=== PATIENT | male | born 1945 | race Caucasian/White ===

== ENCOUNTER 2019-09-14 19:34 | Inpatient (IN) | payer MEDICARE, OTHER ==
[~2019-09-14] VITALS: Ht 175.3 cm; Wt 135.6 kg
[~2019-09-14 19:34] MED LIST: KEFLEX500 MG
[2019-09-14] MEDS ORDERED: SODIUM CHLORIDE 0.9% 1000ML 2,000 ML ONE (20:05)
--- NOTE | 2019-09-14 20:10 | NUR ---
TRIPLE LUMEN CENTRAL LINE PLACED BY ER MD, PT TOLERATED PROCEDURE WELL
[2019-09-14] MEDS ORDERED: ACETAMINOPHEN 325 MG TAB PO ONE (20:20)
--- NOTE | 2019-09-14 20:22 | NUR ---
RAD AT BEDSIDE FOR PORTABLE CHEST XRAY
[2019-09-14] MEDS ORDERED: ALBUTEROL/IPRATROPIUM 3 ML NEB NEB ONE (20:30)
[2019-09-14] MEDS ORDERED: CEFEPIME HCL 1 GM VIAL IV SCH (20:30)
[2019-09-14] MEDS ORDERED: SODIUM CHLORIDE 0.9% IV SCH (20:30)
[2019-09-14] MEDS ORDERED: NOREPINEPHRINE INJ 4MG/4ML 8 MG in DEXTROSE 5% 250ML 250 ML IV PRN (20:30)
--- NOTE | 2019-09-14 20:34 | NUR ---
RT NOTIFIED OF NEBS
[2019-09-14] MEDS ORDERED: NOREPINEPHRINE 8 MG/D5W 250 ML 250 ML ONE (20:38)
[2019-09-14 20:43] LABS: BASOPHILS # (AUTO) 0.1 (0.0-0.1); BASOPHILS % 0.7 % (0.0-1.0); EOSINOPHILS # (AUTO) 0.1 (0.0-0.4); EOSINOPHILS % 0.5 % (0.0-6.0); HEMATOCRIT 37.3 % (38.2-49.6); HEMOGLOBIN 11.8 g/dL (14.0-18.0); LYMPHOCYTES # (AUTO) 1.3 (1.0-3.2); LYMPHOCYTES % 12.5 % (18.0-39.1); MEAN CORPUSCULAR HEMOGLOBIN 33.3 pg (28-32); MEAN CORPUSCULAR HGB CONC 31.6 g/dL (31-35); MEAN CORPUSCULAR VOLUME 105.4 fL (81-99); MONOCYTES # (AUTO) 2.1 (0.2-0.8); MONOCYTES % 20.8 % (4.4-11.3); NEUTROPHILS # (AUTO) 6.6 (2.1-6.9); NEUTROPHILS % 64.4 % (38.7-80.0); PLATELET COUNT 240 x10e3/uL (140-360); RED BLOOD COUNT 3.54 x10e6/uL (4.3-5.7); RED CELL DISTRIBUTION WIDTH 15.8 % (11.7-14.4)
--- NOTE | 2019-09-14 20:47 | Diagnostic Imaging Report ---
EXAMINATION: CHEST SINGLE (PORTABLE) INDICATION: ^SOB ^[id number] ^2029 COMPARISON: None FINDINGS: AP view TUBES and LINES: There is a right IJ central line in place the distal tip at the level of SVC. There is also a kink noted above the clavicle. LUNGS: Lungs are well inflated. There is no evidence of pneumonia or pulmonary edema. PLEURA: No pleural effusion or pneumothorax. HEART AND MEDIASTINUM: The cardiomediastinal silhouette is unremarkable. BONES AND SOFT TISSUES: No acute osseous lesion. Soft tissues are unremarkable. IMPRESSION: Right IJ central line in place the distal tip at the level of SVC and kink noted along the course of the catheter. Signed by: Dwight Serrano MD on 09/14/2019 8:44 PM
[2019-09-14] MEDS: CEFEPIME 1GM/NS 0.9% 50 ML 50 ML IV SCH (20:52)
[2019-09-14 20:53] LABS: INR 0.97; PROTHROMBIN TIME 13.4 seconds (11.9-14.5)
[2019-09-14 20:54] LABS: PARTIAL THROMBOPLASTIN TIME 29.3 seconds (23.8-35.5)
[2019-09-14] MEDS ORDERED: NOREPINEPHRINE 8 MG/D5W 250 ML 250 ML IV PRN (21:00)
[2019-09-14 21:01] LABS: ALBUMIN 2.5 g/dL (3.5-5.0); ALBUMIN/GLOBULIN RATIO 0.8 (0.8-2.0); ANION GAP 25.2 mmol/L (8-16); CALCIUM 9.6 mg/dL (8.4-10.2); CREATININE, SERUM 10.9 mg/dL (0.72-1.25); POTASSIUM 5.2 mmol/L (3.5-5.1)
[2019-09-14 21:07] LABS: CREATINE KINASE MB 7.3 ng/mL (0-5.0)
--- NOTE | 2019-09-14 21:45 | NUR ---
RECTAL TUBE PLACED PER MD ORDER. +LIGHT BROWN STOOL RETURN. PT DID NOT TOLERATE WELL.
[2019-09-14 22:58] VITALS: BP 119/100
--- NOTE | 2019-09-14 23:34 | Diagnostic Imaging Report ---
EXAM: CT Chest, Abdomen and Pelvis WITHOUT contrast INDICATION: ^abdsob ^[id number] ^2213 COMPARISON: None. TECHNIQUE: Chest, abdomen and pelvis were scanned utilizing a multidetector helical scanner from the lung apex to the pubic symphysis without administration of IV contrast. Absence of intravenous contrast decreases sensitivity for detection of focal lesions and vascular pathology. Coronal and sagittal reformations were obtained. Routine protocol was performed. IV CONTRAST: None ORAL CONTRAST: None COMPLICATIONS: None RADIATION DOSE: Total DLP: 1079.5 mGy*cm Estimated effective dose: (DLP x 0.015 x size factor) mSv CTDIvol has been reviewed. It is below the limits set by the Radiation Protocol Committee (RPC). FINDINGS: LINES and TUBES: Right IJ central line in place with tip terminating in mid SVC. Carlson catheter. Rectal tube. LUNGS AND AIRWAYS: Bilateral dependent atelectasis. Bibasilar atelectasis/scarring. Airways are normal. PLEURA: The pleural spaces are clear. HEART AND MEDIASTINUM: The thyroid gland is normal. No mediastinal, hilar or axillary lymphadenopathy. The heart is normal in size.. There is no pericardial effusion. Mild atherosclerotic calcification of aorta and coronary arteries. HEPATOBILIARY: Diffuse hepatic steatosis. Otherwise, unenhanced liver is unremarkable. No focal hepatic lesions. No biliary ductal dilation. GALLBLADDER: No radio-opaque stones. Suspected gallbladder sludge. No wall thickening. SPLEEN: No splenomegaly. PANCREAS: No focal masses or ductal dilatation. ADRENALS: No adrenal nodules KIDNEYS/URETERS: No hydronephrosis. Limited for evaluation of renal parenchyma without intravenous contrast. No stones. GI TRACT: Rectal tube in place. No abnormal distention, wall thickening, or evidence of bowel obstruction. There are diverticula within the colon without evidence of diverticulitis. Appendix is normal. PELVIC ORGANS/BLADDER: Unremarkable. LYMPH NODES: No lymphadenopathy. VESSELS: There is moderate atherosclerotic disease in the aorta and major arterial branches. PERITONEUM / RETROPERITONEUM: No free air or fluid. BONES: Mild degenerative changes of spine. Grade 1 retrolisthesis of L5 in relation to L4. SOFT TISSUES: Unremarkable. IMPRESSION: 1. No definite evidence of acute inflammatory process in the chest, abdomen, or pelvis, considering limitations of unenhanced study. 2. Hepatic steatosis. 3. Colonic diverticulosis without evidence of diverticulitis. Signed by: Dr. Gurpreet Ricketts MD on 09/14/2019 11:31 PM
--- OUTSIDE RECORDS SUMMARY | 2019-09-14 23:59 | XMS REPORT ---
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 Allergies, Adverse Reactions, Alerts This patient has no known allergies or adverse reactions. Medications This patient has no known medications. Results Test Description Test Time Test Comments Text Results Atomic Results Result Comments CT ABDOMEN/PELVIS WO 2019-09-14 22:52:00 [place] [id number] Patient Name: JUANITO FLORES MR #: [id number] : 1945 Age/Sex: 74/M Req #: [id number] [facility] Physician: Ordered by: ROSY BILLS DO Report #: [id number] Location: ER Room/Bed: Procedure: [id number] CT/CT ABDOMEN/PELVIS WO Exam Date: 09/14/19 Exam Time: 2214 REPORT STATUS: Signed EXAM: CT Chest, Abdomen and Pelvis WITHOUT contrast INDICATION: abdsob [id number] 2214 COMPARISON: None. TECHNIQUE: Chest, abdomen and pelvis were scanned utilizing a multidetector helical scanner from the lung apex to the pubic symphysis without administration of IV contrast. Absence of intravenous contrast decreases sensitivity for detection of focal lesions and vascular pathology. Coronal and sagittal reformations were obtained. Routine protocol was performed. IV CONTRAST: None ORAL CONTRAST: None COMPLICATIONS: None RADIATION DOSE: Total DLP: 1079.5 mGy*cm Estimated effective dose: (DLP x 0.015 x size factor) mSv CTDIvol has been reviewed. It is below the limits set by the Radiation Protocol Committee (RPC). FINDINGS: LINES and TUBES: Right IJ central line in place with tip terminating in mid SVC. Carlson catheter. Rectal tube. LUNGS AND AIRWAYS: Bilateral dependent atelectasis. Bibasilar atelectasis/scarring. Airways are normal. PLEURA: The pleural spaces are clear. HEART AND MEDIASTINUM: The thyroid gland is normal. No mediastinal, hilar or axillary lymphadenopathy. The heart is normal in size.. There is no pericardial effusion. Mild atherosclerotic calcification of aorta and coronary arteries. HEPATOBILIARY: Diffuse hepatic steatosis. Otherwise, unenhanced liver is unremarkable. No focal hepatic lesions. No biliary ductal dilation. GALLBLADDER: No radio-opaque stones. Suspected gallbladder sludge. No wall thickening. SPLEEN: No splenomegaly. PANCREAS: No focal masses or ductal dilatation. ADRENALS: No adrenal nodules KIDNEYS/URETERS: No hydronephrosis. Limited for evaluation of renal parenchyma without intravenous contrast. No stones. GI TRACT: Rectal tube in place. No abnormal distention, wall thickening, or evidence of bowel obstruction. There are diverticula within the colon without evidence of diverticulitis. Appendix is normal. PELVIC ORGANS/BLADDER: Unremarkable. LYMPH NODES: No lymphadenopathy. VESSELS: There is moderate atherosclerotic disease in the aorta and major arterial branches. PERITONEUM / RETROPERITONEUM: No free air or fluid. BONES: Mild degenerative changes of spine. Grade 1 retrolisthesis of L5 in relation to L4. SOFT TISSUES: Unremarkable. IMPRESSION: 1. No definite evidence of acute inflammatory process in the chest, abdomen, or pelvis, considering limitations of unenhanced study. 2. Hepatic steatosis. 3. Colonic diverticulosis without evidence of diverticulitis. Signed by: Dr. Gurpreet Engle MD on 09/14/2019 11:31 PM Dictated By: GURPREET ENGLE MD 30 Transcribed By: ROBERT on 09/14/192330 COPY TO: ROSY BILLS DO CT CHEST WO 2019-09-14 22:52:00 [address] [place], [place] [address] Patient Name: JUANITO FLORES MR #: [id number] : 1945 Age/Sex: 74/M Req #: [id number] Adm Physician: Ordered by: ROSY BILLS DO Report #: [id number] Location: ER Room/Bed: Procedure: [id number] CT/CT CHEST WO Exam Date: 09/14/19 Exam Time: 2214 REPORT STATUS: Signed EXAM: CT Chest, Abdomen and Pelvis WITHOUT contrast IND ICATION: abdsob [id number] 2214 COMPARISON: None. TECHNIQUE: Chest, abdomen and pelvis were scanned utilizing a multidetector helical scanner from the lung apex to the pubic symphysis without administration of IV contrast. Absence of intravenous contrast decreases sensitivity for detection of focal lesions and vascular pathology. Coronal and sagittal reformations were obtained. Routine protocol was performed. IV CONTRAST: None ORAL CONTRAST: None COMPLICATIONS: None RADIATION DOSE: Total DLP: 1079.5 mGy*cm Estimated effective dose: (DLP x 0.015 x size factor) mSv CTDIvol has been reviewed. It is below the limits set by the Radiation Protocol Committee (RPC). FINDINGS: LINES and TUBES: Right IJ central line in place with tip terminating in mid SVC. Carlson catheter. Rectal tube. LUNGS AND AIRWAYS: Bilateral dependent atelectasis. Bibasilar atelectasis/scarring. Airways are normal. PLEURA: The pleural spaces are clear. HEART AND MEDIASTINUM: The thyroid gland is normal. No mediastinal, hilar or axillary lymphadenopathy. The heart is normal in size.. There is no pericardial effusion. Mild atherosclerotic calcification of aorta and coronary arteries. HEPATOBILIARY: Diffuse hepatic steatosis. Otherwise, unenhanced liver is unremarkable. No focal hepatic lesions. No b iliary ductal dilation. GALLBLADDER: No radio-opaque stones. Suspected gallbladder sludge. No wall thickening. SPLEEN: No splenomegaly. PANCREAS: No focal masses or ductal dilatation. ADRENALS: No adrenal nodules KIDNEYS/URETERS: No hydronephrosis. Limited for evaluation of renal parenchyma without intravenous contrast. No stones. GI TRACT: Rectal tube in place. No abnormal distention, wall thickening, or evidence of bowel obstruction. There are diverticula within the colon without evidence of diverticulitis. Appendix is normal. PELVIC ORGANS/BLADDER: Unremarkable. LYMPH NODES: No lymphadenopathy. VESSELS: There is moderate atherosclerotic disease in the aorta and major arterial branches. PERITONEUM / RETROPERITONEUM: No free air or fluid. BONES: Mild degenerative changes of spine. Grade 1 retrolisthesis of L5 in relation to L4. SOFT TISSUES: Unremarkable. IMPRESSION: 1. No definite evidence of acute inflammatory process in the chest, abdomen, or pelvis, considering limitations of unenhanced study. 2. Hepatic steatosis. 3. Colonic diverticulosis without evidence of diverticulitis. Signed by: Dr. Gurpreet Engle MD on 09/14/2019 11:31 PM Dictated By: GURPREET ENGLE MD 233 Transcribed By: ROBERT on 09/14/19 233 COPY TO: ROSY BILLS DO CHEST SINGLE (PORTABLE) 2019-09-14 20:42:00 [place] [address] Patient Name: JUANITO FLORES MR #: [id number] : 1945 Age/Sex: 74/M Req #: [id number] Adm Physician: Ordered by: ROSY BILLS DO Report #: [id number] Location: ER Room/Bed: Procedure: [id number] DX/CHEST SINGLE (PORTABLE) Exam Date: 09/14/19 Exam Time: 2029 REPORT STATUS: Signed EXAMINATION: CHEST SINGLE (PORTABLE) INDICATION: SOB [id number] COMPARISON: None FINDINGS: AP view TUBES and LINES: There is a right IJ central line in place the distal tip at the level of SVC. There is also a kink noted above the clavicle. LUNGS: Lungs are well inflated. There is no evidence of pneumonia or pulmonary edema. PLEURA: No pleural effusion or pneumothorax. HEART AND MEDIASTINUM: The cardiomediastinal silhouette is unremarkable. BONES AND SOFT TISSUES: No acute osseous lesion. Soft tissues are unremarkable. IMPRESSION: Right IJ central line in place the distal tip at the level of SVC and kink noted along the course of the catheter. Signed by: Dwight Pike MD on 09/14/2019 8:44 PM Dictated By: DWIGHT PIKE MD 43 Transcribed By: ROBERT on 09/14/192043 COPY TO: ROSY BILLS DO
[2019-09-15] VITALS (33 sets, daily range): BP systolic 53–131; BP diastolic 22–97
[2019-09-15] MEDS ORDERED: SODIUM BICARBONATE 8.4% SYRING 75 ML in DEXTROSE 5%/0.45% SOD CHL 1,000 ML IV SCH ×2
[2019-09-15] MEDS: METRONIDAZOLE 500MG/NS 100ML 100 ML IV SCH ×2 (00:49→06:36)
[2019-09-15 02:15] LABS: CLARITY,URINE HAZY (CLEAR); COLOR,URINE AMBER (YELLOW)
[2019-09-15] MEDS ORDERED: DILTIAZEM HCL60 MG PO (02:15)
[2019-09-15] MEDS ORDERED: CYANOCOBALAMIN INJ 1,000 MCG/ML VIAL IM ONE (02:15)
[2019-09-15] MEDS ORDERED: THIAMINE HCL INJ 100 MG/ML 2ML VIAL IV ONE (02:15)
[2019-09-15 02:16] LABS: KETONES,URINE NEGATIVE (NEGATIVE); LEUKOCYTE ESTERASE ,URINE NEGATIVE (NEGATIVE); NITRITE,URINE NEGATIVE (NEGATIVE); PROTEIN,URINE DIPSTICK 1+ (NEGATIVE); URINE UROBILINOGEN 0.2 mg/dL (0.2 - 1)
[2019-09-15] MEDS ORDERED: LOSARTAN POTAS100 MG PO (02:16)
[2019-09-15] MEDS ORDERED: ATORVASTATIN CA10 MG PO (02:16)
[2019-09-15 02:17] LABS: AMORPHOUS SEDIMENT,URINE MANY (FEW); BACTERIA,URINE MANY /HPF; BILIRUBIN,URINE MODERATE (NEGATIVE); EPITHELIAL CELLS,URINE MODERATE /LPF
[2019-09-15] MEDS ORDERED: PENTASA500 MG PO (02:17)
--- NOTE | 2019-09-15 02:45 | NUR ---
Pt refusing to go to CT scan at this time. Pt states to leave him alone to let him sleep. I explained the importance by pt continued to refuse. Pt has medications schedule at 0600 and will ask him again to go to CT scan at that time.
[2019-09-15 05:20] LABS: BASOPHILS % 0.3 % (0.0-1.0); EOSINOPHILS % 0.1 % (0.0-6.0); HEMATOCRIT 35.4 % (38.2-49.6); HEMOGLOBIN 11.1 g/dL (14.0-18.0); LYMPHOCYTES # (AUTO) 0.3 (1.0-3.2); LYMPHOCYTES % 3.5 % (18.0-39.1); MEAN CORPUSCULAR HEMOGLOBIN 33.6 pg (28-32); MEAN CORPUSCULAR HGB CONC 31.4 g/dL (31-35); MEAN CORPUSCULAR VOLUME 107.3 fL (81-99); MONOCYTES # (AUTO) 0.2 (0.2-0.8); MONOCYTES % 1.7 % (4.4-11.3); NEUTROPHILS % 93.4 % (38.7-80.0); PLATELET COUNT 232 x10e3/uL (140-360); RED CELL DISTRIBUTION WIDTH 15.9 % (11.7-14.4)
[2019-09-15 05:41] LABS: ALBUMIN 2.4 g/dL (3.5-5.0); ALBUMIN/GLOBULIN RATIO 0.8 (0.8-2.0); ANION GAP 23.2 mmol/L (8-16); CALCIUM 8.4 mg/dL (8.4-10.2); CREATININE, SERUM 9.47 mg/dL (0.72-1.25); POTASSIUM 5.2 mmol/L (3.5-5.1)
--- NOTE | 2019-09-15 07:00 | NUR ---
Bedside report given to Tasha Armstrong RN.
[2019-09-15 07:08] LABS: BAND NEUTROPHILS % (MANUAL) 2 %; LYMPHOCYTES % (MANUAL) 4 % (19-48); MONOCYTES % (MANUAL) 1 % (3.4-9.0); NEUTROPHILS % (MANUAL) 93 % (40-74); PLATELET ESTIMATE ADEQUATE; PLATELET MORPHOLOGY COMMENT NORMAL; TOXIC GRANULATION MODERATE
[2019-09-15 07:09] LABS: ANISOCYTOSIS SLIGHT; RBC MORPHOLOGY COMMENT ABNORMAL
[2019-09-15] MEDS ORDERED: DIGOXIN INJ 0.25 MG/ML 2 ML AMP IV STA (07:29)
--- NOTE | 2019-09-15 07:40 | NUR ---
PT NOTED WITH HR IN 135-140'S AT THIS TIME, PT DENIES ANY CHEST PAIN/PRESSURE OF SOB, CALLED RECEIVED ORDERS.
[2019-09-15] MEDS: CEFEPIME 1GM/NS 0.9% 50 ML 50 ML IV SCH (07:54)
[2019-09-15] MEDS: FOLIC ACID 1 MG TAB PO SCH (07:57)
--- NOTE | 2019-09-15 08:38 | NUR ---
NOTIFIED PT HR STILL IN 130'S AFTER DOSE OF DIGOXIN, RECEIVED ORDERS
[2019-09-15] MEDS ORDERED: DILTIAZEM HCL 125 ML IV SCH (09:00)
--- NOTE | 2019-09-15 09:15 | Consultation ---
DATE OF CONSULTATION: 09/15/2019 Pulmonary Critical Care Consultation CHIEF COMPLAINT: Neck/back pain, weakness, difficulty walking, and diarrhea. HISTORY OF PRESENT ILLNESS: The patient is a 74-year-old man. He reports a history of chronic neck pain, chronic back pain, diabetes, and hypertension. Approximately 4 weeks ago, he had a spinal injection for chronic low back pain. He subsequently developed difficulty walking and reports that he fell and fractured a rib. He also had a small pneumothorax at that time. He also complains of and diarrhea and abdominal cramping for the past 7-10 days. He has noted possible fevers. He also complains of worsening weakness and difficulty walking. When he came to the emergency department, he was found to have a creatinine of 10 with a baseline of 1.98 two years ago. He was started on intravenous fluids as well as Levophed and antibiotics. His blood pressure is subsequently improved and his Levophed was down to 5. PAST SURGICAL HISTORY: 1. Status post drainage of perirectal abscess in 2017. 2. History of spinal injections for chronic back pain. 3. History of prior hip surgery. PAST MEDICAL HISTORY: 1. Crohn disease. 2. Hypertension. 3. Diabetes. 4. Chronic neck pain. 5. Chronic back pain. 6. Chronic renal insufficiency. SOCIAL HISTORY: The patient is a smoker. He smokes about half a pack a day. He has several drinks a day. He lives in [facility] at times, but also travels back and forth to the [facility] [address]. ALLERGIES: THERE ARE NO KNOWN DRUG ALLERGIES. FAMILY HISTORY: Noncontributory. REVIEW OF SYSTEMS: The patient may have had fevers. He has no headache. He has chronic neck pain. He has no chest pain. He does complain of some dyspnea. He has some abdominal cramping. He reports some diarrhea. He reports leg weakness as well as arm weakness. He has difficulty walking. PHYSICAL EXAMINATION: VITAL SIGNS: The patient is afebrile. The blood pressure is 102/35 with a pulse of 66 and saturation 97%. HEENT: No facial swelling or erythema. LYMPHATIC: No submandibular, cervical, or supraclavicular adenopathy. CARDIAC: Reveals regular rate and rhythm with normal S1, S2. LUNGS: Auscultation of lungs reveals clear breath sounds bilaterally. There is wheezing. ABDOMEN: Soft, though there is tenderness. There is no rebound. There is some weakness in the lower extremities. There is no leg edema. RADIOGRAPHIC DATA: 1. CT scan of the abdomen and pelvis shows some diverticulosis, but no evidence of diverticulitis. He has some hepatic steatosis. 2. His CT scan of the chest shows no acute disease. LABORATORY DATA: White blood cell count is 10.2 and hemoglobin is 11.8. The platelet count is 240. Sodium is 133 and carbon dioxide is 13 with an anion gap of 20. BUN is 116. Creatinine is 10.9. Lactic acid is normal. BNP is 249. IMPRESSION: 1. Acute renal failure. 2. History of Crohn disease with acute onset of diarrhea. 3. Chronic neck pain with worsening gait. 4. Chronic lower back pain. 5. Pneumothorax, rib fracture from a fall last month. 6. Hypertension. 7. Possible chronic obstructive pulmonary disease. PLAN: 1. The patient is receiving IV fluids. 2. Continue to monitor renal function and urine output. 3. Continue antibiotics and await culture results. 4. GI evaluation. 5. CT or MRI of the cervical spine and lumbar spine. 6. Consider neurological consultation. Sae Loja MD [facility]/MODL /[id number]
--- NOTE | 2019-09-15 09:21 | NUR ---
SPOKE TO PATIENT REGARDING CT, PT STATES "NOW YOU JUST FORGET IT JOSEPH ALREADY DONE IT 3 OTHER TIMES AND THEY NEVER DO NOTHING, JUST TELL THEM I SAID NO"
[2019-09-15] MEDS ORDERED: LORAZEPAM INJ 2 MG/ML VIAL IV PRN (10:30)
[2019-09-15] MEDS: SODIUM BICARBONATE 8.4% 75 ML in DEXTROSE 5%/0.45% SOD CHL 1,000 ML IV SCH ×2 (10:41→17:34)
[2019-09-15] MEDS ORDERED: ADENOSINE 6 MG/2 ML VIAL IV PRN (10:45)
[2019-09-15] MEDS ORDERED: INSULIN REGULAR, HUMAN 100 UNIT/1 ML 3ML VIAL IV ONE (11:30)
[2019-09-15] MEDS ORDERED: DEXTROSE 50% SYRINGE 50 ML IV ONE (11:30)
--- NOTE | 2019-09-15 13:35 | Consultation ---
DATE OF CONSULTATION: 09/14/2019 Cardiology Consultation CONSULTING PHYSICIAN: Ector Gomez MD, Interventional Cardiology. REASON FOR CONSULTATION: Tachycardia/arrhythmia. HISTORY OF PRESENT ILLNESS: Mr. Brown is a 74-year-old pleasant man with history of morbid obesity, hypertension, Crohn disease, diabetes mellitus, CKD, active smoking, and chronic back pain, who presents with several days of diarrhea. He was found to have acute renal failure, hypotension requiring pressors. He was initiated on antibiotics and is transferred to ICU for further care. He denies any chest pain or shortness of breath. On telemetry, he is noted to have episodes of sinus rhythm alternating with supraventricular tachycardia, short RP interval, rate in 130s, this seems paroxysmal in onset. He has associated palpitations, ptosis. He describes several years ago an episode of tachyarrhythmia for which he was placed on diltiazem at that time. He is currently living in [facility] and frequently travels back to visit his mother. His mother is currently hospitalized in this hospital. REVIEW OF SYSTEMS: A 12-system review is negative except for as noted above. PAST SURGICAL HISTORY: Remarkable for spinal injections, prior head surgery, drainage of perirectal abscess. PAST MEDICAL HISTORY: Includes hypertension, diabetes, chronic back pain, chronic renal disease, Crohn disease, tachyarrhythmia, unspecified. SOCIAL HISTORY: Smoker, half a pack a day. Occasional alcohol use. No drug use. Lives in [facility]. ALLERGIES: NO KNOWN DRUG ALLERGIES. FAMILY HISTORY: Noncontributory. PHYSICAL EXAMINATION: VITAL SIGNS: Temperature 98.9, heart rate 71, respiratory rate 22, blood pressure 105/37, O2 saturation 99% on 2 L/minute nasal cannula. GENERAL: No acute distress, alert. NECK: No JVD. CHEST: Clear to auscultation. CARDIOVASCULAR: Regular rate and rhythm. Normal S1, S2. Distant heart sounds. No murmurs or rubs. No S3 or S4. ABDOMEN: Soft. No rebound or guarding. Bowel sounds positive. EXTREMITIES: Without edema. Warm distal extremities. CARDIOVASCULAR MEDICATIONS: Reviewed. Levophed drip, heparin 5000 units subcu every 12 hours, sodium bicarbonate IV drip. LABORATORY STUDIES: White blood cells 8.6, hemoglobin 11, platelets 232. INR 0.9, PT 13.4, PTT 29.3. Sodium 134, potassium 5.2, chloride 105, bicarbonate 11, BUN 105, creatinine 9.47, glucose 222, lactic acid 1.2, total bilirubin is 0.6, AST 32, ALT 60, alkaline phosphatase 107. BNP 249, total protein 5.5, albumin 2.4. EKG reveals short RP tachycardia. Impressions of supraventricular tachycardia. Abdomen and pelvis CT remarkable for no definitive evidence of acute inflammatory process in chest, abdomen, or pelvis considering limitations of study, hepatic steatosis, colonic diverticulosis without evidence of diverticulitis. ASSESSMENT: 1. A 74-year-old man with history of Crohn disease, hypertension, diabetes, obesity, chronic back pain and history of arrhythmia, unspecified presents with diarrhea. 2. Shock, severe sepsis with septic shock versus hypovolemic shock, status post fluid resuscitation, now requiring pressors. 3. Acute renal failure. 4. Paroxysmal supraventricular tachycardia. RECOMMENDATIONS: 1. Adenosine 6 mg IV push p.r.n. SVT, can follow with 12 mg IV push if initial bolus does not resolve arrhythmia. 2. Wean pressors as tolerated. 3. Antibiotics and IV fluids per primary service. 4. Obtain echocardiogram. 5. We will follow closely with you. Thank you for the opportunity to participate in the care of Mr. Brown. Ector Clayton MD [facility]/NICK /[id number]
[2019-09-15] MEDS ORDERED: METRONIDAZOLE 500MG/NS 100ML 100 ML IV SCH (14:00)
[2019-09-15] MEDS: VANCOMYCIN 250MG/5ML ORAL SOLN PO SCH ×2 (14:05→17:34)
--- NOTE | 2019-09-15 19:00 | NUR ---
Report received. Assumed care. Assessment done. See interventions. O2 per NC 2L. IV: D51/2 NS with 75ml NaHco3 infusing @ 150ml/hr. Rectal tube in place with liquid brown stool.
[2019-09-15] MEDS: HEPARIN SOD (PORCINE) 5,000 UNIT/ML VIAL SC SCH (21:00)
--- NOTE | 2019-09-15 22:23 | Consultation ---
DATE OF CONSULTATION: 09/15/2019 ADDITIONAL REQUESTING PHYSICIAN: Cam Gardner MD. REASON FOR CONSULT: Acute kidney injury. HISTORY OF PRESENT ILLNESS: A 74-year-old male with history of chronic kidney disease, baseline creatinine about 2 mg%. Apparently, [place] had been [place] of the [place]. Additionally, had a low back pain for which he has spinal infection. Has severe diarrhea for the last 7-10 days, felt weak, had more trouble ambulating, creatinine was found to be 10. He was on hypotensive, essentially in shock, started on pressors. His breathing is better. Blood pressure is slowly improving. He is making some urine. Creatinine was 10.4 at admission, gradually come down to 9.47. Potassium is 5.2. Serum CO2 is 11. IV fluids with 75 mg/L of sodium bicarbonate are running. The UA showed 1+ protein and some blood. However, the CPK was not overly elevated, only at 124 arguing in significant rhabdomyolysis. CT scan is not showing any hydronephrosis or ureteric obstruction. There is quite a bit of diverticulosis. He says the diarrhea has been nonbloody. Currently, he is feeling somewhat better. PAST MEDICAL HISTORY: 1. Likely CKD stage 3. 2. Type 2 diabetes. 3. Apparent history of Crohn's disease. 4. Hypertension. 5. Chronic back pain. SOCIAL HISTORY: Lives in [facility], traveling back and forth. A half pack-a-day smoker. According to him, more than two drinks per day. FAMILY HISTORY: No kidney problems. REVIEW OF SYSTEMS: CONSTITUTIONAL: He is weak, may have had some fever. CARDIAC: No angina or syncope. RESPIRATORY: Had dyspnea. MUSCULOSKELETAL: Multiple back and neck pains. GI: Diarrhea is present. No blood in the diarrhea, had abdominal cramping. NEURO: Weakness, generalized. Rest of review is negative. PHYSICAL EXAMINATION: GENERAL: Lying in bed, no distress. VITAL SIGNS: Temperature is 99, pulse 71, blood pressure is 113/38. HEENT: Grossly atraumatic. NECK: Neck is thick. CHEST: Diminished breath sounds at the bases. Large habitus is noted. CARDIAC: Normal heart tones. Rhythm sounds regular at this time. ABDOMEN: Soft with minimal generalized tenderness. No definite guarding or rigidity. EXTREMITIES: No edema. NEURO: Appears to be alert and appropriate. Speech is normal. LABORATORY DATA: Potassium 5.2, serum CO2 of 11, creatinine 9.47, BUN 105, which is somewhat improved. Hemoglobin is 11.1, platelets are not depressed at 232. WBC 8.62. Total bilirubin is 0.6. ALT 60, AST normal. Serum CO2 is 11. UA shows positive protein and blood. Some bacteria and sediment are noted. No casts or such were reported. C diff studies are pending. ASSESSMENT: 1. Acute kidney injury, likely at this point, progressive tubular necrosis. 2. Necrotic shock. 3. Volume depletion. 4. Chronic metabolic acidosis from loss of GFR and GI losses, potentially mass on lactic acidosis to given the presumed anaerobic metabolism in the situation. 5. Of note, ketones were negative on the dipstick, which is not 100% sensitive. 6. Minimal hyperkalemia. PLAN: 1. From renal standpoint, blood pressure actually seems to be improving. We will however, increase the change the fluids D5 water with three amps of bicarbonate if sugar become a problem, we can change it to sterile water with three amps of bicarbonate. 2. Continue blood pressure support and wean pressors as tolerated. 3. Avoid NSAIDs and other nephrotoxins. 4. Agree with stopping his losartan which might contribute to the loss of GFR, although that effect should be reversible. 5. Monitor for renal recovery. Monitor Is and Os. 6. One dose of insulin and dextrose for the hyperkalemia. 7. Complex patient, at this point, we will hold off on dialysis and treat conservatively. 8. We will follow along. MD DERIC Roach/MODL /[id number]
--- NOTE | 2019-09-15 23:30 | NUR ---
Central line pulled out by pt. Sutures removed.
[2019-09-16] VITALS (13 sets, daily range): BP systolic 82–150; BP diastolic 39–116
--- NOTE | 2019-09-16 | NUR ---
Peripheral IV started to LFA with 20 ga catheter by Michelle Ignacio RN.
--- NOTE | 2019-09-16 00:05 | NUR ---
IV restrarted to new site.
[2019-09-16] MEDS: SODIUM BICARBONATE 8.4% 75 ML in DEXTROSE 5%/0.45% SOD CHL 1,000 ML IV SCH ×3 (01:15→11:02)
[2019-09-16] MEDS: VANCOMYCIN 250MG/5ML ORAL SOLN PO SCH ×4 (01:44→17:56)
[2019-09-16 05:27] LABS: BASOPHILS % 0.2 % (0.0-1.0); EOSINOPHILS % 0.1 % (0.0-6.0); HEMATOCRIT 32.3 % (38.2-49.6); HEMOGLOBIN 10.5 g/dL (14.0-18.0); LYMPHOCYTES # (AUTO) 0.3 (1.0-3.2); LYMPHOCYTES % 2.8 % (18.0-39.1); MEAN CORPUSCULAR HGB CONC 32.5 g/dL (31-35); MEAN CORPUSCULAR VOLUME 101.6 fL (81-99); MONOCYTES % 7.9 % (4.4-11.3); NEUTROPHILS # (AUTO) 10.6 (2.1-6.9); NEUTROPHILS % 88.2 % (38.7-80.0); PLATELET COUNT 206 x10e3/uL (140-360); RED BLOOD COUNT 3.18 x10e6/uL (4.3-5.7); RED CELL DISTRIBUTION WIDTH 15.6 % (11.7-14.4)
[2019-09-16 06:03] LABS: ALBUMIN 2.4 g/dL (3.5-5.0); ALBUMIN/GLOBULIN RATIO 0.8 (0.8-2.0); CALCIUM 8.6 mg/dL (8.4-10.2); CREATININE, SERUM 6.37 mg/dL (0.72-1.25); MAGNESIUM 1.6 MG/DL (1.3-2.1)
--- NOTE | 2019-09-16 07:12 | Consultation ---
DATE OF CONSULTATION: 09/15/2019 GI Consult Note CONSULTING PHYSICIAN: Sae Loja MD. REASON FOR CONSULT: 1. Crohn's disease. 2. Stool C diff antigen positive. HISTORY OF PRESENTING ILLNESS: A 74-year-old male from whom I cannot derive any history at this time. He is very poor historian. He appears to be confused at this time. He got admitted with acute renal failure with a creatinine of 10. Currently being aggressively hydrated. He also gave the history. He also complained about chronic diarrhea. He tells that he has a Crohn disease. He has stop taking medication for Crohn's. When I asked him which gastroenterologists he follow. Then, he says he does not know. He has a house in [facility] also. He lives partly in [place] and partly in [facility]. He recently returned from [facility]. He denies whether he was treated with any antibiotic recently. The patient otherwise denies any nausea, vomiting, or abdominal pain. He has a chronic backache, he has had a spinal injection for chronic back pain recently. Following spinal injection, he had some trouble walking after that he fell and fractured a rib. He developed a small pneumothorax that is being managed by Pulmonary Service. REVIEW OF SYSTEMS: Twelve point system reviewed, symptomatology is limited as per HPI. PAST MEDICAL HISTORY: Perirectal abscess in 2017, chronic backache, type 2 diabetes, hypertension, Crohn's disease (It is not clear whether the patient has a Crohn disease of small bowel, colon, or both). Chronic renal insufficiency, chronic neck pain, chronic back pain. FAMILY HISTORY: Negative for any GI or CLIENT EXPERIENCE SPECIALIST malignancies. SOCIAL HISTORY: Chronic smoker. Smokes about half pack a day. He drinks almost on a regular basis. He denies using any illicit drugs. ALLERGIES: NO KNOWN DRUG ALLERGIES. HOME MEDICATIONS: 1. Atorvastatin. 2. Diltiazem. 3. Losartan. 4. Mesalamine. 5. Cephalexin. INPATIENT MEDICATION: Reviewed as per DEC. He has been started on oral vancomycin along with other medication. PHYSICAL EXAMINATION: VITAL SIGNS: Temperature 98.6, pulse 81, respirations 23, blood pressure 98/54, oxygen saturation 100% on 2 L of nasal cannula. GENERAL: Obese body habitus, not in any acute or apparent distress but confused. HEENT: Oral mucosa is moist. Short and thick neck. Anicteric sclerae. CVS: S1, S2 regular, but tachy with a 2/6 flow murmur at the apex. LUNGS: Bilaterally grossly clear, poorly audible breath sounds. ABDOMEN: Obese, soft, nondistended, mild lower quadrant tenderness on deep palpation without rebound, rigidity or guarding. Positive bowel sounds. EXTREMITIES: Warm, trace bilateral leg edema. LABORATORY DATA: WBC 8.62, hemoglobin 11.1, hematocrit 35.4, MCV 107.3, and platelet count 232. Sodium 134, potassium 5.2, chloride 105, bicarb 11, BUN 105, creatinine 9.47, it is down from 10.90. Liver enzymes showed a total bilirubin 0.6, AST 32, ALT 60, alkaline phosphatase 107. Stool C diff antigen positive. Stool lactoferrin negative. CT of the abdomen and pelvis without contrast showed no definite evidence of any acute inflammatory process in chest, abdomen, and pelvis, considering limitation of unenhanced study. 1. Hepatic steatosis. 2. Colonic diverticulosis without any evidence of diverticulitis. IMPRESSION: 1. Diarrhea secondary to Clostridium difficile. 2. Crohn disease, not clear whether he has small bowel or colon or both. Outpatient medication includes none of the medication that will treat for Crohn disease. So this history needs to be explored further. 3. Alcoholic fatty liver. 4. Acute renal failure. PLAN: Continue IV fluid hydration. Agree to continue oral vancomycin. The patient currently has a rectal tube, which is draining liquid stool. Monitor him clinically. Once patient is mentally more interactive, which I believe after renal failure is resolved. We will obtain a detailed history regarding Crohn's disease. He should also get further . I thank Dr. Loja for allowing me to participate in the care of this patient. Nicola Light MD SA/NICK /[id number]
[2019-09-16 07:23] LABS: BAND NEUTROPHILS % (MANUAL) 7 %; LYMPHOCYTES % (MANUAL) 4 % (19-48); MONOCYTES % (MANUAL) 3 % (3.4-9.0); NEUTROPHILS % (MANUAL) 86 % (40-74)
[2019-09-16 07:24] LABS: POLYCHROMASIA FEW
[2019-09-16 07:25] LABS: ANISOCYTOSIS SLIGHT
[2019-09-16 07:28] LABS: PLATELET ESTIMATE ADEQUATE; TOXIC GRANULATION MODERATE
[2019-09-16 07:29] LABS: PLATELET MORPHOLOGY COMMENT FEW LARGE
--- NOTE | 2019-09-16 07:37 | Diagnostic Imaging Report ---
EXAMINATION: Bibasilar atelectasis. COMPARISON: CT chest 09/14/2019 INDICATION: ^sob ^[id number] ^[id number] DISCUSSION: Frontal view of the chest obtained at 0633 hours. HEART AND MEDIASTINUM: Stable mild cardiomegaly due to prominent pericardial fat pads. LINES: None. LUNGS: Bibasilar atelectasis, left greater than right. No pneumonia or pulmonary edema. PLEURA: No pleural effusion or pneumothorax. BONES AND SOFT TISSUES: No focal osseous lesion. The soft tissues are normal. IMPRESSION: Bibasilar atelectasis. Signed by: Dr. Lisa Johnson MD on 09/16/2019 7:34 AM
--- NOTE | 2019-09-16 08:05 | NUR ---
PT CONTINUING TO ATTEMPT TO PULL OUT IV LINE WHEN ASKED WHY HE SAYS BECAUSE I WANT TO, THIS RN EXPLAINED THAT IS WAS NECESSARY FOR TREATMENT WHILE HE WAS IN THE HOSPITAL PT THEN STATES " THEN LET ME GET OUT OF HERE, YOU CANT TELL ME WHAT TO DO " WILL CONTINUE TO MONITOR CLOSELY
[2019-09-16] MEDS: FOLIC ACID 1 MG TAB PO SCH (08:07)
--- NOTE | 2019-09-16 08:24 | NUR ---
PATIENT CONTINUES TO TAKE GOWN OFF AND PULL AT IV LINE AND [place] CATHETER WHEN ASKED WHY HE IS DOING THAT HE STATED " BECAUSE I WANT TO GET OUT OF HERE, LEAVE ME ALONE" THIS RN ASSESSING ORIENTATION ASKED WHAT HIS NAME WAS PT RESPONDED APPROPRIATELY THEN STATES " LET ME GUESS WHAT YOU'RE GONNA ASK ME NEXT WHERE AM I? WHAT YEAR IS THIS, WHY DONT YOU ANSWER ME WHAT YEAR IT IS"
[2019-09-16] MEDS: HEPARIN SOD (PORCINE) 5,000 UNIT/ML VIAL SC SCH ×2 (08:32→21:00)
[2019-09-16] MEDS ORDERED: CEFEPIME 1GM/NS 0.9% 50 ML 50 ML IV SCH (08:45)
--- NOTE | 2019-09-16 10:30 | NUR ---
PT TO BE TRANSFERRED TO ROOM 213, PRIOR TO TRANSFER PATIENT PULLED OUT IV TO L FA, PRESSURE AND DRESSING APPLIED. NEW IVS STARTED X2. SPOKE TO REGARDING PT BEHAVIOR PROBLEMS PT IS ORIENTED BUT IS USING PROFANITY AND SAYING INAPPROPRIATE THINGS AT THIS TIME.
--- NOTE | 2019-09-16 11:03 | NUR ---
Patient resting in bed this time, Alert with no distress, on IV fluids, bed alarm ON
--- NOTE | 2019-09-16 12:29 | NUR ---
Patient is agitated pulled out IV, Trying to pull out Carlson's catheter, pulled out Tele box leads, trying to get out from Bed. Redirected him ,PRN ativan IV given, Bed alarm ON, Keep monitoring
--- NOTE | 2019-09-16 13:28 | NUR ---
Patient still anxious, trying to get out bed, trying to hit everybody, notified Dr Gardner, new order recvd to give Geodon 10mg IM x1 DOSE, Also order recvd to DC rectal tube.
[2019-09-16 13:44] LABS: ABG HCO3 20 mmol/L (23-28); ABG PCO2 33 mmHg (41-51); ABG PH 7.38 (7.31-7.41); ABG PO2 85 mmHg (80-105)
[2019-09-16] MEDS ORDERED: ZIPRASIDONE 20 MG VIAL IM ONE (14:30)
--- NOTE | 2019-09-16 19:10 | NUR ---
received report from day nurse. patient is asleep in bed. bed is in lowest position and call dominguez is within reach. respirations are even and unlabored. on O2 via the nasal cannula. will continue to monitor patient.
[2019-09-17] VITALS (56 sets, daily range): BP systolic 75–153; BP diastolic 25–99
--- NOTE | 2019-09-17 | NUR ---
paged regarding elevated heart rate of patient. Awaiting call back from physician.
--- NOTE | 2019-09-17 00:30 | NUR ---
TELEPRINTER INSTALLER called regarding patient's elevated heart rate. received orders for one time dose of metoprolol 5mg IV.
--- NOTE | 2019-09-17 00:35 | Progress Note ---
DATE: 09/16/2019 GI Progress Note SUBJECTIVE: The patient is very combative, agitated. He pulled out his IV. He is on 1:1 observation. Currently he is sleeping. REVIEW OF SYSTEMS: Unobtainable. MEDICATIONS: Sodium bicarbonate with normal saline IV fluid, heparin 5000 units subcu twice daily, folic acid 1 mg daily, vancomycin 125 mg p.o. q.i.d., adenosine 6 mg IV x1. OBJECTIVE: VITAL SIGNS: Temperature 97.5, pulse 72, respirations 20, blood pressure 129/65, oxygen saturation 95% on 2 L of nasal cannula. GENERAL: Obese body habitus. Currently drowsy, lethargic and sleepy. HEENT: Oral mucosa is moist. Anicteric sclerae. ABDOMEN: Massive abdominal obesity. Soft. Mild lower quadrant tenderness on deep palpation. Bowel sounds present. LABORATORY DATA: WBC 11.97, hemoglobin 10.5, hematocrit 32.3, MCV 101.6, and platelet count 206. Sodium 138, potassium 4.0, chloride 106, bicarb 17, BUN 94, creatinine 6.37, glucose 174. Liver enzymes showed AST 27, ALT 63, alkaline phosphatase 103, total bilirubin 0.5. Stool for C. diff positive. Urinalysis showed wbc 6 to 10 per high-power field. IMPRESSION: 1. Clostridium difficile-associated diarrhea. 2. Questionable Crohn disease. 3. Alcoholic fatty liver. 4. Profound acute renal failure. PLAN: Continue oral vancomycin. Check acute viral hepatitis serology given mildly elevated aminotransferases, this is likely due to underlying fatty liver. However, such as hepatitis C needs to be excluded. Nicola Light MD SA/MODL /[id number]
[2019-09-17] MEDS ORDERED: METOPROLOL TARTRATE INJ 1 MG/ML VIAL IV ONE (00:45)
[2019-09-17] MEDS ORDERED: METOPROLOL TARTRATE INJ 1 MG/ML VIAL IV PRN (01:00)
--- NOTE | 2019-09-17 01:00 | NUR ---
Director Stars returned call, received new order for metoprolol 5mg IV q 8 hours as needed for heart rate greater than 120. also received new order to transfer patient to [facility].
[2019-09-17] MEDS: SODIUM BICARBONATE 8.4% 75 ML in DEXTROSE 5%/0.45% SOD CHL 1,000 ML IV SCH ×3 (01:40→15:38)
[2019-09-17 03:11] LABS: BASOPHILS % 0.3 % (0.0-1.0); EOSINOPHILS % 0.1 % (0.0-6.0); HEMATOCRIT 35.1 % (38.2-49.6); HEMOGLOBIN 11.2 g/dL (14.0-18.0); LYMPHOCYTES # (AUTO) 0.9 (1.0-3.2); LYMPHOCYTES % 7.9 % (18.0-39.1); MEAN CORPUSCULAR HEMOGLOBIN 33.7 pg (28-32); MEAN CORPUSCULAR HGB CONC 31.9 g/dL (31-35); MONOCYTES # (AUTO) 1.1 (0.2-0.8); MONOCYTES % 9.8 % (4.4-11.3); NEUTROPHILS # (AUTO) 8.6 (2.1-6.9); NEUTROPHILS % 80.5 % (38.7-80.0); PLATELET COUNT 194 x10e3/uL (140-360); RED BLOOD COUNT 3.32 x10e6/uL (4.3-5.7); RED CELL DISTRIBUTION WIDTH 15.9 % (11.7-14.4)
[2019-09-17 03:18] LABS: MEAN CORPUSCULAR VOLUME 105.7 fL (81-99)
[2019-09-17 03:28] LABS: ANION GAP 17.9 mmol/L (8-16); CALCIUM 8.7 mg/dL (8.4-10.2); CREATININE, SERUM 3.9 mg/dL (0.72-1.25); POTASSIUM 3.9 mmol/L (3.5-5.1)
--- NOTE | 2019-09-17 04:41 | Progress Note ---
DATE: 09/16/2019 Cardiology Progress Note SUBJECTIVE: Confused, somnolent. OBJECTIVE: VITAL SIGNS: Temperature 97.5, heart rate 72, respiratory rate 20, blood pressure 129/65, O2 saturation 95%, BMI 42. GENERAL: Confused and somnolent. NECK: No JVD. CHEST: Clear to auscultation. CARDIOVASCULAR: Regular rate and rhythm. Normal S1 and S2. ABDOMEN: Soft. EXTREMITIES: No edema. CARDIOVASCULAR MEDICATIONS: Reviewed. Adenosine 6 mg IV p.r.n. LABORATORY STUDIES: Sodium bicarbonate studies reviewed. Creatinine 6.3, potassium 4, bicarbonate 17. Hemoglobin 10.7, platelets 204. ASSESSMENT AND PLAN: 1. Acute renal failure. 2. Status post severe sepsis with septic shock. 3. Diarrhea. 4. Paroxysmal supraventricular tachycardia. RECOMMENDATIONS: 1. P.r.n. adenosine. 2. Currently confused, sitter at bedside. 3. Echocardiogram limited by the patient's confused state limiting completion of study. Grossly preserved left ventricular systolic function. No evidence of significant decrease in excursion of valves. Ector Clayton MD AFMitzi/MODL /[id number] MTDD
[2019-09-17] MEDS: VANCOMYCIN 250MG/5ML ORAL SOLN PO SCH ×5 (05:57→23:33)
--- NOTE | 2019-09-17 06:24 | NUR ---
Dr. José Antonio Loja notified of pt's transfer to ICU and of HR still sustained in 140s. New orders noted. See eMAR Addendum: 09/17/19 at 0652 by Dalton Ignacio RN also notified of pt's SBP in the 80s. Lab results read to . new orders noted
[2019-09-17] MEDS ORDERED: ALBUMIN 25% 25GM 100ML 0.25 GM/ML BTL IV ONE (06:30)
[2019-09-17] MEDS ORDERED: DIGOXIN INJ 0.25 MG/ML 2 ML AMP IV PRN (06:30)
--- NOTE | 2019-09-17 06:35 | NUR ---
Dalton PRETTY notified Dr. Nathaniel Loja of CBC, BMP, and Lactic Acid results, HR and BP. New orders received, please refer to Dalton's notes/border patrol officer.
[2019-09-17] MEDS ORDERED: ALBUMIN 25% 12.5GM 50ML 200 ML IV ONE (06:45)
[2019-09-17] MEDS ORDERED: AMIODARONE HCL 150MG 100 ML IV ONE ×2 (08:15→09:15)
[2019-09-17] MEDS ORDERED: AMIODARONE HCL 900 MG in DEXTROSE 5% 500ML 500 ML IV SCH ×2 (08:15→09:15)
[2019-09-17] MEDS ORDERED: LORAZEPAM INJ 2 MG/ML VIAL ONE (08:29)
[2019-09-17] MEDS ORDERED: AMIODARONE HCL 150 MG in DEXTROSE 5% 100ML 100 ML IV SCH ×2 (08:45→09:55)
[2019-09-17] MEDS ORDERED: NOREPINEPHRINE 8 MG/D5W 250 ML 250 ML ONE (08:50)
[2019-09-17] MEDS: HEPARIN SOD (PORCINE) 5,000 UNIT/ML VIAL SC SCH (09:00)
[2019-09-17] MEDS: FOLIC ACID 1 MG TAB PO SCH (09:00)
[2019-09-17] MEDS ORDERED: NOREPINEPHRINE INJ 4MG/4ML 8 MG in DEXTROSE 5% 250ML 250 ML IV SCH (09:00)
--- NOTE | 2019-09-17 09:15 | Diagnostic Imaging Report ---
Chest, portable AP view History: Line placement Comparison: 09/16/2019 IMPRESSION: The cardiac silhouette is stable in size. Left IJ central venous catheter tip terminates in the mid SVC. Bibasilar atelectasis is present. No sizable pleural effusion or pneumothorax. Signed by: Irwin Peterson MD on 09/17/2019 9:11 AM
[2019-09-17] MEDS ORDERED: AMIODARONE HCL 100 ML IV ONE (09:17)
[2019-09-17] MEDS: NOREPINEPHRINE INJ 4MG/4ML 8 MG in DEXTROSE 5% 250ML 250 ML IV SCH (09:42)
[2019-09-17] MEDS ORDERED: HEPARIN SOD (PORCINE) 5,000 UNIT/ML VIAL IV ONE (09:50)
[2019-09-17] MEDS: AMIODARONE HCL 900 MG in DEXTROSE 5 % 500ML BOTTLE 500 ML IV SCH (09:52)
[2019-09-17] MEDS ORDERED: AMIODARONE 900MG 500 ML IV ONE (09:56)
[2019-09-17] MEDS ORDERED: HEPARIN 25,000 UNIT 1,000 UNIT in DEXTROSE 5% 250ML 250 ML IV SCH (10:00)
[2019-09-17] MEDS ORDERED: LORAZEPAM INJ 2 MG/ML VIAL IV ONE (10:00)
--- NOTE | 2019-09-17 10:00 | NUR ---
BP LOW AND HR CONTINUES 130'S DR FISHMAN AT BEDSIDE. NEW LEFT IJ CENTRAL LINE PLACED FOR BP SUPPORT. NEW ORDERS FOR LOADING DOSE OF IV AMIODARONE AND THEN CONTINUOUS DRIP PER DR VANEGAS. LEVOPHED GTT STARTED AFTER LINE PLACEMENT CONFIRMED.
[2019-09-17] MEDS: HEPARIN 25,000 UNIT 1,000 UNIT in DEXTROSE 5% 250ML 250 ML IV SCH (10:08)
--- NOTE | 2019-09-17 11:09 | Operative Report ---
DATE OF PROCEDURE: 09/17/2019 SURGEON: Sae Loja MD PROCEDURE PERFORMED: Central line placement under ultrasound guidance. PREOPERATIVE DIAGNOSIS: Acute renal failure. POSTOPERATIVE DIAGNOSIS: Acute renal failure. ANESTHESIA: Lidocaine 1% for local anesthesia and Ativan 1 mg IV. CONSENT: Consent was obtained from the patient. DESCRIPTION OF PROCEDURE: The patient was placed in a supine position. The left neck was cleaned and prepped sterilely. A full length drape was used. Mask, sterile gloves, and gown were used. An ultrasound machine was used to locate the left internal jugular vein. A 21-gauge needle was used to apply local anesthesia. A 16-gauge needle was then used to cannulate the left internal jugular vein under direct visualization. On the first attempt, the wire did not pass. The left internal jugular vein was cannulated again under direct visualization. The wire passed easily. A dilator was then used and a triple-lumen catheter was placed over the wire by the Seldinger technique. All the ports flushed. COMPLICATIONS: None. ESTIMATED BLOOD LOSS: None. Sae Loja MD LMH/MODL /[id number]
--- NOTE | 2019-09-17 11:34 | Progress Note ---
DATE: 09/17/2019 Cardiology Progress Note SUBJECTIVE: Somnolent after agitation and benzodiazepine administration, status post central venous catheter placement. OBJECTIVE: VITAL SIGNS: Temperature 97.9, heart rate 139, blood pressure 93/50 with systolic in the 70s, respiratory rate 22, and O2 saturation 100% on nasal cannula. BMI 42.8. GENERAL: Chronically ill-appearing, somnolent. NECK: With central venous catheter to left IJ. CHEST: With decreased breath sounds. CARDIOVASCULAR: Regular rate and rhythm. Normal S1 and S2. No S3 or S4. Systolic ejection murmur. Distant heart sounds. ABDOMEN: Soft. Bowel sounds present. EXTREMITIES: With no edema. Warm extremities. TELEMETRY: With paroxysms of atrial fibrillation with rapid ventricular response alternating with PSVT alternating with sinus rhythm and sinus tachycardia. CARDIOVASCULAR MEDICATIONS: Reviewed. Amiodarone IV being initiated today with a slow bolus of 150 mg over 20 minutes, heparin IV being initiated today, Levophed IV being initiated for MAP 65 to 70 and the patient is on a bicarb drip. STUDIES: Reviewed. Sodium 142, potassium 3.9, chloride 110, bicarbonate 18, BUN 82, creatinine 3.3, and glucose 108. White blood cells 10.7, hemoglobin 11.2, and platelets 194. INR 0.9, PT 13.4, and PTT 29.3. AST 27, ALT 63, alkaline phosphatase 103, total bilirubin 0.5. ASSESSMENT AND PLAN: 1. A 74-year-old man is presenting with severe sepsis with septic shock. 2. Diarrhea. 3. Acute renal failure. 4. Metabolic acidosis. 5. Atrial tachyarrhythmia including paroxysmal supraventricular tachycardia and atrial fibrillation. 6. Mild anemia. RECOMMENDATIONS: 1. Amiodarone IV and heparin IV. 2. Levophed for septic shock. 3. Continue bicarb and monitor acid-base status. 4. Renal input appreciated. Ector Clayton MD AFMitzi/MODL /[id number]
--- NOTE | 2019-09-17 13:02 | NUR ---
74 YO MALE HX OF RENAL FAILURE, LOOSE STOOL (C DIFF) AXEL 13 MODERATE PUP STATUS ALTERNATING PRESSUE SURFACE LABS: WBC- 10.77,HGB- 11.2, GLUCOSE -108, HEM A1C - 4.8 BLOOD CULTURE SHOWS NO GROWTH OVA AND PARASITE SCREEN PENDING SKIN ASSESSMENT COMPLETE PATIENT PRESENTS WITH GLUTEAL CREASE DENUDED R/T LOOSE STOOL RECOMMENDATIONS :NURSING TO CONTINUE TO MAINTAIN MODERATE PUP STATUS AND INTERVENTIONS NURSING TO CONTINUE TO MAINTAIN BUTTOCKS AND ALEXSANDER AREA CLEAN AND DRY NURSING TO APPLY CALAZYME BARRIER PASTE TO GLUTEAL CREASE DAILY AND AFTER ALEXSANDER CARE Addendum: 09/17/19 at 1321 by Micheal Sabillon RN Amended: Links added.
--- NOTE | 2019-09-17 14:35 | NUR ---
PT MOTHER ON MED SURG 3, JUST FLEW IN FROM JOB [facility] DAUGHTER IN LAW IS PILI FLORES [phone]
--- NOTE | 2019-09-17 15:46 | Progress Note ---
DATE: 09/17/2019 SUBJECTIVE: The patient required transfer back to the intensive care unit because of atrial fibrillation with a rapid ventricular response. He had a low blood pressure as well. He did not respond to Lopressor and required amiodarone. He continues to receive intravenous bicarbonate. PHYSICAL EXAMINATION: VITAL SIGNS: The patient is afebrile. The blood pressure is now 96/77, on 2 mcg of Levophed. HEENT: Shows no facial swelling or erythema. CARDIAC: Reveals an irregularly irregular rhythm with normal S1, S2. LUNGS: Auscultation of lungs reveals clear breath sounds bilaterally. There is no wheezing. ABDOMEN: Soft, nontender. There is no rebound or guarding. EXTREMITIES: Show no leg edema or calf tenderness. LABORATORY DATA: White blood cell count is 10.7 and hemoglobin is 11.2. The platelet count is 194. The BUN to creatinine ratio is 82:3.9, and the carbon dioxide is 18. IMPRESSION: 1. Atrial fibrillation with rapid ventricular response. 2. Clostridium difficile colitis with sepsis, present on admission. 3. Acute renal failure. 4. History of Crohn disease. 5. Chronic lower back pain. 6. Chronic neck pain. PLAN: 1. Continue intravenous fluids. 2. Continue supplemental bicarbonate. 3. Complete amiodarone loading protocol. 4. Continue antimicrobial therapy for C. diff. 5. Wean patient off Levophed. Sae Loja MD LM/BETHL /[id number]
--- NOTE | 2019-09-17 15:56 | Progress Note ---
DATE: 09/17/2019 CONSULTS: 1. Dr. Gomez with Cardiovascular. 2. Dr. Nicola Light with GI. 3. Dr. Barnes with Nephrology. 4. Dr. Loja with [facility]. CHIEF COMPLAINT: Acute renal failure, diarrhea. SUBJECTIVE: The patient is seen in the ICU. He had an episode of sinus tachycardia with a heart rate in the 130s. Metoprolol IV x1 was given with no improvement. He was then transferred to ICU for further management. He was noted to have an episode of atrial fibrillation. He was started on amiodarone drip, Levophed, and heparin drip. Upon assessment, he is resting with no acute distress. Normal sinus rhythm with a heart rate of 60s. PHYSICAL EXAMINATION: VITAL SIGNS: Temperature 97.5, pulse is 76, respirations 22, blood pressure 86/77, and pulse ox is 100 on 2 L of nasal cannula. GENERAL: No acute distress. HEENT: Normocephalic, atraumatic. CARDIOVASCULAR: Regular rate and rhythm. LUNGS: Mild wheezing and decreased breath sounds. ABDOMEN: Obese and soft. NEUROLOGIC: Alert, lethargic, but was reported to be oriented. MUSCULOSKELETAL: Moves all extremities. SKIN: Dry. LABORATORY DATA: WBC 10.7, hemoglobin is 11.2, hematocrit is 35.1, and platelets 194. Sodium 142, potassium 3.9. BUN is 82, creatinine is 3.9. IMAGING: Chest x-ray, basilar atelectasis is present, no sizable pleural effusion or pneumothorax after line placement. IMPRESSION: 1. Severe sepsis on admission due to diarrhea. Continue on IV antibiotics. Afebrile. 2. Acute renal failure, improving with IV fluid hydration. Creatinine is 3.9 today. Nephrology has been consulted. 3. Hypertension, now hypotensive. He is currently on Levophed. 4. Atrial fibrillation, new onset. Started on amiodarone drip and heparin IV. He was given digoxin IV x1. Continue Tele monitor. In ICU for close monitoring. 5. Chronic neck and back pain. We will treat as needed. 6. History of Crohn disease. Questionable flare. GI is on the case. We will defer to GI. 7. Deep venous thrombosis prophylaxis, on heparin. Dictated by Sofia Peraza, ANP Yiching MD INOCENCIO Fernández/NICK /[id number]
[2019-09-17] MEDS: SODIUM CHLORIDE 0.9% 1000ML 1,000 ML IV SCH (16:20)
--- NOTE | 2019-09-17 17:00 | NUR ---
PTT RESULTED THERAPEUTIC AT 63. HEPARIN GTT UNCHANGED. CHECK PTT IN 6 HRS
--- NOTE | 2019-09-17 18:36 | NUR ---
PATIENT WITH SITTER AT BEDSIDE FOR SAFETY. PATIENT CONFUSED AND ATTEMPTS TO PULL AT LINES AND STATES THAT HE IS GETTING OUT OF BED AND GOING HOME.
[2019-09-18] VITALS (55 sets, daily range): BP systolic 66–146; BP diastolic 37–128
[2019-09-18] MEDS: AMIODARONE HCL 900 MG in DEXTROSE 5 % 500ML BOTTLE 500 ML IV SCH (02:14)
[2019-09-18 05:27] LABS: BASOPHILS % 0.5 % (0.0-1.0); EOSINOPHILS # (AUTO) 0.1 (0.0-0.4); EOSINOPHILS % 0.9 % (0.0-6.0); HEMATOCRIT 30.9 % (38.2-49.6); HEMOGLOBIN 9.7 g/dL (14.0-18.0); LYMPHOCYTES # (AUTO) 1.1 (1.0-3.2); LYMPHOCYTES % 13.7 % (18.0-39.1); MEAN CORPUSCULAR HEMOGLOBIN 33.4 pg (28-32); MEAN CORPUSCULAR HGB CONC 31.4 g/dL (31-35); MEAN CORPUSCULAR VOLUME 106.6 fL (81-99); MONOCYTES % 11.7 % (4.4-11.3); NEUTROPHILS # (AUTO) 5.6 (2.1-6.9); PLATELET COUNT 155 x10e3/uL (140-360); RED CELL DISTRIBUTION WIDTH 15.9 % (11.7-14.4)
[2019-09-18 05:47] LABS: ANION GAP 14.7 mmol/L (8-16); CALCIUM 8.7 mg/dL (8.4-10.2); CREATININE, SERUM 2.72 mg/dL (0.72-1.25); MAGNESIUM 1.4 MG/DL (1.3-2.1); PHOSPHORUS 1.7 MG/DL (2.3-4.7); POTASSIUM 3.7 mmol/L (3.5-5.1)
[2019-09-18] MEDS: SODIUM CHLORIDE 0.9% 1000ML 1,000 ML IV SCH ×2 (06:09→17:22)
[2019-09-18] MEDS: VANCOMYCIN 250MG/5ML ORAL SOLN PO SCH ×3 (06:09→17:22)
[2019-09-18] MEDS ORDERED: HEPARIN 25,000 UNIT DRIP IV ONE (07:00)
--- NOTE | 2019-09-18 07:13 | NUR ---
PT HAD INTERMITTENT CONFUSION OVER NIGHT. HE KEEP SAYING THAT HE WANTS TO KILL HIMSELF. NOTIFIED THE ONCOMING RN. PT STABLE, PTT WITHIN THERAPEUTIC LEVEL NO CHANGES MADE ON THE HEPARIN GTT. PT HAD 5 BMS, SAFETY MAINTAINED REPORT GIVEN TO ONCOMING RN
[2019-09-18] MEDS: HEPARIN 25,000 UNIT 1,000 UNIT in DEXTROSE 5% 250ML 250 ML IV SCH (07:20)
[2019-09-18] MEDS ORDERED: SODIUM PHOSPHATE 3 MMOL/ML INJ IV ONE (07:45)
[2019-09-18] MEDS ORDERED: NOREPINEPHRINE 8 MG/D5W 250 ML 0 ML ONE (08:13)
[2019-09-18] MEDS ORDERED: MAGNESIUM SULFATE 2GM/50ML 50 ML IV ONE (08:15)
[2019-09-18] MEDS: FOLIC ACID 1 MG TAB PO SCH (08:32)
--- NOTE | 2019-09-18 09:00 | NUR ---
PATIENT ALERT AND ORIENTED. AMIODARONE, HEPARIN, LEVOPHED AT 2 MCG/MIN. PATIENT WITH GOOD APPETITE. MCFARLAND DRAINING TO GRAVITY.
[2019-09-18] MEDS: NOREPINEPHRINE INJ 4MG/4ML 8 MG in DEXTROSE 5% 250ML 250 ML IV SCH (09:45)
[2019-09-18] MEDS ORDERED: SODIUM PHOSPHATE 30 MMOL in SODIUM CHLORIDE 0.9% 250ML 250 ML IV ONE (10:00)
--- NOTE | 2019-09-18 10:27 | NUR ---
PATIENT INQUIRING ABOUT BELONGINGS THAT INCLUDE A WALLET. [id number] STATED THAT SHE TOOK BELONGINGS HOME.
--- NOTE | 2019-09-18 11:20 | NUR ---
AMIODARONE IV PROTOCOL COMPLETE. PO AMIODARONE ORDERED
--- NOTE | 2019-09-18 12:32 | Progress Note ---
DATE: 09/18/2019 CONSULTANTS: 1. Dr. Gomez with Cardiovascular. 2. Dr. Light with GI. 3. Dr. Barnes with Nephrology. 4. Dr. Loja with [facility]. CHIEF COMPLAINT: Acute renal failure due to diarrhea. SUBJECTIVE: The patient is much more alert, awake, and oriented x3 today. He remains in ICU. Heart rate has been stable in the 70s, normal sinus rhythm. Continue with amiodarone and heparin drip. [id number] at the bedside. Discussed plan of care. PHYSICAL EXAMINATION: VITAL SIGNS: Temperature 98.5, pulse is 71, respirations 20, blood pressure 103/45, and pulse ox 98% on 2 L of oxygen. GENERAL: No acute distress. HEENT: Normocephalic and atraumatic. CARDIOVASCULAR: Regular rate and rhythm. LUNGS: With wheezing and decreased breath sounds. ABDOMEN: Obese and soft. Nontender. NEUROLOGIC: Alert, awake, and oriented x3. MUSCULOSKELETAL: Moves all extremities. SKIN: Dry. LABORATORY DATA: WBC 8.15, hemoglobin 9.7, hematocrit 30.9, and platelet 155. Sodium 140, potassium 3.7, BUN is 67, creatinine is 2.72, and phosphorus 1.7. IMPRESSION AND PLAN: 1. Severe sepsis, on admission due to diarrhea. Continue IV antibiotics. Vital signs stable and afebrile. 2. Acute renal failure, improving with IV fluid hydration. Creatinine is 2.72 today. Nephrology on the case. 3. Hypertension, now hypotensive. We will continue to monitor closely on Levophed. 4. Atrial fibrillation, new onset. Continue amiodarone drip and heparin IV. Currently normal sinus rhythm. Cardiology on the case. 5. Chronic back pain. We will treat as needed. 6. History of Crohn disease. GI on the case. 7. History of sleep apnea. CPAP at night. 8. Morbid obesity. 9. Deep vein thrombosis prophylaxis, on heparin. Dictated by TAYA Barragan Cam Gardner MD MY/MODL /[id number]
[2019-09-18] MEDS: AMIODARONE HCL 200 MG TAB PO SCH ×2 (13:21→17:18)
--- NOTE | 2019-09-18 14:05 | Diagnostic Imaging Report ---
EXAM: US RENAL RETROPERITONEAL COMP DATE: 09/18/2019 12:00 AM INDICATION: Acute renal failure COMPARISON: CT from 09/14/2019 FINDINGS: Please note the examination is limited by the patient's body habitus The right kidney is normal in size measuring 10.9 x 4.9 x 5.4 cm with cortical thickness of 1.5 cm. Cortical echogenicity is within normal limits. There is no evidence for solid renal mass, hydronephrosis, or shadowing calculi. The left kidney is normal in size measuring 10.5 x 6.5 x 4.2 cm with cortical thickness of 2.1 cm. Cortical echogenicity is within normal limits. There is no evidence for solid renal mass, hydronephrosis, or shadowing calculi. The urinary bladder is collapsed around a Carlson catheter. IMPRESSION: Unremarkable renal ultrasound examination. Signed by: Dr. Balta Sánchez MD on 09/18/2019 2:02 PM
[2019-09-18] MEDS ORDERED: AMIODARONE 900MG 500 ML IV SCH (15:00)
--- NOTE | 2019-09-18 15:58 | Progress Note ---
DATE: 09/18/2019 SUBJECTIVE: The patient feels better. The patient has less dyspnea and less chest pain. He is not confused. He is off the amiodarone drip. The Levophed has been weaned off. PHYSICAL EXAMINATION: VITAL SIGNS: Stable. CARDIAC: Reveals regular rate and rhythm with a normal S1 and S2. There are no murmurs or rubs. LUNGS: Auscultation of lungs reveals clear breath sounds bilaterally. There is no wheezing. ABDOMEN: Soft and nontender. There is no rebound or guarding. EXTREMITIES: Shows no leg edema or calf tenderness. There is no cyanosis or clubbing. SKIN: Shows no rashes. NEUROLOGICAL: Shows no focal abnormalities. IMPRESSION: 1. Clostridium difficile colitis with sepsis, present on admission. 2. Acute renal failure. 3. Atrial fibrillation with rapid ventricular response. 4. History of Crohn disease. 5. Chronic neck pain. PLAN: 1. Continue intravenous fluids. 2. Monitor renal function. 3. Wean off bicarbonate. 4. Continue current cardiac regimen. Sae Loja MD [facility]/MODL /[id number]
[2019-09-19] VITALS (19 sets, daily range): BP systolic 89–137; BP diastolic 48–108
[2019-09-19] MEDS: VANCOMYCIN 250MG/5ML ORAL SOLN PO SCH ×4 (00:03→17:43)
--- NOTE | 2019-09-19 00:56 | Progress Note ---
DATE: 09/18/2019 Cardiology Progress Note. SUBJECTIVE: Anxious, however, denies any chest pain or shortness of breath. OBJECTIVE: On telemetry, episodes of paroxysmal supraventricular tachycardia, episodes of paroxysmal atrial fibrillation, episodes of sinus rhythm and sinus tachycardia observed . VITAL SIGNS: Temperature 98.5, heart rate 71, blood pressure 103/45, respiratory rate 20, O2 saturation 98%. BMI 43.1. GENERAL: In no acute distress. Alert. NECK: JVD elevated. Catheter in place. CHEST: Decreased breath sounds. CARDIOVASCULAR: Irregular rate and rhythm. Normal S1, S2. ABDOMEN: Soft. Bowel sounds positive. EXTREMITIES: Trace edema. CARDIOVASCULAR MEDICATIONS: Reviewed. Adenosine p.r.n., amiodarone IV drip, metoprolol tartrate 5 mg q.8 hours p.r.n. Levophed as needed p.r.n., currently off and heparin IV. STUDIES: Sodium 140, potassium 3.7, chloride 105, bicarbonate 24, BUN 67, creatinine 2.72, glucose 98. White blood cells 8.1, hemoglobin 9.7, platelets 155. PT 13.4, PTT 56.4, INR 0.97. AST 27, ALT 63, alkaline phosphatase 103, total bilirubin 0.5. ASSESSMENT AND PLAN: 1. A 74-year-old man presents with acute renal failure. 2. Severe sepsis with septic shock. 3. Encephalopathy. 4. Paroxysmal atrial fibrillation. 5. Paroxysmal atrial tachycardia. 6. Anemia. Recommend continue current cardiovascular medications. 7. Once renal function stabilizes, consider transitioning to oral anticoagulation prior to discharge. Ector Clayton MD AFMitzi/MODL /[id number]
[2019-09-19 05:15] LABS: BASOPHILS # (AUTO) 0.1 (0.0-0.1); BASOPHILS % 0.9 % (0.0-1.0); EOSINOPHILS # (AUTO) 0.1 (0.0-0.4); HEMATOCRIT 33.1 % (38.2-49.6); HEMOGLOBIN 10.2 g/dL (14.0-18.0); LYMPHOCYTES # (AUTO) 1.1 (1.0-3.2); LYMPHOCYTES % 14.3 % (18.0-39.1); MEAN CORPUSCULAR HEMOGLOBIN 33.3 pg (28-32); MEAN CORPUSCULAR HGB CONC 30.8 g/dL (31-35); MEAN CORPUSCULAR VOLUME 108.2 fL (81-99); MONOCYTES % 12.4 % (4.4-11.3); NEUTROPHILS % 64.6 % (38.7-80.0); PLATELET COUNT 144 x10e3/uL (140-360); RED BLOOD COUNT 3.06 x10e6/uL (4.3-5.7); RED CELL DISTRIBUTION WIDTH 15.6 % (11.7-14.4)
[2019-09-19 05:35] LABS: ANION GAP 16.7 mmol/L (8-16); CALCIUM 8.6 mg/dL (8.4-10.2); CREATININE, SERUM 1.82 mg/dL (0.72-1.25); MAGNESIUM 1.6 MG/DL (1.3-2.1); POTASSIUM 3.7 mmol/L (3.5-5.1)
[2019-09-19] MEDS: SODIUM CHLORIDE 0.9% 1000ML 1,000 ML IV SCH ×2 (08:38→20:35)
[2019-09-19] MEDS: AMIODARONE HCL 200 MG TAB PO SCH ×2 (08:38→16:30)
[2019-09-19] MEDS: FOLIC ACID 1 MG TAB PO SCH (08:38)
[2019-09-19] MEDS: NOREPINEPHRINE INJ 4MG/4ML 8 MG in DEXTROSE 5% 250ML 250 ML IV SCH (08:38)
[2019-09-19] MEDS: HEPARIN 25,000 UNIT 1,000 UNIT in DEXTROSE 5% 250ML 250 ML IV SCH (10:06)
--- NOTE | 2019-09-19 12:05 | Progress Note ---
DATE: 09/19/2019 CONSULTANTS: 1. Dr. Gomez with cardiovascular. 2. Dr. Light with GI. 3. Dr. Barnes with Nephrology. 4. Dr. Loja with Intensive Care. CHIEF COMPLAINT: Diarrhea and acute renal failure. SUBJECTIVE: The patient is alert, awake, and oriented x3, remains in the ICU. He had increased heart rate in the 130s to 140s overnight and early this morning. He remains on amiodarone and heparin drip. Vital signs stable. Discussed plan with nurse and the patient at the bedside. PHYSICAL EXAMINATION: VITAL SIGNS: Temperature 98.8, pulse is 77, respirations 20, blood pressure 125/71, and pulse ox 94% on 2 L of oxygen. GENERAL: No acute distress. HEENT: Normocephalic and atraumatic. CARDIOVASCULAR: Irregular rate controlled. LUNGS: Decreased breath sounds. ABDOMEN: Soft and nontender. NEUROLOGIC: Alert, awake, and oriented x3. MUSCULOSKELETAL: Moves all extremities. SKIN: Dry. LABORATORY DATA: WBC 7.68, hemoglobin is 10.2, hematocrit is 33.1, and platelet 144. Sodium 142, potassium 3.7, BUN is 47, creatinine is 1.82, estimated GFR is 37, calcium is 8.6, phosphorus is 2.0, and magnesium 1.6. IMPRESSION AND PLAN: 1. Severe sepsis, on admission due to diarrhea, Clostridium difficile. Continue vancomycin p.o. He remains afebrile. 2. Acute renal failure. Now improving with IV fluid hydration. Creatinine 1.8 today. Nephrology on the case. 3. Hypertension. Now stable. We will continue to monitor closely. 4. Atrial fibrillation, new onset. Continue amiodarone drip and heparin IV. Had a run of ventricular tachycardia this a.m. Cardiovascular on the case. 5. Anemia. Likely chronic. Hemoglobin 10.2. We will continue to monitor closely. 6. Chronic back pain. We will continue to treat pain as needed. 7. History of Crohn disease. Here with Clostridium difficile positive. Continue vancomycin p.o. GI on the case. 8. History of sleep apnea. CPAP at night. 9. Morbid obesity. 10. Deep vein thrombosis prophylaxis, on heparin IV. Dictated by TAYA Barragan Yiching MD [facility] Fernández/NICK /[id number]
--- NOTE | 2019-09-19 13:01 | Progress Note ---
DATE: 09/19/2019 Cardiology Progress Note SUBJECTIVE: Denies chest pain or shortness of breath. Has intermittent episodes of palpitation. On telemetry, currently in sinus rhythm, however, overnight had episode of paroxysmal atrial fibrillation. OBJECTIVE: VITAL SIGNS: Temperature 98.8, heart rate 129, most recent heart rate 80; blood pressure 136/79, respiratory rate 18, and O2 saturation 98%. BMI 43.5. GENERAL: In no acute distress, alert. NECK: No JVD. CHEST: Clear to auscultation. CARDIOVASCULAR: Regular rate and rhythm. Normal S1, S2. No S3 or S4. ABDOMEN: Soft. Bowel sounds positive. EXTREMITIES: Trace edema. CARDIOVASCULAR MEDICATIONS: Reviewed. Amiodarone 400 mg b.i.d., metoprolol tartrate 5 mg IV q.8 hours, heparin IV drip. STUDIES: Sodium 142, potassium 3.7, chloride 107, bicarbonate 22, BUN 47, creatinine 8.2, glucose 86. White blood cells 7.6, hemoglobin 10.2, and platelets 144. PT 13.4, INR 0.97, PTT 59.8. AST 27, ALT 63, alkaline phosphatase 103, total bilirubin 0.5. ASSESSMENT AND PLAN: 1. A 74-year-old man presents with paroxysmal atrial fibrillation, paroxysmal supraventricular tachycardia. 2. Acute renal failure. 3. Severe sepsis with septic shock. RECOMMEND: Continue current cardiovascular medications and consider transition to p.o. metoprolol and upon discharge p.o. Eliquis once no additional procedures planned. Creatinine continues to improve today at 1.8. Ector Clayton MD AFM[facility]i/MODL /[id number]
[2019-09-19] MEDS ORDERED: METOPROLOL TARTRATE 25 MG TAB PO ONE (13:30)
--- NOTE | 2019-09-19 15:30 | NUR ---
Nutrition Screen Note RD Recommendation for Physician: -Continue current diet Plan of Care: RD following, monitoring for tolerance and adequacy Nutrition reason for involvement: Length of stay Primary Diagnose(s): acute renal failure, diarrhea, and septic shock PMH: Crohns disease, HTN, diabetes, chronic neck pain, chronic back pain, chronic renal insufficiency Ht: 69 in Wt:295 lb BMI: 43.6 kg/m2 IBW:[address] Assessment: (09/19/19) Chart reviewed. Labs and meds reviewed. Pt is a 74 year old male admitted with acute renal failure, diarrhea, and septic shock. Pt stated he has a good appetite and is eating >50% of meals. Per documentation, pt consumed 50-75% of meals on 09/18. Pt is unsure of any recent weight changes and stated he usually weighs 280 lbs. Pt has weight ranging from 283-295 lbs during this admission. No N/V/D/C or chewing/swallowing issues noted at this time. Will continue to monitor. Current Diet: GI soft diet Malnutrition Evaluation (09/19/19) The patient does not meet criteria for a specified degree of malnutrition at this time. Will re-evaluate at follow-up as appropriate. Diet Education Needs Assessment: Pt was not interested in diet education materials at time of visit. Nutrition Care Level: moderate Signed: Chana Horne, RD, LD
--- NOTE | 2019-09-19 16:02 | Progress Note ---
DATE: 09/19/2019 SUBJECTIVE: The patient feels better. He is not having any pain or fevers. He is back in normal sinus rhythm and is off the amiodarone drip. He is off the bicarb drip. The Levophed has been weaned off. PHYSICAL EXAMINATION: VITAL SIGNS: The patient is afebrile. The vital signs are stable. HEENT: Shows no facial swelling or erythema. CARDIAC: Reveals regular rate and rhythm with normal S1, S2. LUNGS: Auscultation of lungs reveals clear breath sounds bilaterally. There is no wheezing. ABDOMEN: Soft, nontender. There is no rebound or guarding. EXTREMITIES: Show no leg edema or calf tenderness. There is no cyanosis or clubbing. SKIN: Shows no rashes. NEUROLOGIC: Shows no focal abnormalities. IMPRESSION: 1. Acute renal failure. 2. Atrial fibrillation with rapid ventricular response. 3. Clostridium difficile colitis. 4. History of Crohn disease. PLAN: 1. Transfer out of ICU. 2. Continue to monitor renal function and electrolytes. 3. Continue intravenous fluids. Sae Loja MD [facility]/MODL /[id number]
[2019-09-19] MEDS: METOPROLOL TARTRATE 25 MG TAB PO SCH (20:08)
[2019-09-19] MEDS: APIXABAN 5 MG TABLET PO SCH (20:35)
--- NOTE | 2019-09-19 21:10 | NUR ---
RECEIVED PATIENT TRANSFER FROM ICU. CONTACT ISOLATION PRECAUTIONS IN PLACE. PATIENT A&OX3. NO S&S OF DISTRESS NOTED. O2@ 2L VIA NC. NS RUNNING AT 75ML/HR TO L IJ TRIPLE LUMEN. R HAND 22G AND L HAND 20G IVS NOTED TO BE LEAKING, REMOVED AT THIS TIME, CATHETER TIPS INTACT, PRESSURE DRESSINGS APPLIED. PATIENT STATED HE KNOWS WHEN HE HAS A BOWEL MOVEMENT AND WILL INFORM US SO HE CAN BE PROMPTLY CLEANED. PATIENT HAS NOT VOIDED YET, D/T VOID AT MIDNIGHT, 6 HOURS AFTER REMOVAL OF [place], URINAL PROVIDED. LUNG SOUNDS DIMINISHED. BOWEL SOUNDS ACTIVE. PEDAL PULSES PALPABLE. TELE MONITOR ON, SR AT 72 BPM. BED LOCKED IN LOWEST POSITION, SIDE RAILS UPX2, CALL LIGHT IN REACH.
--- NOTE | 2019-09-19 23:45 | NUR ---
PATIENT VOIDED AND HAD BM AT THIS TIME.
[2019-09-20] VITALS (10 sets, daily range): BP systolic 115–131; BP diastolic 55–61
[2019-09-20] MEDS: VANCOMYCIN 250MG/5ML ORAL SOLN PO SCH ×5 (00:16→23:01)
--- NOTE | 2019-09-20 01:10 | NUR ---
PATIENT REFUSING Q2 TURNS AT THIS TIME, STATING HE IS VERY COMFORTABLE RIGHT NOW. WILL CONTINUE TO ATTEMPT TO ASSIST WITH TURNING WITH [facility].
[2019-09-20 09:07] LABS: ALBUMIN 2.7 g/dL (3.5-5.0); ALBUMIN/GLOBULIN RATIO 0.9 (0.8-2.0); CALCIUM 8.4 mg/dL (8.4-10.2); CREATININE, SERUM 1.7 mg/dL (0.72-1.25)
[2019-09-20 09:09] LABS: BASOPHILS # (AUTO) 0.1 (0.0-0.1); BASOPHILS % 0.9 % (0.0-1.0); EOSINOPHILS # (AUTO) 0.1 (0.0-0.4); EOSINOPHILS % 1.8 % (0.0-6.0); HEMATOCRIT 32.9 % (38.2-49.6); HEMOGLOBIN 10.1 g/dL (14.0-18.0); LYMPHOCYTES # (AUTO) 1.2 (1.0-3.2); LYMPHOCYTES % 16.2 % (18.0-39.1); MEAN CORPUSCULAR HGB CONC 30.7 g/dL (31-35); MEAN CORPUSCULAR VOLUME 107.5 fL (81-99); MONOCYTES # (AUTO) 0.8 (0.2-0.8); MONOCYTES % 10.5 % (4.4-11.3); NEUTROPHILS # (AUTO) 4.6 (2.1-6.9); NEUTROPHILS % 61.8 % (38.7-80.0); PLATELET COUNT 138 x10e3/uL (140-360); RED BLOOD COUNT 3.06 x10e6/uL (4.3-5.7); RED CELL DISTRIBUTION WIDTH 15.9 % (11.7-14.4)
[2019-09-20] MEDS: APIXABAN 5 MG TABLET PO SCH ×2 (09:21→21:13)
[2019-09-20] MEDS: AMIODARONE HCL 200 MG TAB PO SCH ×2 (09:21→17:56)
[2019-09-20] MEDS: FOLIC ACID 1 MG TAB PO SCH (09:21)
[2019-09-20] MEDS: METOPROLOL TARTRATE 25 MG TAB PO SCH ×2 (09:21→21:13)
[2019-09-20] MEDS: SODIUM CHLORIDE 0.9% 1000ML 1,000 ML IV SCH ×2 (09:22→23:08)
--- NOTE | 2019-09-20 10:52 | Progress Note ---
DATE: 09/20/2019 SUBJECTIVE: The patient was transferred out of the intensive care unit yesterday. Carlson catheter was removed. He feels better overall, but is still weak. PHYSICAL EXAMINATION: VITAL SIGNS: The blood pressure is 116/55 and the saturation is 99%. The pulse is 71. HEENT: Shows no facial swelling or erythema. CARDIAC: Reveals regular rate and rhythm with a normal S1 and S2. There are no murmurs or rubs. LUNGS: Auscultation of lungs reveals rhonchorous breath sounds bilaterally. There is no wheezing. ABDOMEN: Soft and nontender. There is no rebound or guarding. EXTREMITIES: Shows no leg edema or calf tenderness. IMPRESSION: 1. Clostridium difficile colitis. 2. Acute renal failure. 3. Atrial fibrillation. 4. History of Crohn disease. PLAN: 1. Continue treatment for C. difficile. 2. Repeat electrolytes, BUN and creatinine. 3. Continue physical therapy. MD DANICA Murrell/NICK /[id number]
--- NOTE | 2019-09-20 12:43 | Progress Note ---
DATE: 09/20/2019 CONSULTANTS: 1. Dr. Gomez with Cardiology. 2. Dr. Light with GI. 3. Dr. Barnes with Nephrology. 4. Dr. Loja with Intensive Care. CHIEF COMPLAINT: Diarrhea and irregular heart rhythm. SUBJECTIVE: The patient is out of ICU, resting in bed with no acute distress. Overnight, heart rate increase over 100, but denies any chest pain, shortness of breath, or palpitations. Diarrhea is improving per the patient. Reports once more physical therapy. PHYSICAL EXAMINATION: VITAL SIGNS: Temperature 97.0, pulse is 71, respirations 20, blood pressure is 116/55, pulse ox is 99% on 2 L of oxygen. GENERAL: No acute distress. HEENT: Normocephalic and atraumatic. CARDIOVASCULAR: Regular rate and rhythm. LUNGS: Decreased breath sounds. ABDOMEN: Soft, nontender, and obese. NEUROLOGIC: Alert, awake, and oriented x3. MUSCULOSKELETAL: Moves all extremities. SKIN: Dry. LABORATORY DATA: WBC 7.4, hemoglobin 10.1, hematocrit 32.9, and platelet is 138. Sodium 140, potassium 4.0, carbon dioxide 21, BUN is 43, creatinine 1.7, and estimated GFR is 40. AST 38, ALT 58, and total bilirubin 0.4. IMPRESSION AND PLAN: 1. Severe sepsis, on admission due to diarrhea related to Clostridium difficile. Continue vancomycin p.o. IV fluids. Diarrhea improving. 2. Acute renal failure. Now improving with IV fluid hydration. Creatinine is 1.7. Nephrology on the case. 3. Hypertension, now stable. We will continue to monitor closely. Continue beta blockers. 4. Atrial fibrillation, no new onset. Amiodarone is changed to p.o. 400 mg b.i.d., metoprolol 12.5, and Eliquis has been started for cerebrovascular accident prophylaxis. IV heparin has been discontinued. Cardiovascular on the case. 5. Anemia, likely chronic. Hemoglobin is 10.2. We will continue to monitor closely. 6. Chronic back pain. Pain control as needed. 7. History of Crohn disease. Here with Clostridium difficile positive. Continue p.o. vancomycin and defer to GI. 8. History of sleep apnea. Continue CPAP at night. 9. Morbid obesity. 10. Debility. PT to evaluate and treat. 11. Deep vein thrombosis prophylaxis. Currently on Eliquis. Dictated by Sofia Peraza, ANP MD [facility] Rust/NICK /[id number]
--- NOTE | 2019-09-20 19:20 | NUR ---
RECEIVED PATIENT. PATIENT IS AAOX3, PATIENT IS RESTING IN BED. RESPIRATIONS EVEN AND UNLABORED. NO ACUTE DISTRESS NOTED AT THIS TIME. TELE IN PLACE. FAMILY AT BED SIDE. BUE BRUISES NOTED. CALL LIGHT WITHIN REACH. INSTRUCT TO CALL FOR ASSISTANCE. BED LOW/LOCKED. SIDE RAILS UPX2. CONTINUE TO MONITOR CLOSELY.
--- NOTE | 2019-09-20 19:25 | Progress Note ---
DATE: 09/20/2019 Cardiology Progress Note SUBJECTIVE: Denies any chest pain or shortness of breath. He is weak, deconditioned. OBJECTIVE: VITAL SIGNS: Temperature 98.7, heart rate 67, blood pressure 131/61, respiratory rate 20, and O2 saturation 97%. BMI 43.5. GENERAL: No acute distress. Alert. NECK: No JVD. CHEST: Clear to auscultation. CARDIOVASCULAR: Regular rate and rhythm. Normal S1 and S2. No S3 or S4. ABDOMEN: Soft. Bowel sounds positive. EXTREMITIES: Trace edema. Warm distal extremities. CARDIOVASCULAR MEDICATIONS: Reviewed. Eliquis 5 mg every 12 hours, metoprolol tartrate 12.5 mg every 12 hours, and amiodarone 400 mg b.i.d. STUDIES: Reviewed. Sodium 140, potassium 4, chloride 108, bicarbonate 21, BUN 43, creatinine 1.7, and glucose 103. White blood cell 7.4, hemoglobin 10.1, and platelets 138. PT 13.4, PTT 59.8, and INR 0.97. AST 38, ALT 58, alkaline phosphatase 88, and total bilirubin 0.4. ASSESSMENT AND PLAN: 1. A 74-year-old man presents with acute renal failure, severe sepsis with septic shock, hypertension, diarrhea, paroxysmal supraventricular tachycardia, paroxysmal atrial fibrillation, and anemia. 2. Deconditioning. RECOMMENDATIONS: 1. Continue Eliquis for thromboembolic risk prevention and monitor H and H. 2. Continue rhythm control strategy with amiodarone to maintain in sinus rhythm and in addition of beta-donald therapy. 3. Renal function continues to improve. Continue to monitor. 4. May benefit from rehab evaluation. MD ROCHELLE Marsh/NICK /[id number]
[2019-09-20] MEDS ORDERED: SODIUM CHLORIDE 0.9% 250ML 500 ML IV PRN (22:00)
[2019-09-20] MEDS ORDERED: HEPARIN SOD (PORCINE) 1000 UNIT/ML SDV IV PRN (22:00)
[2019-09-20] MEDS ORDERED: SODIUM CHLORIDE 0.9% 1000ML 2,000 ML IV PRN (22:00)
[2019-09-20] MEDS ORDERED: MANNITOL 25% 12.5GM/50 ML VIAL IV PRN (22:00)
[2019-09-20] MEDS ORDERED: ALBUMIN 25% 12.5GM 0.25 GM/ML BTL IV PRN (22:00)
[2019-09-21] VITALS (8 sets, daily range): BP systolic 118–138; BP diastolic 51–64
--- NOTE | 2019-09-21 04:05 | NUR ---
COMPLETE CENTRAL LINE DRESSING CHANGE
[2019-09-21] MEDS: VANCOMYCIN 250MG/5ML ORAL SOLN PO SCH ×4 (05:17→23:48)
[2019-09-21 05:31] LABS: BASOPHILS # (AUTO) 0.1 (0.0-0.1); EOSINOPHILS # (AUTO) 0.1 (0.0-0.4); EOSINOPHILS % 1.6 % (0.0-6.0); HEMATOCRIT 30.2 % (38.2-49.6); HEMOGLOBIN 9.3 g/dL (14.0-18.0); LYMPHOCYTES % 16.5 % (18.0-39.1); MEAN CORPUSCULAR HEMOGLOBIN 33.2 pg (28-32); MEAN CORPUSCULAR HGB CONC 30.8 g/dL (31-35); MEAN CORPUSCULAR VOLUME 107.9 fL (81-99); MONOCYTES # (AUTO) 0.8 (0.2-0.8); NEUTROPHILS # (AUTO) 3.7 (2.1-6.9); NEUTROPHILS % 59.7 % (38.7-80.0); PLATELET COUNT 137 x10e3/uL (140-360); RED CELL DISTRIBUTION WIDTH 15.8 % (11.7-14.4)
[2019-09-21 05:49] LABS: ANION GAP 15.1 mmol/L (8-16); CALCIUM 8.4 mg/dL (8.4-10.2); CREATININE, SERUM 1.41 mg/dL (0.72-1.25); POTASSIUM 4.1 mmol/L (3.5-5.1)
--- NOTE | 2019-09-21 07:13 | NUR ---
Received patient lying in bed with eyes closed. Respiration even and unlabored without Sob. Call light in reach.
[2019-09-21] MEDS ORDERED: ZOLPIDEM TARTRATE 10 MG TAB PO PRN (07:30)
[2019-09-21] MEDS: AMIODARONE HCL 200 MG TAB PO SCH ×2 (09:32→18:53)
[2019-09-21] MEDS: APIXABAN 5 MG TABLET PO SCH ×2 (09:32→20:41)
[2019-09-21] MEDS: FOLIC ACID 1 MG TAB PO SCH (09:32)
[2019-09-21] MEDS: METOPROLOL TARTRATE 25 MG TAB PO SCH ×2 (09:33→20:31)
--- NOTE | 2019-09-21 10:14 | Progress Note ---
DATE: 09/21/2019 Pulmonary Critical Care Progress Note. SUBJECTIVE: The patient feels better overall. He has less diarrhea. He is less fatigued. He complains of difficulty sleeping. OBJECTIVE: VITAL SIGNS: Stable. HEENT: Shows no facial swelling or erythema. CARDIAC: Reveals regular rate and rhythm with normal S1, S2. LUNGS: Auscultation of lungs shows clear breath sounds bilaterally. There is no wheezing. ABDOMEN: Soft and nontender. There is no rebound or guarding. EXTREMITIES: Show no leg edema or calf tenderness. ASSESSMENT: 1. C difficile colitis. 2. Acute renal failure that is improving. 3. Atrial fibrillation. 4. Anemia secondary to chronic blood loss. 5. Crohn disease. 6. Obstructive sleep apnea. PLAN: 1. Continue treatment for C diff. 2. CPAP at night. 3. Continue IV fluids and monitoring of creatinine. MD DANICA Murrell/NICK /[id number]
--- NOTE | 2019-09-21 11:39 | Progress Note ---
DATE: 09/21/2019 Cardiology Progress Note SUBJECTIVE: Denies any chest pain or shortness of breath. OBJECTIVE: VITAL SIGNS: Temperature 96.4, heart rate 64, blood pressure 138/63, respiratory rate 20, O2 saturation 96%, BMI 44. GENERAL: In no acute distress, alert. NECK: No JVD. CHEST: Clear to auscultation. CARDIOVASCULAR: Regular rate and rhythm. Normal S1, S2. ABDOMEN: Soft. Bowel sounds positive. EXTREMITIES: Trace edema. CARDIOVASCULAR MEDICATIONS: Reviewed. Eliquis 5 mg every 12 hours, metoprolol tartrate 12.5 mg every 12 hours, amiodarone 400 mg b.i.d. LABORATORY STUDIES: Reviewed. Creatinine 1.4, potassium 4.1, bicarbonate 21, hemoglobin 9.3, platelets 137, white blood cell 6.2. INR 0.9, PT 13.4, PTT 59.8. AST 38, ALT 58, alkaline phosphatase 88. ASSESSMENT: 1. A 74-year-old man with paroxysmal atrial fibrillation, paroxysmal supraventricular tachycardia. 2. Acute diastolic heart failure. 3. Hypotension. 4. Acute renal failure requiring temporary dialysis. 5. Anemia. 6. Morbid obesity. 7. Deconditioning. RECOMMENDATIONS: Continue current cardiovascular medications. Plan upon discharge decrease amiodarone to 400 mg daily. MD ROCHELLE Marsh/NICK /[id number]
[2019-09-21] MEDS: SODIUM CHLORIDE 0.9% 1000ML 1,000 ML IV SCH (12:37)
[2019-09-21 13:21] LABS: EOSINOPHILS % (MANUAL) 3 % (0-7); LYMPHOCYTES % (MANUAL) 23 % (19-48); MONOCYTES % (MANUAL) 7 % (3.4-9.0); MYELOCYTES % (MANUAL) 2 % (0-0); NEUTROPHILS % (MANUAL) 64 % (40-74); NUCLEATED RED BLOOD CELLS 1
[2019-09-21 13:22] LABS: PLATELET ESTIMATE SLIGHTLY DECREASED; PLATELET MORPHOLOGY COMMENT RARE EDTA CLUMPING; RBC MORPHOLOGY COMMENT NORMAL
[2019-09-21 15:55] LABS: % IRON SATURATION 36 % (15-50); IRON 53 ug/dL (65-175); TOTAL IRON BINDING CAPACITY 146 ug/dL (261-478); TRANSFERRIN 104 mg/dL (174-364)
--- NOTE | 2019-09-21 16:22 | NUR ---
SPOKE WITH PATIENT ABOUT SNF ORDER, GAVE IN NETWORK OPTIONS OF [facility], [facility], [facility], [facility]. PT STATES HE DOES NOT WANT TO GO TO ANY OF THEM. HE WANTS TO GO TO [facility] WHERE HIS MOTHER IS AND PAY FRAUSTO. SIGNATURE OBTAINED FOR [facility], [facility] TO [phone]
--- NOTE | 2019-09-21 16:57 | NUR ---
CALLED FACILITY STATES CLINICALS STILL COMING ACROSS FAX, WILL NOT BE ABLE TO PROCESS UNTIL TUESDAY. WILL NEED TO SEND ANY UPDATE FROM NOW UNTIL TUESDAY TO [phone]. RTF AND PASRR ARE COMPLETED AND ON PACKET AT [facility].
--- NOTE | 2019-09-21 17:32 | Progress Note ---
DATE: 09/21/2019 CONSULTANTS: 1. Dr. Gomez with Cardiology. 2. Dr. Light with GI. 3. Dr. Barnes with Nephrology. 4. Dr. Loja with intensive care. CHIEF COMPLAINT: Diarrhea and irregular heart rhythm. SUBJECTIVE: The patient seen in the room, resting with no acute distress. He reports walking with physical therapy this morning, but feels like he is debilitated. PT also recommends SNF placement. OBJECTIVE: VITAL SIGNS: Temperature is 96.2, pulse is 67, blood pressure 132/60, and pulse ox is 97% on 2 L of oxygen. GENERAL: No acute distress. HEENT: Normocephalic and atraumatic. CARDIOVASCULAR: Regular rate and rhythm. LUNGS: Decreased breath sounds. ABDOMEN: Soft and nontender. Obese. NEUROLOGIC: Alert, awake, and oriented x3. MUSCULOSKELETAL: Moves all extremities. SKIN: Dry. LABORATORY DATA: Hemoglobin 9.3, hematocrit 30.2, and platelets 137. Sodium 142, potassium is 4.1, carbon dioxide is 21, BUN is 36, and creatinine is 1.41. Estimated GFR is 49. ASSESSMENT AND PLAN: 1. Severe sepsis on admission due to C diff. Continue vancomycin p.o. IV fluids. 2. Acute renal failure. Now improving with IV fluid hydration. Creatinine is 1.4 today. Nephrology on case. 3. Hypertension, now stable. We will continue with beta-blockers and monitor closely. 4. Atrial fibrillation new onset. Continue on amiodarone 400 mg p.o. b.i.d., metoprolol, and Eliquis for cerebrovascular accident prophylaxis. 5. Anemia, likely chronic. Hemoglobin is 9.3. We will continue to monitor closely. We will check iron studies. 6. History of chronic disease. GI on the case. 7. History of sleep apnea. Continue CPAP at night. 8. Morbid obesity. 9. Debility. PT to evaluate and treat. Recommend SNF placement. 10. Chronic back pain. We will start lidocaine patch. 11. Deep vein thrombosis prophylaxis. Currently on Eliquis. Dictated by TAYA Barragan Rohiniching Basil Gardner MD MY/MODL /[id number]
[2019-09-21] MEDS: LIDOCAINE 4% PATCH TP SCH (18:53)
--- NOTE | 2019-09-21 19:05 | NUR ---
Report given to table games shift manager. patient lying in bed with eyes open, respiration even and unlabored without SOB. Call light in reach.
--- NOTE | 2019-09-21 20:40 | NUR ---
PATIENT AOX3, NO SIGNS OF DISTRESS NOTED. NASAL CANNULA INTACT AND RUNNING AT 2 LITERS AND PATIENT VOICES NO PAIN AT THIS TIME. IV FLUIDS ARE RUNNING AT ORDERED RATE AND HEAD OF BED ELEVATED. BED IS IN LOWEST POSITION POSSIBLE, SIDE RAILS ARE UP, CALL LIGHT WITHIN REACH, WILL CONTINUE TO MONITOR.
[2019-09-22] VITALS (8 sets, daily range): BP systolic 132–145; BP diastolic 61–77
[2019-09-22] MEDS: SODIUM CHLORIDE 0.9% 1000ML 1,000 ML IV SCH (01:39)
--- NOTE | 2019-09-22 03:23 | NUR ---
PATIENT WOKE UP DISORIENTED, GOWN WAS COMPLETELY OFF, AND TELE LEADS COMPLETELY PULLED OFF SITTING ON EDGE OF BED. PATIENT DID NOT KNOW WHAT WAS GOING ON AND DID NOT KNOW HOW HE GOT IN THIS STATE. PATIENT HAD TAKEN AMBIEN EARLIER IN THE NIGHT, WAS REDRESSED IN GOWN, LEADS PUT BACK ON, AND READJUSTED IN BED FOR COMFORT. ALARM PUT BACK ON, CALL LIGHT WITHIN REACH, PATIENT NOW RESTING, CONTINUING TO MONITOR.
[2019-09-22] MEDS: VANCOMYCIN 250MG/5ML ORAL SOLN PO SCH ×2 (06:21→13:16)
--- NOTE | 2019-09-22 06:30 | NUR ---
DUE TO THE PATIENT BEING DISORIENTED EARLIER IN THE SHIFT, DISCUSSED WITH PATIENT TO REFRAIN TAKING AMBIEN AT BEDTIME. CONTINUING TO MONITOR PATIENT.
[2019-09-22] MEDS: APIXABAN 5 MG TABLET PO SCH ×2 (09:24→21:00)
[2019-09-22] MEDS: AMIODARONE HCL 200 MG TAB PO SCH ×2 (09:24→18:07)
[2019-09-22] MEDS: FOLIC ACID 1 MG TAB PO SCH (09:25)
[2019-09-22] MEDS: METOPROLOL TARTRATE 25 MG TAB PO SCH ×2 (09:26→21:00)
--- NOTE | 2019-09-22 10:52 | Progress Note ---
DATE: 10/23/2019 SUBJECTIVE: The patient slept better last night. He feels better overall, but he is still weak. PHYSICAL EXAMINATION: VITAL SIGNS: The patient is afebrile. The blood pressure is 143/63 and saturation is 99% on 2 L. CARDIAC: Reveals a regular rate and rhythm with a normal S1 and S2. There are no murmurs or rubs. LUNGS: Auscultation of lungs reveals rhonchorous breath sounds bilaterally. There is no wheezing. ABDOMEN: Soft and nontender. There is no rebound or guarding. EXTREMITIES: Show no leg edema or calf tenderness. There is no cyanosis or clubbing. SKIN: Shows no rashes. NEUROLOGICAL: Shows no focal abnormalities. IMPRESSION: 1. Clostridium difficile colitis. 2. Acute renal failure that is improving. 3. Atrial fibrillation. 4. Anemia secondary to chronic blood loss. 5. Obstructive sleep apnea. PLAN: 1. Continue to monitor electrolytes and creatinine. 2. Continue current cardiac regimen. 3. The patient is awaiting disposition for further rehab. MD DANICA Murrell/NICK /[id number]
--- NOTE | 2019-09-22 10:58 | NUR ---
spoke wiht Dr. Gomez at bedside, who states he believes pt is going into fluid overload. he recommends discontinuing pt's IV fluids and giving IV Lasix, but wants to confirm with Renal doctor before placing order.
[2019-09-22] MEDS: LIDOCAINE 4% PATCH TP SCH (13:16)
--- NOTE | 2019-09-22 13:43 | Progress Note ---
DATE: 09/22/2019 Cardiology Progress Note SUBJECTIVE: No complaints today. OBJECTIVE: VITAL SIGNS: Temperature 98 degrees, heart rate 63, blood pressure 145/65, respiratory rate 20, O2 saturation 99%. GENERAL: In no acute distress, alert. NECK: No JVD. CHEST: With scattered rhonchi. CARDIOVASCULAR: Regular rate and rhythm. Distant heart sounds. ABDOMEN: Bowel sounds positive, distended, nontender. Extremities 2+ edema. Warm distal extremities. CARDIOVASCULAR MEDICATIONS: Reviewed and normal saline at 75 mL an hour, metoprolol tartrate 5 mg every 8 hours IV and 12.5 mg every 12 hours p.o. Amiodarone 400 mg b.i.d., Eliquis 5 mg every 12 hours. LABORATORY STUDIES: Reviewed. Sodium 142, potassium 4.1, chloride 110, bicarbonate 21, BUN 36, creatinine 1.4, glucose 78. White blood cell 6.2, hemoglobin 9.3, platelets 137. INR 0.9, PT 13.4, PTT 59.8. AST 38, ALT 58, alkaline phosphatase 88, total bilirubin 0.4. ASSESSMENT: 1. A 74-year-old man presents with acute renal failure, now recovering with slight volume overload. 2. Paroxysmal atrial fibrillation. 3. Paroxysmal supraventricular tachycardia. 4. Hypertension. 5. Morbid obesity. 6. Deconditioning. 7. Severe sepsis and septic shock, now resolved. RECOMMENDATIONS: 1. Defer volume optimization to Nephrology expertise. If okay with Nephrology, may consider transitioning out of normal saline to IV diuretics. However, we will defer to their expertise. 2. Stable anemia. Continue to monitor. No evidence of gross bleeding. Continue anticoagulation. 3. Continue rate control strategy with metoprolol. Ector Clayton MD [facility]/MODL /[id number]
[2019-09-22] MEDS ORDERED: ALBUTEROL/IPRATROPIUM 3 ML NEB NEB PRN (14:15)
[2019-09-22] MEDS: IRON SUCROSE 100 MG in SODIUM CHLORIDE 0.9% 100 ML 100 ML IV SCH (15:27)
--- NOTE | 2019-09-22 17:14 | Progress Note ---
DATE: 09/22/2019 CONSULTANTS: 1. Dr. Gomez with Cardiology. 2. Dr. Light with GI. 3. Dr. Barnes with Nephrology. 4. Dr. Loja with Intensive Care. CHIEF COMPLAINT: Diarrhea and irregular heart rhythm. SUBJECTIVE: The patient is resting in bed in no acute distress. He denies any chest pain. He is noted to have some shortness of breath today. We will stop IV fluids and check a chest x-ray. Continuing to work with physical therapy. OBJECTIVE: VITAL SIGNS: Temperature 97.7, pulse is 61, respirations 17, blood pressure 132/61, pulse ox is 100% on 2 L of oxygen. GENERAL: No acute distress, fatigued. HEENT: Normocephalic, atraumatic. CARDIOVASCULAR: Regular rate and rhythm. LUNGS: With decreased breath sounds and some wheezing noted. ABDOMEN: Soft and nontender, obese. NEUROLOGIC: Alert, awake, and oriented x3. MUSCULOSKELETAL: Moves all extremities. SKIN: Dry. ASSESSMENT AND PLAN: 1. Severe sepsis on admission due to Clostridium diff. Continue vancomycin p.o. Stool is soft and formed. 2. Acute renal failure. Likely due to diarrhea. Improved with IV fluid hydration. Creatinine is 1.4. Nephrology on the case. 3. Hypertension, now stable. We will continue with beta-blockers. 4. Atrial fibrillation, new onset. Continue on amiodarone 400 mg p.o. b.i.d., metoprolol and Eliquis for cerebrovascular accident prophylaxis. 5. Anemia, likely chronic. Hemoglobin stable currently, but we will continue to monitor closely. Iron was low. We will start ferrous sulfate p.o. 6. History of Crohn disease. GI on the case. 7. History of sleep apnea. Continue with CPAP. 8. Morbid obesity. 9. Shortness of breath. We will check chest x-ray today. Discontinue IV fluids. DuoNeb p.r.n. 10. Chronic back pain. We will start on lidocaine patch. 11. Debility. We will continue to work with physical therapy. [facility] facility eval pending. 12. Deep vein thrombosis prophylaxis. On Eliquis. 13. Disposition. [facility]wait[facility] facility eval. Dictated by TAYA Barragan Yiching MD [facility] Fernández/NICK /[id number]
[2019-09-22] MEDS ORDERED: FUROSEMIDE INJ 10 MG/ML 4 ML VIAL IV NR (17:30)
--- NOTE | 2019-09-22 18:52 | Diagnostic Imaging Report ---
EXAMINATION: CHEST SINGLE (PORTABLE) INDICATION: ^sob ^[id number] ^[id number] COMPARISON: Chest pain 2019 FINDINGS: AP view TUBES and LINES: None. LUNGS: Lungs are well inflated. Bilateral interstitial edema. No new consolidations. PLEURA: Small bilateral pleural effusions, unchanged. HEART AND MEDIASTINUM: Stable mild enlargement of the cardiac silhouette. The pulmonary arteries are enlarged. BONES AND SOFT TISSUES: No acute osseous lesion. Soft tissues are unremarkable. UPPER ABDOMEN: No free air under the diaphragm. IMPRESSION: Bilaterally interstitial edema, similar to prior exam. Signed by: Dr. Ivory Lewis M.D. on 09/22/2019 6:48 PM
--- NOTE | 2019-09-22 21:00 | NUR ---
PATIENT AOX3, NO SIGNS OF DISTRESS NOTED. NASAL CANNULA INTACT AND RUNNING AT 2 LITERS AND PATIENT VOICES NO PAIN AT THIS TIME. IV FLUIDS ARE DISCONTINUED AND HEAD OF BED ELEVATED. BED IS IN LOWEST POSITION POSSIBLE, SIDE RAILS ARE UP, CALL LIGHT WITHIN REACH, WILL CONTINUE TO MONITOR.
[2019-09-23] VITALS (8 sets, daily range): BP systolic 127–148; BP diastolic 60–71
[2019-09-23 06:35] LABS: BASOPHILS % 0.7 % (0.0-1.0); EOSINOPHILS # (AUTO) 0.1 (0.0-0.4); EOSINOPHILS % 1.9 % (0.0-6.0); HEMATOCRIT 31.5 % (38.2-49.6); HEMOGLOBIN 9.5 g/dL (14.0-18.0); LYMPHOCYTES # (AUTO) 0.9 (1.0-3.2); LYMPHOCYTES % 15.7 % (18.0-39.1); MEAN CORPUSCULAR HEMOGLOBIN 32.9 pg (28-32); MEAN CORPUSCULAR HGB CONC 30.2 g/dL (31-35); MONOCYTES # (AUTO) 0.7 (0.2-0.8); MONOCYTES % 11.6 % (4.4-11.3); NEUTROPHILS # (AUTO) 3.9 (2.1-6.9); NEUTROPHILS % 65.9 % (38.7-80.0); PLATELET COUNT 164 x10e3/uL (140-360); RED BLOOD COUNT 2.89 x10e6/uL (4.3-5.7); RED CELL DISTRIBUTION WIDTH 16.1 % (11.7-14.4)
--- NOTE | 2019-09-23 07:00 | NUR ---
received am report and rounds done. pt is alert resting in bed, no s/s of distress. call light within reach and instructed pt to call RN for help
[2019-09-23 08:19] LABS: ANION GAP 14.4 mmol/L (8-16); CREATININE, SERUM 1.42 mg/dL (0.72-1.25); POTASSIUM 4.4 mmol/L (3.5-5.1)
[2019-09-23] MEDS: APIXABAN 5 MG TABLET PO SCH ×2 (08:44→21:10)
[2019-09-23] MEDS: AMIODARONE HCL 200 MG TAB PO SCH ×2 (08:44→18:04)
[2019-09-23] MEDS: FOLIC ACID 1 MG TAB PO SCH (08:44)
[2019-09-23] MEDS: FERROUS SULFATE 325 MG TAB PO SCH (08:44)
[2019-09-23] MEDS: METOPROLOL TARTRATE 25 MG TAB PO SCH ×2 (08:44→21:10)
[2019-09-23] MEDS: LIDOCAINE 4% PATCH TP SCH (08:47)
[2019-09-23] MEDS ORDERED: GUAIFENESIN/CODEINE 10 ML CUP PO PRN (10:30)
[2019-09-23] MEDS ORDERED: BENZONATATE 100 MG CAP PO PRN (10:30)
[2019-09-23 10:52] LABS: EOSINOPHILS % (MANUAL) 1 % (0-7); LYMPHOCYTES % (MANUAL) 9 % (19-48); MONOCYTES % (MANUAL) 15 % (3.4-9.0); MYELOCYTES % (MANUAL) 1 % (0-0); NEUTROPHILS % (MANUAL) 73 % (40-74); NUCLEATED RED BLOOD CELLS 2
[2019-09-23 10:53] LABS: PLATELET ESTIMATE ADEQUATE; PLATELET MORPHOLOGY COMMENT NORMAL; RBC MORPHOLOGY COMMENT NORMAL
--- NOTE | 2019-09-23 12:44 | Progress Note ---
DATE: 09/23/2019 Cardiology Progress Note SUBJECTIVE: Leg edema remains significant, occasional cough, no chest pain. No other complaints. PHYSICAL EXAMINATION: VITAL SIGNS: Temperature 97.6, heart rate 63, respiratory rate 18, blood pressure 148/66, and O2 saturation 98% on 2 L/minute nasal cannula. GENERAL: In no acute distress, alert. NECK: No JVD. CHEST: Clear to auscultation. CARDIOVASCULAR: Regular rate and rhythm. Normal S1, S2. ABDOMEN: Soft. EXTREMITIES: 2+ edema. CARDIOVASCULAR MEDICATIONS: Reviewed. Eliquis 5 mg every 12 hours, ferrous sulfate 325 mg daily, metoprolol tartrate 12.5 mg every 12 hours, amiodarone 400 mg b.i.d. switch to once daily, furosemide 60 mg IV x1. IV fluids have been discontinued. LABORATORY DATA: White blood cells 5.9, hemoglobin 9.5, and platelets 164. Sodium 142, potassium 4.4, chloride 109, bicarbonate 23, BUN 21, creatinine 1.4, BUN 49, glucose 95, calcium 9. Telemetry, sinus rhythm. ASSESSMENT AND PLAN: 1. A 74-year-old man with paroxysmal atrial fibrillation, paroxysmal supraventricular tachycardia, acute renal failure, status post dialysis with persistent volume overload. 2. Hypertension. 3. Morbid obesity. 4. Deconditioning. 5. Status post severe sepsis with septic shock. RECOMMEND: 1. Defer diuretic dosing to renal, given recent acute kidney injury. 2. Stable anemia. Continue to monitor. No active bleeding. Continue anticoagulation. 3. Continue rate control strategy. 4. Decrease amiodarone to 200 mg every 12 hours. MD ROCHELLE Marsh/MODL /[id number]
--- NOTE | 2019-09-23 13:15 | Progress Note ---
DATE: 09/23/2019 SUBJECTIVE: The patient had difficulty sleeping again, last night. He still complains of weakness. He reports some cough. PHYSICAL EXAMINATION: VITAL SIGNS: The patient is afebrile. The vital signs are stable. HEENT: Shows no facial swelling or erythema. CARDIAC: Reveals regular rate and rhythm with normal S1, S2. LUNGS: Auscultation of lungs reveals a few crackles at the bases. There is no wheezing. ABDOMEN: Soft, nontender. There is no rebound or guarding. EXTREMITIES: Show 1 to 2+ leg edema. IMPRESSION: 1. Clostridium difficile. 2. Acute renal failure, that has improved. 3. Atrial fibrillation. 4. Ivoua-xu-hhlorgl systolic congestive heart failure. 5. Anemia, secondary to chronic blood loss. 6. Sleep apnea. 7. Crohn disease. PLAN: 1. Complete treatment for C. difficile colitis. 2. Repeat chest x-ray. 3. Low-dose diuretics. 4. Monitor creatinine. 5. Awaiting possible transfer to rehab unit. Sae Loja MD [facility]/MODL /[id number]
--- NOTE | 2019-09-23 13:17 | Diagnostic Imaging Report ---
EXAMINATION: CHEST SINGLE (PORTABLE) INDICATION: Cough. COMPARISON: Chest radiograph 09/22/2019. FINDINGS: Exam is somewhat limited by portable technique and soft tissue attenuation. TUBES and LINES: Left IJ central line terminates at the brachiocephalic confluence. LUNGS: Lungs are moderately inflated. Mild interstitial opacities. Hazy opacities in the lower lung zones. PLEURA: Small bilateral pleural effusions. No evidence of pneumothorax. HEART AND MEDIASTINUM: The cardiomediastinal silhouette is unremarkable. BONES AND SOFT TISSUES: No acute osseous abnormality. UPPER ABDOMEN: No free air under the diaphragm. IMPRESSION: Mild interstitial edema with lower lung zone opacities, which may reflect small pleural effusions and associated atelectasis. Superimposed infection is possible in the appropriate clinical setting. Signed by: Dr. Shelby Purvis MD on 09/23/2019 1:14 PM
[2019-09-23] MEDS ORDERED: FUROSEMIDE INJ 10 MG/ML 4 ML VIAL IV NR (13:45)
[2019-09-23] MEDS ORDERED: SODIUM CHLORIDE 0.9% 250ML 250 ML ONE (14:08)
[2019-09-23] MEDS: IRON SUCROSE 100 MG in SODIUM CHLORIDE 0.9% 100 ML 100 ML IV SCH (14:21)
--- NOTE | 2019-09-23 16:26 | Progress Note ---
DATE: 09/23/2019 CONSULTANTS: 1. Dr. Gomez with Cardiology. 2. Dr. Light with GI. 3. Dr. Barnes with Nephrology. 4. Dr. Loja with Intensive Care. CHIEF COMPLAINT: Diarrhea and irregular heart rhythm. SUBJECTIVE: The patient is resting in bed with no acute distress. Shortness of breath has improved slightly. Chest x-ray was noted with mild interstitial edema. He was given IV Lasix yesterday and we will repeat 40 mg of Lasix today. OBJECTIVE: VITAL SIGNS: Temperature 97.1, pulse is 55, respirations 16, blood pressure 127/60, and pulse ox is 98% on 2 L of oxygen. GENERAL: No acute distress. HEENT: Normocephalic and atraumatic. CARDIOVASCULAR: Regular rate and rhythm. LUNGS: With decreased breath sounds. ABDOMEN: Soft and nontender, obese. NEUROLOGIC: Alert, awake, and oriented x3. MUSCULOSKELETAL: Moves all extremities. SKIN: Dry. PSYCH: Calm. LABORATORY DATA: WBC 5.93, hemoglobin is 9.5, hematocrit 31.5, and platelets 164. Sodium 142, potassium 4.4, creatinine 1.42, and estimated GFR is 49. IMAGING: Chest x-ray with bilaterally interstitial edema on 09/22/2019. This morning shows mild interstitial edema, which may also reflect small pleural effusions and associated atelectasis. IMPRESSION AND PLAN: 1. Severe sepsis on admission due to C diff. Continue vancomycin p.o. Stool is formed and soft. 2. Acute renal failure. With history of CKD 3. Improved with IV fluids. Creatinine is 1.42. Nephrology on the case. This may be his baseline. 3. Hypertension. Now stable, we will continue on beta-blockers. 4. Atrial fibrillation, new onset. Continue amiodarone and metoprolol for rate control. Eliquis for CVA prophylaxis. 5. Anemia, likely chronic. Hemoglobin is stable. We will continue to monitor closely. Iron has been started. 6. History of Crohn's disease. GI on the case. 7. History of sleep apnea, continue CPAP at night. 8. Morbid obesity. 9. Shortness of breath/dyspnea. Likely due to pulmonary edema. Discontinued IV fluids, we will give IV Lasix and DuoNebs p.r.n. 10. Chronic back pain. We will continue with lidocaine patch. 11. Debility. We will continue with physical therapy. nursing home facility placement. 12. Deep vein thrombosis prophylaxis. On Eliquis. DISPOSITION: nursing home facility likely tomorrow. Dictated by TAYA Barragan Rohiniching MD [facility]/MODL /[id number]
--- NOTE | 2019-09-23 21:10 | NUR ---
PATIENT RESTING IN BED WITH BOTH EYES CLOSED, NO SIGNS OF DISTRESS NOTED. NASAL CANNULA INTACT AND RUNNING AT 2 LITERS AND PATIENT VOICES NO PAIN AT THIS TIME. PATIENT POSITIONED COMFORTABLY AND HEAD OF BED ELEVATED. BED IS IN LOWEST POSITION POSSIBLE, SIDE RAILS ARE UP, CALL LIGHT WITHIN REACH, WILL CONTINUE TO MONITOR.
[2019-09-24 01:10] VITALS: BP 126/57
[2019-09-24 04:03] VITALS: BP 130/68
[2019-09-24 08:04] VITALS: BP 130/58
[2019-09-24] MEDS: METOPROLOL TARTRATE 25 MG TAB PO SCH (09:41)
[2019-09-24] MEDS: FOLIC ACID 1 MG TAB PO SCH (09:41)
[2019-09-24] MEDS: FERROUS SULFATE 325 MG TAB PO SCH (09:41)
[2019-09-24] MEDS: APIXABAN 5 MG TABLET PO SCH (09:41)
[2019-09-24] MEDS: AMIODARONE HCL 200 MG TAB PO SCH (09:41)
[2019-09-24] MEDS: LIDOCAINE 4% PATCH TP SCH (09:41)
--- NOTE | 2019-09-24 10:55 | NUR ---
CALL TO [facility] @ [phone]. SPOKE [place] JUAREZ. STATES THE REFERRAL WAS SENT TO THE DON, BECAUSE THE PT HAD SOME BEHAVIOR ISSUES NOTED. STATES SHE WILL CALL CM W GABRIEL ONCE REVIEWED BY FLORES,
--- NOTE | 2019-09-24 11:31 | NUR ---
RECEIVED CALL FROM LARRY Mead [facility] NOTIFYING CM PT WAS DENIED.
--- NOTE | 2019-09-24 11:53 | Progress Note ---
DATE: 09/24/2019 Cardiology Progress Note SUBJECTIVE: No complaints today. OBJECTIVE: VITAL SIGNS: Temperature 97.9, heart rate 59, blood pressure 130/58, respiratory rate 20, and O2 saturation 99%. BMI 44.1. GENERAL: In no acute distress, alert. NECK: No JVD. CHEST: Clear to auscultation. CARDIOVASCULAR: Regular rate and rhythm. Normal S1, S2. Distant heart sounds. ABDOMEN: Soft, nontender. EXTREMITIES: With 2+ edema. Warm distal extremities. CARDIOVASCULAR MEDICATIONS: Reviewed. metoprolol tartrate 5 mg IV every 8 hours as needed, 12.5 mg every 8 hours p.o. schedule. Eliquis 5 mg every 12 hours, amiodarone 200 mg b.i.d. STUDIES: Reviewed. Sodium 142, potassium 4.4, chloride 109, bicarbonate 23, BUN 21, creatinine 1.42, glucose 95. White blood cells 5.9, hemoglobin 9.5, and platelets 164. AST 38, ALT 58. ASSESSMENT AND PLAN: A 74-year-old man with paroxysmal atrial fibrillation, paroxysmal supraventricular tachycardia, hypertension, acute renal failure, requiring intermittent dialysis and anemia, morbid obesity, deconditioning. RECOMMEND: 1. Continue volume optimization at the discretion of Nephrology expertise, given recent acute kidney injury. Defer diuretics to Nephrology. 2. Continue rate control strategy. 3. Continue amiodarone at decreased dose 200 mg b.i.d. 4. Continue Eliquis. Ector Clayton MD [facility]/MODL /[id number]
[2019-09-24 12:06] VITALS: BP 141/65
--- NOTE | 2019-09-24 12:57 | NUR ---
CM AND BEDSIDE NURSE MET W THE PT TO DISCUSS OPTIONS. INFORMED THE PT OF DENIAL. PT STATES HE DOES NOT WANT TO GO TO ANOTHER FACILITY. PT STATES HE WANTS TO GO TO HIS MOTHER'S HOME @ [address] [place] [address]. NIR CALLED THE GROUP HOME WORKER TO INFORM OF THE PT'S CHOICE TO GO HOME. REQUESTED DC ORDER. ORDERED [facility] FOR THE PT. STATES SHE WILL SEE PT SHORTLY TO DC. CM MET W THE PT FOR CHOICE. PT ALREADY HAS A WALKER. CHOICE GIVEN FOR HOME HEALTH. PT CHOSE [facility]. OK TO USE THE OTHER AGENCIES IF NOT IN NETWORK W HIS INSURANCE.
[2019-09-24] MEDS ORDERED: LOPRESSOR25 MG PO (13:48)
[2019-09-24] MEDS ORDERED: VANCOCIN HCL250 MG PO (13:48)
[2019-09-24] MEDS ORDERED: FERROUS SULFAT325 MG PO (13:48)
[2019-09-24] MEDS ORDERED: ELIQUIS5 MG PO (13:48)
[2019-09-24] MEDS ORDERED: ATORVASTATIN CA10 MG PO (13:48)
[2019-09-24] MEDS ORDERED: AMIODARONE HCL200 MG PO (13:48)
[2019-09-24] MEDS ORDERED: HYDROCHLOROTHIA25 MG PO (13:53)
--- NOTE | 2019-09-24 14:30 | NUR ---
HOME HEALTH DISCHARGE NOTE PATIENT ADDRESS WHERE SERVICE WILL BE RECEIVED: [address] [place] [address] FRANCISCA [place] 1983 PATIENT CONTACT NUMBER: [phone] NAME OF HOME HEALTH COMPANY: [employer] TELEPHONE/FAX NUMBER OF COMPANY: OFF: [phone] / FAX: [phone] SERVICES TO RECEIVE: ALF EVAL AND TREAT, PHYSICAL THERAPY EVAL AND TREAT ANTICIPATED DATE SERVICES WILL BEGIN: 09/25/2019 Please call the company above if you have not received a call to schedule a home visit within 24 hours of discharge.
--- NOTE | 2019-09-24 17:31 | Discharge Summary ---
PRIMARY CARE PHYSICIAN: Dr. Denae Carrillo, at [facility]. FINAL DIAGNOSES: 1. Severe sepsis due to Clostridium difficile on admission. 2. Acute renal failure. 3. Hypertension. 4. Atrial fibrillation, new onset. 5. Anemia. 6. History of Crohn disease. 7. History of sleep apnea. 8. Morbid obesity. 9. Chronic back pain. 10. Debility. CONSULTANTS: 1. Dr. Gomez with Cardiology. 2. Dr. Light with GI. 3. Dr. Barnes with Nephrology. 4. Dr. Loja with Intensive Care. PROCEDURES: None. HISTORY: Per HPI. HOSPITAL COURSE: This is a 74-year-old male, who presented with severe sepsis and renal failure. He was started on aggressive IV fluid hydration, per sepsis protocol. He was noted to have SVTs, then later on into atrial fibrillation. He was transferred to the ICU for close monitoring, was started on amiodarone drip and heparin IV. He has been tenuously converted to normal sinus rhythm. No further workup was needed. Echocardiogram was done, and able to do further cardiac workup due to his renal failure. His kidney function continue to improve. He was started on vancomycin for the C difficile infection. Stool started forming. Creatinine improved from 10 to 1.4, which is his baseline. He was also noted to have debility due to being in bed for quite some time. Physical therapy was consulted and recommended a [facility] facility for rehabilitation. He was denied at [facility], so the patient refused to be placed anywhere else and wants to go home with home health for physical therapy. He has a walker at home, so we will discharge on vancomycin x1 day to complete his C difficile treatment. No diarrhea, afebrile, vital signs stable. We will discharge home to follow up with his PCP, Cardiology, and Nephrology. PHYSICAL EXAMINATION: VITAL SIGNS: Temperature 97.7, pulse is 54, blood pressure is 141/65, pulse ox is 98% on room air. GENERAL: No acute distress. HEENT: Normocephalic, atraumatic. CARDIOVASCULAR: Regular rate and rhythm. LUNGS: With decreased breath sounds. ABDOMEN: Soft and nontender. Obese. NEUROLOGIC: Alert, awake, and oriented x3. MUSCULOSKELETAL: Moves all extremities. SKIN: Dry. PSYCH: Calm. CONDITION AT DISCHARGE: Improved. DISCHARGE MEDICATIONS: See medication reconciliation list. FOLLOWUP: Follow up with PCP, with Cardiology and Nephrology in 1 to 2 weeks. The patient verbalizes understanding. TIME SPENT: Total time of discharge is 35 minutes. Dictated by TAYA Barragan Rohiniching Basil Gardner MD MY/MODL /[id number] cc: Denae Carrillo MD [facility]
== END 2019-09-24 14:24 | disposition home health service (06) | DRG 871 ==
LOC: ER 19:34 → ERHOLD 23:56 → ICU 23:57 → MED/SURG2 09-16 10:31 → ICU 09-17 03:16 → MED/SURG3 09-19 21:14
PROVIDERS: ADMIT Internal Medicine; ATTEND Internal Medicine
PROC: 02HV33Z Insertion of Infusion Device into Superior Vena Cava, Percutaneous Approach (ICD-10-PCS; principal; 2019-09-17)
PROC: 5A1D70Z Performance of Urinary Filtration, Intermittent, Less than 6 Hours Per Day (ICD-10-PCS; 2019-09-18)
DX: A41.89 Other specified sepsis (principal); R65.21 Severe sepsis with septic shock; N17.0 Acute kidney failure with tubular necrosis; G93.41 Metabolic encephalopathy; I50.23 Acute on chronic systolic (congestive) heart failure; Z68.41 Body mass index [BMI] 40.0-44.9, adult; N17.9 Acute kidney failure, unspecified; E87.2 Acidosis; A04.72 Enterocolitis due to Clostridium difficile, not specified as recurrent; K50.90 Crohn's disease, unspecified, without complications; I47.1 Supraventricular tachycardia; I13.0 Hypertensive heart and chronic kidney disease with heart failure and stage 1 through stage 4 chronic kidney disease, or unspecified chronic kidney disease; A41.9 Sepsis, unspecified organism; K76.0 Fatty (change of) liver, not elsewhere classified; K70.0 Alcoholic fatty liver; N18.3 Chronic kidney disease, stage 3 (moderate); M54.5 Low back pain; M54.2 Cervicalgia; G89.29 Other chronic pain; G47.33 Obstructive sleep apnea (adult) (pediatric); E66.01 Morbid (severe) obesity due to excess calories; I48.0 Paroxysmal atrial fibrillation; D50.0 Iron deficiency anemia secondary to blood loss (chronic)
CPT/HCPCS: 36415; 36555; 36600; 51700; 71045; 71250; 74176; 76770; 80048; 80053; 81001; 81015; 82550; 82553; 82805; 82948; 83036; 83540; 83605; 83630; 83735; 83880; 84100; 84443; 84466; 84484; 85025; 85610; 85730; 87040; 87045; 87071; 87086; 87177; 87205; 87328; 87400; 87493; 93005; 93306; 94640; 97139; 99285; J0692; J1160; J1644; J1756; J1817; J1940; J2060; J3411; J3420; J3475; J3486; J7030; J7050; J7799

== ENCOUNTER 2020-09-05 14:41 | Emergency (ER) | payer MEDICARE, OTHER ==
[~2020-09-05] VITALS: Ht 175.3 cm; Wt 113.4 kg
[~2020-09-05 14:41] MED LIST changes: +AMIODARONE HCL200 MG PO; +ATORVASTATIN CA10 MG PO; +DILTIAZEM HCL60 MG PO; +ELIQUIS5 MG PO; +FERROUS SULFAT325 MG PO; +HYDROCHLOROTHIA25 MG PO; +LOPRESSOR25 MG PO; +LOSARTAN POTAS100 MG PO; +PENTASA500 MG PO; +VANCOCIN HCL250 MG PO
[2020-09-05] MEDS ORDERED: MORPHINE SULFATE INJ 4 MG/ML INJ 1ML IV STA (14:55)
[2020-09-05] MEDS ORDERED: ONDANSETRON HCL INJ 2MG/ML 2ML 2 MG/ML VIAL IV STA (14:55)
[2020-09-05] MEDS ORDERED: SODIUM CHLORIDE 0.9% 1000ML 1,000 ML IV STA (14:55)
[2020-09-05] MEDS ORDERED: MORPHINE SULFATE INJ 4 MG/ML INJ 1ML ONE (15:07)
[2020-09-05] MEDS ORDERED: ONDANSETRON HCL INJ 2MG/ML 2ML 2 MG/ML VIAL ONE (15:07)
--- NOTE | 2020-09-05 15:07 | Emergency Department Note ---
History of Present Illnes History of Present Illness History of Present Illness This is a 75 year old male with acute onset of R sided neck pain this AM which radiates down to his R anterior chest wall . Onset (how long ago): hour(s) Location: right neck pain, R chest wall Radiation: Reports neck Severity: moderate Onset quality: gradual Duration (how long): hour(s) Timing of current episode: constant Progression: worsening Chronicity: new Context: Denies recent illness, Denies recent surgery, Denies recent immobilization, Denies recent travel, Denies trauma/injury, Denies new medications, Denies hx of DVT/PE, Denies non-compliance w/ medications, Denies other Relieving factors: rest Exacerbating factors: movement Associated symptoms: Reports chest pain Treatments prior to arrival: none Past Medical/Family History Physician Review I have reviewed the patient's past medical and family history. Any updates have been documented here. Past Medical History Past Medical History: Hypertension, COPD, CHF, A-Fib, CAD, Anxiety, Hyperlipedemia, Chronic Back Pain Other Medical History: current smoker Other Surgery: right knee surgery Social History Smoking Cessation: Never Smoker Alcohol Use: None Any Illegal Drug Use: No Other Last Tetanus: UTD Review of Systems Review of Systems Constitutional: Reports no symptoms EENTM: Reports other (neck pain) Cardiovascular: Reports chest pain Respiratory: Reports no symptoms Gastrointestinal: Reports no symptoms Genitourinary: Reports no symptoms Musculoskeletal: Reports no symptoms Integumentary: Reports no symptoms Neurological: Reports no symptoms Psychological: Reports no symptoms Endocrine: Reports no symptoms Hematological/Lymphatic: Reports no symptoms Physical Exam Related Data Allergies: Coded Allergies: No Known Allergies (Unverified , 04/02/17) Triage Vital Signs Vital Signs Date Time Temp Pulse Resp B/P (MAP) Pulse Ox O2 Delivery O2 Flow Rate FiO2 09/05/20 14:47 98.8 60 18 161/71 97 Room Air Vital signs reviewed: Yes Physical Exam CONSTITUTIONAL Constitutional: Present well-developed, Present morbidly obese HENT HENT: Present normocephalic, Present atraumatic, Present oropharynx clear/moist, Present nose normal HENT L/R: Present left ext ear normal, Present right ext ear normal EYES Eyes: Reports PERRL, Reports conjunctivae normal NECK Neck: Present ROM normal PULMONARY Pulmonary: Present effort normal, Present breath sounds normal CARDIOVASCULAR Cardiovascular: Present bradycardia, Present LLE edema, Present RLE edema GASTROINTESTINAL Abdominal: Present soft, Present nontender, Present bowel sounds normal GENITOURINARY Genitourinary: Present exam deferred SKIN Skin: Present warm, Present dry MUSCULOSKELETAL Musculoskeletal: Present ROM normal NEUROLOGICAL Neurological: Present alert, Present oriented x 3, Present no gross motor or sensory deficits PSYCHOLOGICAL Psychological: Present mood/affect normal, Present judgement normal Results Laboratory Lab results reviewed: Yes Laboratory comments CBC : WNL CMP : Cr 1.5 cardiac enzymes: neg D-dimer: 275 BNP: 309 Imaging Imaging results reviewed: Yes Impressions [place] [address] Patient Name: JUANITO FLORES MR #: [id number] : 1945 Age/Sex: 75/M Req #: [id number] Adm Physician: Ordered by: MALCOM MORGAN DO Report #: [id number] Location: [facility] Room/Bed: Procedure: [id number] HOPD/CT CHEST WITH CONTRAST-HOPD Exam Date: 09/05/20 Exam Time: 1611 REPORT STATUS: Signed EXAM: CT Chest WITH intravenous contrast 09/05/2020 3:57 PM INDICATION: Neck pain COMPARISON: Chest radiograph 09/23/2019 TECHNIQUE: Chest was scanned utilizing a multidetector helical scanner from the lung apex through the level of the adrenal glands after administration of IV contrast. Coronal and sagittal reformations were obtained. Routine protocol was performed. IV CONTRAST: 100mL Isovue 370 RADIATION DOSE: Total DLP: 325 mGy*cm. Dose modulation, iterative reconstruction, and/or weight based adjustment of the mA/kV was utilized to reduce the radiation dose to as low as reasonably achievable. COMPLICATIONS: None FINDINGS: LINES/ TUBES: None. LUNGS AND AIRWAYS: The central airways are patent. No focal consolidation or pulmonary edema. Minimal dependent left lower lobe subsegmental atelectasis. PLEURA: The pleural spaces are clear. HEART AND MEDIASTINUM: The thyroid gland is normal. No mediastinal, hilar or axillary lymphadenopathy. The heart is normal in size.. There is no pericardial effusion. Scattered atherosclerotic calcifications involve the thoracic aorta, coronary arteries, and proximal great vessels. UPPER ABDOMEN: No acute findings in the upper abdomen. Diffuse hepatic steatosis. BONES: Old right seventh lateral rib fracture. No acute osseous injury. No suspicious lytic or blastic lesions. SOFT TISSUES: Unremarkable. IMPRESSION: No focal pneumonia or pulmonary edema. Diffuse hepatic steatosis. Signed by: Ramone Ramírez MD on 09/05/2020 4:15 PM Dictated By: RAMONE RAMÍREZ MD 14 Transcribed By: ROBERT on 09/05/201614 COPY TO: MALCOM MORGAN DO~ Procedures 12 Lead ECG Interpretation ECG Interpretation : ECG: ECG 1 Software Designer: Interpreted by ED physician Date: Sep 05, 2020 Time: 15:12 Prior ECG tracings: reviewed Rhythm: sinus bradycardia Rate: bradycardia BPM: 53 QRS axis: normal ST segments normal: Yes T waves normal: Yes Clinical Impression: non-specific ECG Assessment & Plan Medical Decision Making MDM Diff Dx : empyema, cervical radiculopathy, PE, PNA, Sepsis, ACS Assessment & Plan Final Impression: (1) Cervical radiculopathy Depart Disposition: HOME, SELF-penitentiary Meds Active Scripts Hydrochlorothiazide (HYDROCHLOROTHIAZIDE) 25 Mg Tablet, 25 MG PO DAILY, #30 TAB Prov:BENNIE MARQUEZ NP 09/24/19 Amiodarone Hcl (AMIODARONE HCL) 200 Mg Tablet, 200 MG PO BID for 30 Days, #60 Prov:BENNIE MARQUEZ NP 09/24/19 Metoprolol Tartrate (LOPRESSOR) 25 Mg Tab, 12.5 MG PO Q12HR for 30 Days, #60 TAB Prov:BENNIE MARQUEZ NP 09/24/19 Ferrous Sulfate (FERROUS SULFATE) 325 Mg Tablet, 325 MG PO DAILY for 30 Days, #30 Prov:BENNIE MARQUEZ NP 09/24/19 Apixaban (Eliquis) 5 Mg Tablet, 5 MG PO Q12HR for 30 Days, #60 Prov:BENNIE MARQUEZ DIKE SUPERVISOR 09/24/19 Atorvastatin Calcium (ATORVASTATIN CALCIUM) 10 Mg Tablet, 10 MG PO 2100, #30 TAB Prov:BENNIE MARQUEZ DIKE SUPERVISOR 09/24/19 Reported Medications Pregabalin (LYRICA) 75 Mg Cap, 75 MG PO DAILY, #30 CAP 09/05/20 Allopurinol (ALLOPURINOL) 100 Mg Tablet, 100 MG PO DAILY, #30 TAB 09/05/20 Mesalamine (PENTASA) 500 Mg Capcr, 800 MG PO TID, CAP 09/15/19 Discontinued Scripts Vancomycin Hcl (VANCOCIN HCL) 250 Mg Capsule, 125 MG PO Q6HR for 1 Day, #5 Prov:BENNIE MARQUEZ NP 09/24/19 MALCOM MORGAN DO Sep 05, 2020 15:07
[2020-09-05] MEDS ORDERED: SODIUM CHLORIDE 0.9% 1000ML 1,000 ML ONE (15:08)
--- OUTSIDE RECORDS SUMMARY | 2020-09-05 15:29 | XMS REPORT | Continuity of Care Document ---
Author Author [facility] Organization [facility] Address [address] [place] [address] Phone Unavailable Care Team Providers Care Electronic Publishing Specialist Name Role Phone NONSTAFF PCP Unavailable Trista DE LUNA YIJUAN FRANCISCO Attphys Unavailable Trista DE LUNA YIJUAN FRANCISCO Admphys Unavailable Payers Payer Name Policy Type Policy Number Effective Date Expiration Date Mikayla kowalski [facility] [id number] 2016 00:00:[address] [facility] Medicare Advantage [id number] 2012 00:0 0:00 [facility] Problems Condition Name Condition Details Condition Category Status Onset Date Resolution Date Last Treatment Date Treating Clinician Comments Source Acute renal failure Acute renal failure Problem Active [facility] Diarrhea Diarrhea Problem Active [facility] Perianal abscess Perianal abscess Problem Active [facility] Septic shock Septic shock Problem Active [facility] Allergies, Adverse Reactions, Alerts This patient has no known allergies or adverse reactions. Medications Ordered Medication Name Filled Medication Name Start Date Stop Da te Current Medication? Ordering Clinician Indication Dosage Frequency Signature (SIG) Comments Components Source Amiodarone Hcl 200 Mg Tablet Amiodarone Hcl 200 Mg Tablet 2019-09-09 6 00:00:00 Yes Bennie Marquez Care Advocate 200 Twice A Day [facility] Apixaban (Eliquis) 5 Mg Tablet Apixaban (Eliquis) 5 Mg Table t 2019-09-24 00:00:00 Yes Bennie Marquez Care Advocate 5 Every 12 Hours [facility] Atorvastatin Calcium 10 Mg Tablet Atorvastatin Calcium 10 Mg Tablet 2019-09-24 00:00:00 Yes Bennie Marquez Np 10 Today At 9:00PM [facility] Ferrous Sulfate 325 Mg Tablet Ferrous Sulfate 325 Mg Tablet 2018 00:00:00 Yes Bennie Marquez Care Advocate 325 Daily [facility] Hydrochlorothiazide 25 Mg Tablet Hydrochlorothiazide 25 Mg T ablet 2019-09-24 00:00:00 Yes Bennie Marquez Care Advocate 25 Daily [facility] Metoprolol Tartrate (Lopressor) 25 Mg Tab Metoprolol T artrate (Lopressor) 25 Mg Tab 2019-09-24 00:00:00 Yes Bennie Marquez Care Advocate 12.5 Every 12 Hours [facility] Vancomycin Hcl (Vancocin Hcl) 250 Mg Capsule Vancomyci n Hcl (Vancocin Hcl) 250 Mg Capsule 2019-09-24 00:00:00 Yes Bennie Marquez Care Advocate 125 Every 6 Hours [facility] Mesalamine (Pentasa) 500 Mg Capcr Mesalamine (Pentasa) 500 Mg Capcr Yes 800 Three Times A Day [facility] Atorvastatin Calcium 10 Mg Tablet, 10 Mg Oral Atorvast atin Calcium 10 Mg Tablet, 10 Mg Oral 2019-09-24 00:00:00 No 10 Today At 9:00 PM [facility] Cephalexin Monohydrate (Keflex) 500 Mg Capsule, Cephal exin Monohydrate (Keflex) 500 Mg Capsule, 2019-09-24 00:00:00 No [facility] Diltiazem Hcl 60 Mg Tablet, 120 Mg Oral Diltiazem Hcl 60 Mg Tablet, 120 Mg Oral 2019-09-24 00:00:00 No 120 Daily [facility] Losartan Potassium 100 Mg Tablet, 100 Mg Oral Losartan Potassium 100 Mg Tablet, 100 Mg Oral 2019-09-24 00:00:00 No 100 Daily [facility] Procedures Procedure Date / Time Performed Performing Clinician [facility] e Ultrasound, renal 2019-09-18 00:00:00 KANDI NÚÑEZ [facility] Computed tomography of chest without contrast 2019-09-14 00: 00:00 ROSY BILLS [facility] CT of abdomen and pelvis without contrast 2019-09-14 00:00:00 ROSY BONNER [facility] Encounters Start Date/Time End Date/Time Encounter Type Admission Type [facility] Care Department Encounter ID Source 2019-09-14 23:56:00 2019-09-24 14:24:00 Discharged Inpatient 1 RAYSA DE LUNA [facility] [id number] [facility] Results Test Description Test Time Test Comments Results Result Comments Source CHEST SINGLE (PORTABLE) 2019-09-23 13:12:00 [facility] [address] [address] Patient Name: JUANITO FLORES MR #: [id number] : 1945 Age/Sex: 74/M Req #: [id number] Adm Physician: RAYSA DE LUNA MD Ordered by: CARLOS FISHMAN MD Report #: [id number] Location: [facility] Room/Bed: [facility] Procedure: [id number] DX/CHEST SINGLE (PORTABLE) Exam Date: 09/23/19 Exam Time: 1228 REPORT STATUS: Signed EXAMINATION: CHEST SINGLE (PORTABLE) INDICATION: Cough. COMPARISON: Chest radiograph 09/22/2019. FINDINGS: Exam is somewhat limited by portable technique and soft tissue attenuation. TUBES and LINES: Left IJ central line terminates at the brachiocephalic confluence. LUNGS: Lungs are moderately inflated. Mild interstitial opacities. Hazy opacities in the lower lung zones. PLEURA: Small bilateral pleural effusions. No evidence of pneumothorax. HEART AND MEDIASTINUM: The cardiomediastinal silhouette is unremarkable. BONES AND SOFT TISSUES: No acute osseous abnormality. UPPER ABDOMEN: No free air under the diaphragm. IMPRESSION: Mild interstitial edema with lower lung zone opacities, which may reflect small pleural effusions and associated atelectasis. Superimposed infection is possible in the appropriate clinical setting. Signed by: Dr. John Chauhan MD on 09/23/2019 1:14 PM Dictated By: JOHN CHAUHAN MD 13 Transcribed By: ROBERT on 09/23/191313 COPY TO: CARLOS FISHMAN MD Differential Total Cells Counted 2019-09-23 10:53:00 Test Item Differential Total Cells Counted (test code = Differfilemon tial Total Cells Counted) 100 [facility] (Manual)2019-09-23 10:53:00 * Test Item Value Reference Range Interpretation Comments Neutrophils % (Manual) (test code = 38746-6) 73 40-74 [facility]Lymphocytes % (Manual)2019-09-23 10:53:00 * Test Item Value Reference Range Interpretation Comments Lymphocytes % (Manual) (test code = 737-7) 9 19-48 L [facility]anoMonocytes % (Manual)2019-09-23 10:53:00* Test Item Value Reference Range Interpretation Comments Monocytes % (Manual) (test code = 744-3) 15 3.4-9.0 H [facility]Eosinophils % (Manual)2019-09-23 10:53:00 * Test Item Value Reference Range Interpretation Comments Eosinophils % (Manual) (test code = 714-6) 1 0-7 [facility] % (Manual)2019-09-23 10:53:00* Test Item Value Reference Range Interpretation Comments Basophils % (Manual) (test code = 95698-8) 1 0-1.5 [facility]anoMyelocytes %2019-09-23 10:53:00* Test Item Value Reference Range Interpretation Comments Myelocytes % (test code = 749-2) 1 0-0 H [facility]anoNucleated Red Blood Ydfrg3622-72-13 10:53:00* Test Item Value Reference Range Interpretation Comments Nucleated Red Blood Cells (test code = 48013-0) 2 [facility]anoPlatelet Wjoydohi8620-09-13 10:53:00* Test Item Value Reference Range Interpretation Comments Platelet Estimate (test code = 34348-0) ADEQUATE [facility]anoPlatelet Morphology Khiuujw1898-29-49 10:53:00* Test Item Value Reference Range Interpretation Comments Platelet Morphology Comment (test code = 04392-6) NORMAL [facility]anoMacrocytosis2019-12-15 10:53:00* Test Item Value Reference Range Interpretation Comments Macrocytosis (test code = 738-5) SLIGHT [facility]anoRed Cell Morphology Lfvqntt3396-16-96 10:53:00* Test Item Value Reference Range Interpretation Comments Red Cell Morphology Comment (test code = 6742-1) NORMAL [facility] Planoodium Fttoh4521-75-14 08:27:00* Test Item Value Reference Range Interpretation Comments Sodium Level (test code = 2951-2) 142 136-145 [facility]anoPotassium Pvmxu2584-92-99 08:27:00* Test Item Value Reference Range Interpretation Comments Potassium Level (test code = 2823-3) 4.4 3.5-5.1 [facility]anoChloride Ekipj1590-13-66 08:27:00* Test Item Value Reference Range Interpretation Comments Chloride Level (test code = 2075-0) 109 98-107 H [facility]anoCarbon Dioxide Bbpmb0018-25-68 08:27:00* Test Item Value Reference Range Interpretation Comments Carbon Dioxide Level (test code = 2028-9) 23 22-29 [facility]anoAnion Ojd5425-62-58 08:27:00* Test Item Value Reference Range Interpretation Comments Anion Gap (test code = 26133-0) 14.4 8-16 [facility]anoBlood Urea Eadnpbqa5078-64-78 08:27:00* Test Item Value Reference Range Interpretation Comments Blood Urea Nitrogen (test code = 3094-0) 21 7-26 [facility]anoCreatinine2019-12-15 08:27:00* Test Item Value Reference Range Interpretation Comments Creatinine (test code = 2160-0) 1.42 0.72-1.25 H [facility]anoBUN/Creatinine Gyxdk9378-75-32 08:27:00* Test Item Value Reference Range Interpretation Comments BUN/Creatinine Ratio (test code = 3097-3) 15 6-25 [facility]anoEstimat Glomerular Filtration Rate 2019-09-23 08:27:00* Test Item Value Reference Range Interpretation Comments Estimat Glomerular Filtration Rate (test code = 438161523) 49 >60 L Ranges were taken from the National Kidney Disease Education Program and the [employer] literature.Reference ranges:60 or greater: Yjrinu70-10 ( for 3 consecutive months): Chronic kidney disease 15 or less: Kidney failureChildren's Medical Center PlanoGlucose Ovevi2519-25-28 08:27:00* Test Item Value Reference Range Interpretation Comments Glucose Level (test code = ULG3601) 95 74-118 [facility]anoCalcium Zwelw3356-14-13 08:27:00* Test Item Value Reference Range Interpretation Comments Calcium Level (test code = 52905-1) 9.0 8.4-10.2 [facility]anoWhite Blood Giyqc1196-05-26 06:52:00* Test Item Value Reference Range Interpretation Comments White Blood Count (test code = 6690-2) 5.93 4.8-10.8 [facility]anoRed Blood Bwiiw9752-02-60 06:52:00* Test Item Value Reference Range Interpretation Comments Red Blood Count (test code = 789-8) 2.89 4.3-5.7 L [facility]anoHemoglobin2019-12-15 06:52:00* Test Item Value Reference Range Interpretation Comments Hemoglobin (test code = 21219-5) 9.5 14.0-18.0 L [facility]anoHematocrit2019-12-15 06:52:00* Test Item Value Reference Range Interpretation Comments Hematocrit (test code = 4544-3) 31.5 38.2-49.6 L [facility] PlanoMean Corpuscular Hdftdc2428-10-04 06:52:00* Test Item Value Reference Range Interpretation Comments Mean Corpuscular Volume (test code = 787-2) 109.0 81-99 H [facility] PlanoMean Corpuscular Qieltnlkvp2190-88-98 06:52:00* Test Item Value Reference Range Interpretation Comments Mean Corpuscular Hemoglobin (test code = 785-6) 32.9 28-32 H [facility] PlanoMean Corpuscular Hemoglobin Concent 2019-09-23 06:52:00* Test Item Value Reference Range Interpretation Comments Mean Corpuscular Hemoglobin Concent (test code = 786-4) 30.2 31-35 L [facility] PlanoRed Cell Distribution Xfzls6873-55-30 06:52:00* Test Item Value Reference Range Interpretation Comments Red Cell Distribution Width (test code = 94970-9) 16.1 11.7 -14.4 H [facility] PlanoPlatelet Vipig3679-83-83 06:52:00* Test Item Value Reference Range Interpretation Comments Platelet Count (test code = 777-3) 164 140-360 [facility]anoNeutrophils (%) (Auto)2019-09-23 06:52:00 * Test Item Value Reference Range Interpretation Comments Neutrophils (%) (Auto) (test code = 59209-7) 65.9 38.7-80.0 [facility]anoLymphocytes (%) (Auto)2019-09-23 06:52:00 * Test Item Value Reference Range Interpretation Comments Lymphocytes (%) (Auto) (test code = 736-9) 15.7 18.0-39.1 L [facility]anoMonocytes (%) (Auto)2019-09-23 06:52:00* Test Item Value Reference Range Interpretation Comments Monocytes (%) (Auto) (test code = 5905-5) 11.6 4.4-11.3 H [facility]anoEosinophils (%) (Auto)2019-09-23 06:52:00 * Test Item Value Reference Range Interpretation Comments Eosinophils (%) (Auto) (test code = 713-8) 1.9 0.0-6.0 [facility]anoBasophils (%) (Auto)2019-09-23 06:52:00* Test Item Value Reference Range Interpretation Comments Basophils (%) (Auto) (test code = 706-2) 0.7 0.0-1.0 [facility]anoIM GRANULOCYTES %2019-09-23 06:52:00* Test Item Value Reference Range Interpretation Comments IM GRANULOCYTES % (test code = IM GRANULOCYTES %) 4.2 0.0- 1.0 H [facility]anoNeutrophils # (Auto)2019-09-23 06:52:00* Test Item Value Reference Range Interpretation Comments Neutrophils # (Auto) (test code = 751-8) 3.9 2.1-6.9 [facility]anoLymphocytes # (Auto)2019-09-23 06:52:00* Test Item Value Reference Range Interpretation Comments Lymphocytes # (Auto) (test code = 10104-4) 0.9 1.0-3.2 L [facility]anoMonocytes # (Auto)2019-09-23 06:52:00* Test Item Value Reference Range Interpretation Comments Monocytes # (Auto) (test code = 742-7) 0.7 0.2-0.8 [facility]anoEosinophils # (Auto)2019-09-23 06:52:00* Test Item Value Reference Range Interpretation Comments Eosinophils # (Auto) (test code = 711-2) 0.1 0.0-0.4 [facility]anoBasophils # (Auto)2019-09-23 06:52:00* Test Item Value Reference Range Interpretation Comments Basophils # (Auto) (test code = 704-7) 0.0 0.0-0.1 [facility] PlanoAbsolute Immature Granulocyte (auto 2019-09-23 06:52:00* Test Item Value Reference Range Interpretation Comments Absolute Immature Granulocyte (auto (aravind t code = Absolute Immature Granulocyte (auto) 0.25 0-0.1 H [facility]anoCHEST SINGLE (PORTABLE)2019-09-22 18:48:00 [facility] [address] [place] [address] Patient Name: JUANITO FLORES MR #: [id number] : 1945 Age/Sex: 74/M Req #: [id number] [facility] Physician: RAYSA DE LUNA MD Ordered by: BENNIE MARQUEZ NP Report #: [id number] Location: [address] [place] [address] Room/Bed: [facility] Procedure: [id number] DX/CHEST SINGLE (PORTABLE) Exam Date: 09/22/19 Exam Time: 1817 REPORT STATUS: Signed EXAMINATION: CHEST SINGLE (PORTABLE) INDICATION: sob 20 [id number] COMPARISON: Chest pain 2019 FINDINGS: AP vie w TUBES and LINES: None. LUNGS: Lungs are well inflated. Bilater al interstitial edema. No new consolidations. PLEURA: Small bilateral pleural effusions, unchanged. HEART AND MEDIASTINUM: Stable mild enlargeme nt of the cardiac silhouette. The pulmonary arteries are enlarged. BONES AND SOFT TISSUES: No acute osseous lesion. Soft tissues are unremarkable. UPPER ABDOMEN: No free air under the diaphragm. IMPRESSION: Bila terally interstitial edema, similar to prior exam. Signed by: Dr. Kyle Lewis M.D. on 09/22/2019 6:48 PM Dictated By: JUAN DANIEL LEWIS MD 1 848 Transcribed By: ROBERT on 09/22/19 9725 COPY TO: BENNIE MARQUEZ NP Iron Drucv9667-28-83 15:59:00* Test Item Value Reference Range Interpretation Comments Iron Level (test code = 2498-4) 53 65-175 L [facility] Binding Gyfgswrj4006-62-76 15:59:00* Test Item Value Reference Range Interpretation Comments Total Iron Binding Capacity (test code = 2500-7) 146 261-4 78 L [facility]anoPercent Iron Ltkxoegynk7551-82-28 15:59:00* Test Item Value Reference Range Interpretation Comments Percent Iron Saturation (test code = 2502-3) 36 15-50 [facility]anoTransferrin2019-12-13 15:59:00* Test Item Value Reference Range Interpretation Comments Transferrin (test code = 3034-6) 104 174-364 L [facility] PlanoReactive Rrxanzrrbhz6622-60-18 13:23:00* Test Item Value Reference Range Interpretation Comments Reactive Lymphocytes (test code = 37384-3) 1 [facility] PlanoB-Type Natriuretic Csusybb0530-48-70 05:55:00* Test Item Value Reference Range Interpretation Comments B-Type Natriuretic Peptide (test code = 07366-5) 219.6 0-100 H [facility] PlanoTotal Hldheupge3640-17-08 09:18:00* Test Item Value Reference Range Interpretation Comments Total Bilirubin (test code = 1975-2) 0.4 0.2-1.2 [facility] PlanoAspartate Amino Transf (AST/SGOT) 2019-09-20 09:18:00* Test Item Value Reference Range Interpretation Comments Aspartate Amino Transf (AST/SGOT) (test code = Aspartate Amino Transf (AST/SGOT)) 38 5-34 H [facility] PlanoAlanine Aminotransferase (ALT/SGPT) 2019-09-20 09:18:00* Test Item Value Reference Range Interpretation Comments Alanine Aminotransferase (ALT/SGPT) (test code = 1742-6) 58 0-55 H [facility] PlanoTotal Gpaknhu4053-11-85 09:18:00* Test Item Value Reference Range Interpretation Comments Total Protein (test code = 2885-2) 5.7 6.5-8.1 L [facility] PlanoAlbumin2019-12-12 09:18:00* Test Item Value Reference Range Interpretation Comments Albumin (test code = 1751-7) 2.7 3.5-5.0 L [facility]anoGlobulin2019-12-12 09:18:00* Test Item Value Reference Range Interpretation Comments Globulin (test code = 64992-2) 3.0 2.3-3.5 [facility]anoAlbumin/Globulin Ruywf1335-62-16 09:18:00 * Test Item Value Reference Range Interpretation Comments Albumin/Globulin Ratio (test code = 1759-0) 0.9 0.8-2.0 [facility] PlanoAlkaline Lclrinapbbp9889-91-21 09:18:00* Test Item Value Reference Range Interpretation Comments Alkaline Phosphatase (test code = 6768-6) 88 40-150 [facility] PlanoBlood Pwrjfig1656-26-53 20:43:00* Test Item Value Reference Range Interpretation Comments Blood Culture (test code = 92266504) NO GROWTH AFTER 5 DAYS, FINAL REPORT [facility] Ybywpql8950-23-20 15:27:00* Test Item Value Reference Range Interpretation Comments Blood Culture (test code = 600-7) No Result Data Provided [facility]anoPhosphorus Thmzs0311-52-52 05:36:00* Test Item Value Reference Range Interpretation Comments Phosphorus Level (test code = MRD4427) 2.0 2.3-4.7 L [facility] PlanoMagnesium Ghpny7087-65-03 05:36:00* Test Item Value Reference Range Interpretation Comments Magnesium Level (test code = 26540-7) 1.6 1.3-2.1 [facility] PlanoActivated Partial Thromboplast Time 2019-09-19 05:31:00* Test Item Value Reference Range Interpretation Comments Activated Partial Thromboplast Time (test code = 55440-1) 59.8 23.8-35.5 H [facility]anoHepatitis A IgM Itvrhywf0563-08-35 22:06:00* Test Item Value Reference Range Interpretation Comments Hepatitis A IgM Antibody (test code = 51089-7) Negative Negativ e [facility] B Surface Ttwmekq0635-99-49 22:06:00* Test Item Value Reference Range Interpretation Comments Hepatitis B Surface Antigen (test code = 5196-1) Negative Negat elizabeth [facility]anoHepatitis B Core IgM Xjekqwwg8299-56-26 22:06:00* Test Item Value Reference Range Interpretation Comments Hepatitis B Core IgM Antibody (test code = 03591-2) Negative Ne theresa [facility]anoHepatibaptist [facility] C Swpuoziv4341-54-36 22:06:00* Test Item Value Reference Range Interpretation Comments Hepatitis C Antibody (test code = 50167-7) <0.1 0.0-0.9 Negative: < 0.8 Indeterminate: 0.8 - 0.9 Positive: > 0.9 The CDC recommends that a positive HCV antibody result be followed up with a HCV Nucleic Acid Amplification test (384062).Performed at: [facility] [address] [id number] Director: Charlie Cleveland MD, Phone: [phone] [facility]US [facility] RET[facility] 2019-09-18 14:00:00 [place] [address] Patient Name: JUANITO FLORES MR #: [id number] : 1945 Age/Sex: 74/M Req #: [id number] Adm Physician: RAYSA DE LUNA MD Ordered by: WILTON MEZA, KANDI MEZA Report #: [id number] Location: ICU Room/Bed: [place] [address] Procedure: [id number] US/US RENAL RETROPERITONEAL COMP Exam Date: 09/18/19 Exam Time: 1208 REPORT STATUS: Si gned EXAM: US RENAL RETROPERITONEAL COMP DATE: 09/18/2019 12:00 AM INDICATION: Acute renal failure COMPARISON: CT from 09/14/2019 AQUILES DENNEY: Please note the examination is limited by the patient's body habitus The right kidney is normal in size measuring 10.9 x 4.9 x 5.4 cm with cortical thickness of 1.5 cm. Cortical echogenicity is within normal limits. There is no evidence for solid renal mass, hydronephrosis, or shadowing calculi. The left kidney is normal in size measuring 10.5 x 6.5 x 4.2 cm with cortical thickness of 2.1 cm. Cortical echogenicity is within normal limits. There is no evidence for solid renal mass, hydronephrosis, or shadowing calculi. The urinary bladder is collapsed around a Carlson catheter. IMPRESSION: U nremarkable renal ultrasound examination. Signed by: Dr. Balta Sánchez MD o n 09/18/2019 2:02 PM Dictated By: BALTA SÁNCHEZ MD 01 Transcribed By: ROBERT on 09/18/191401 COPY TO: KANDI NÚÑEZ Urine Wyifymlzvhm1173-93-91 09:35:00* Test Item Value Reference Range Interpretation Comments Urine Eosinophils (test code = 70001-5) NONE SEEN NONE SEEN [facility] XRAY POST NVLKJECZU7643-79-70 09:10:00 [place] [address] Patient Name: JUANITO FLORES MR #: [id number] : 1945 Age/Sex: 74/M Req #: [id number] Adm Physician: RAYSA DE LUNA MD Ordered by: CARLOS FISHMAN MD Report #: [id number] Location: ICU Room/Bed: ICU [facility] Procedure: [id number] DX /CHEST XRAY POST PROCEDURE Exam Date: Exam Time: REPORT STATUS: Signed Chest, port able AP view History: Line placement Comparison: 09/16/2019 IMPRES GAVIN: The cardiac silhouette is stable in size. Left IJ central venous cath eter tip terminates in the mid SVC. Bibasilar atelectasis is present. No sizab le pleural effusion or pneumothorax. Signed by: Irwin Rincon MD on 11/18/2018 9:11 AM Dictated By: IRWIN RINCON MD 0 Transcribed By: ROBERT on 09/17/1906 20 COPY TO: CARLOS FISHMAN MD Influenza Virus Types A,B Antigen 2019-09-17 06:33:00* Test Item Value Reference Range Interpretation Comments Influenza Virus Types A,B Antigen (test code = 45246-2) NEGATIVE NEGATIVE [facility]anoLactic Acid Mbems2966-41-38 03:49:00* Test Item Value Reference Range Interpretation Comments Lactic Acid Level (test code = Lactic Acid Level) 1.4 0.5- 2.0 [facility]anoArterial Blood uJ2826-62-96 13:47:00* Test Item Value Reference Range Interpretation Comments Arterial Blood pH (test code = 2744-1) 7.38 7.31-7.41 [facility]anoArterial Blood Partial Pressure CO2 2019-09-16 13:47:00* Test Item Value Reference Range Interpretation Comments Arterial Blood Partial Pressure CO2 (test code = 2019-05) 33 41-51 L [facility] PlanoArterial Blood Partial Pressure O2 2019-09-16 13:47:00* Test Item Value Reference Range Interpretation Comments Arterial Blood Partial Pressure O2 (test code = 2019-05) 85 80-105 [facility] PlanoArterial Blood YTE02085-27-82 13:47:00* Test Item Value Reference Range Interpretation Comments Arterial Blood HCO3 (test code = 1960-4) 20 23-28 L [facility] PlanoArterial Blood Base Wjtwby3154-51-71 13:47:00* Test Item Value Reference Range Interpretation Comments Arterial Blood Base Excess (test code = 1925-7) -5.0 -2-3 L [facility] PlanoArterial Blood Oxygen Saturation 2019-09-16 13:47:00* Test Item Value Reference Range Interpretation Comments Arterial Blood Oxygen Saturation (test code = 2708-6) 96.0 95-98 [facility] PlanoFiO22019-12-08 13:47:00* Test Item Value Reference Range Interpretation Comments FiO2 (test code = FiO2) 32 PT ON ROOM AIR,RESULT HAND DELIVERED TO SUKHWIDNER SCHAFER AT 1340.CRITICAL VALUES WILL R EAD BACK AND VERIFIED WITH PHYSICIAN.[facility] CHEST SINGLE (PORTABLE)2019-09-16 07:33:00 [facility] [address] [address] Patient Name: JUANITO FLORES MR #: [id number] : 1945 Age/Sex: 74/M Req #: [id number] Adm Physician: RAYSA DE LUNA MD Ordered by: RAYSA DE LUNA MD Report #: [id number] Location: ICU Room/Bed: ICU [facility] Procedure: [id number] DX/CHEST SINGLE (PORTABLE) Exam Date: 09/16/19 Exam Time: 0633 REPORT STATUS: Signed EXAMINATION: Bibasilar atelectasis. COMPARISON: CT chest 09/14/2019 INDICATION: sob [id number] DISCUSSION: Frontal view of the chest obtained at 0633 hours. HEART AND MEDIASTINUM: Stable mild car diomegaly due to prominent pericardial fat pads. LINES: None. MAKAYLA GS: Bibasilar atelectasis, left greater than right. No pneumonia or pulmonary edema. PLEURA: No pleural effusion or pneumothorax. BONES AND SOFT T ISSUES: No focal osseous lesion. The soft tissues are normal. IMPRESSIO N: Bibasilar atelectasis. Signed by: Dr. Jimenez Whitmore MD on 019 7:34 AM Dictated By: JIMENEZ WHITMORE MD 3 Transcribed By: ROBERT on 09/16/19733 COPY TO: RAYSA DE LUNA MD Band Neutrophils %2019-09-16 07:30:00* Test Item Value Reference Range Interpretation Comments Band Neutrophils % (test code = 764-1) 7 [facility]ychromasia2019-12-08 07:30:00* Test Item Value Reference Range Interpretation Comments Polychromasia (test code = 03866-7) FEW [facility]anoAnisocytosis2019-12-08 07:30:00* Test Item Value Reference Range Interpretation Comments Anisocytosis (test code = 702-1) SLIGHT [facility]anoToxic Gihmzbzarkv2171-11-28 07:30:00* Test Item Value Reference Range Interpretation Comments Toxic Granulation (test code = 803-7) MODERATE [facility]anoHemoglobin A1c [id number] 06:21:00 * Test Item Value Reference Range Interpretation Comments Hemoglobin A1c Percent (test code = Hemoglobin A1c Percent) 4.8 4.0-7.0 [facility]anoThyroid Stimulating Hormone (TSH) 2019-09-16 06:15:00* Test Item Value Reference Range Interpretation Comments Thyroid Stimulating Hormone (TSH) (test code = 78155-7) 0.993 0.350-4.940 [facility]anoClostridium Difficile Toxin A & B 2019-09-15 13:00:00* Test Item Value Reference Range Interpretation Comments Clostridium Difficile Toxin A & B (test code = 037293144) POSI TIVE NEGATIVE H Results called to Garima Conway at 1257 on 09/15/19 by Irwin Priest. RB OK.Results printed to infection control at 1257 on 09/15/19 by Irwin Priest.Testing on sto ol aspirate specimens is outside case coordinator claims since specimen type not regla idated on this assay.[facility] Planotool Lactoferrin (LAB)2019-09-15 11:34:00* Test Item Value Reference Range Interpretation Comments Stool Lactoferrin (LAB) (test code = 61498-8) NEGATIVE NEGATIVE Testing on stool aspirate specimens is outside case coordinator claims since specime n type not validated on this assay.[facility] Bedside Tokncgq1761-71-48 07:48:00* Test Item Value Reference Range Interpretation Comments Bedside Glucose (test code = 81609-2) 232 70-120 H Meter ID: [id number][facility] PlanoUrine Fgpqi6700-15-98 02:17:00* Test Item Value Reference Range Interpretation Comments Urine Color (test code = 5778-6) JOAN YELLOW H [facility] Cexjssq5787-03-01 02:17:00* Test Item Value Reference Range Interpretation Comments Urine Clarity (test code = 89151-9) HAZY CLEAR [facility] Specific Dfkcyts6186-17-34 02:17:00 * Test Item Value Reference Range Interpretation Comments Urine Specific [place] (test code = 5811-5) 1.020 1.010-1.02 5 [facility] [id number] 02:17:00* Test Item Value Reference Range Interpretation Comments Urine pH (test code = 27932-4) 6 5-7 [facility] Leukocyte Fblgeefy1776-99-83 02:17:00* Test Item Value Reference Range Interpretation Comments Urine Leukocyte Esterase (test code = 5799-2) NEGATIVE NEGATIVE [facility] Wwzfdtp3016-48-62 02:17:00* Test Item Value Reference Range Interpretation Comments Urine Nitrite (test code = 54543-8) NEGATIVE NEGATIVE [facility] Hpsyukn6145-53-43 02:17:00* Test Item Value Reference Range Interpretation Comments Urine Protein (test code = 5804-0) 1+ NEGATIVE H [facility] Glucose (UA)2019-09-15 02:17:00* Test Item Value Reference Range Interpretation Comments Urine Glucose (UA) (test code = 2349-9) NEGATIVE NEGATIVE [facility] Rmscaon3406-45-54 02:17:00* Test Item Value Reference Range Interpretation Comments Urine Ketones (test code = 53032-3) NEGATIVE NEGATIVE [facility] Gtmyzytbkair0603-32-15 02:17:00* Test Item Value Reference Range Interpretation Comments Urine Urobilinogen (test code = 88305-9) 0.2 0.2-1 [facility] Ebzfchezz6564-14-78 02:17:00* Test Item Value Reference Range Interpretation Comments Urine Bilirubin (test code = 1978-6) MODERATE NEGATIVE [facility] Wxqgr7175-91-63 02:17:00* Test Item Value Reference Range Interpretation Comments Urine Blood (test code = 34806-1) 3+ NEGATIVE [facility] [id number] 02:17:00* Test Item Value Reference Range Interpretation Comments Urine WBC (test code = 5821-4) 6-10 0-5 H [facility] IPS3486-65-58 02:17:00* Test Item Value Reference Range Interpretation Comments Urine RBC (test code = 04999-8) 11-20 0-5 H [facility] Bqoamhev4467-57-47 02:17:00* Test Item Value Reference Range Interpretation Comments Urine Bacteria (test code = 45764-8) MANY NONE H [facility] Epithelial Qsoma0540-60-06 02:17:00 * Test Item Value Reference Range Interpretation Comments Urine Epithelial Cells (test code = 89740-0) MODERATE NONE [facility] Amorphous Svesminb5117-08-52 02:17:00* Test Item Value Reference Range Interpretation Comments Urine Amorphous Sediment (test code = 8246-1) MANY FEW H [facility] PlanoCT ABDOMEN/PELVIS [id number] 22:52:00 [place] [address] Patient Name: JUANITO FLORES MR #: [id number] : 1945 Age/Sex: 74/M Req #: [id number] Adm Physician: Ordered by: ROSY BILLS DO Report #: [id number] Location: ER Room/Bed: Procedure: 1206-[address]/CT ABDOMEN/PELVIS WO Exam Date: 09/14/19 Exam T kallie: 2215 REPORT STATUS: Signed EXAM: CT Chest, Abdomen and Pelvis WITHOUT contrast INDICATION: abd sob [id number] COMPARISON: None. TECHNIQUE: Chest, abdomen and pel vis were scanned utilizing a multidetector helical scanner from the lung apex to the pubic symphysis without administration of IV contrast. Absence of intra venous contrast decreases sensitivity for detection of focal lesions and vascu lar pathology. Coronal and sagittal reformations were obtained. Routine protoc ol was performed. IV CONTRAST: None ORAL CONTRAST: None COMPLICATIONS: None RADIATION DOSE: Total DLP: 1079.5 mGy*cm Estimated effective dose: (DLP x 0.015 x size factor) mSv CTDIvol has been reviewed. It is below the limits set by the Radiation Protocol Commi ttee (RPC). FINDINGS: LINES and TUBES: Right IJ central line in place with tip terminating in mid SVC. Carlson catheter. Rectal tube. LUNGS AND AI RWAYS: Bilateral dependent atelectasis. Bibasilar atelectasis/scarring. Airw ays are normal. PLEURA: The pleural spaces are clear. HEART AND MEDIAS TINUM: The thyroid gland is normal. No mediastinal, hilar or axillary lymphad enopathy. The heart is normal in size.. There is no pericardial effusion. Mi ld atherosclerotic calcification of aorta and coronary arteries. HEPATOBI LIARY: Diffuse hepatic steatosis. Otherwise, unenhanced liver is unremarkable. No focal hepatic lesions. No biliary ductal dilation. GALLBLADDER: No r adio-opaque stones. Suspected gallbladder sludge. No wall thickening. SPL EEN: No splenomegaly. PANCREAS: No focal masses or ductal dilatation. ADRENALS: No adrenal nodules KIDNEYS/URETERS: No hydronephrosis. Balderas ited for evaluation of renal parenchyma without intravenous contrast. No ston es. GI TRACT: Rectal tube in place. No abnormal distention, wall thickening , or evidence of bowel obstruction. There are diverticula within the colon wi thout evidence of diverticulitis. Appendix is normal. PELVIC ORGANS/BLAD CARROL: Unremarkable. LYMPH NODES: No lymphadenopathy. VESSELS: There is moderate atherosclerotic disease in the aorta and major arterial branches. PERITONEUM / RETROPERITONEUM: No free air or fluid. BONES: Mild degenerat elizabeth changes of spine. Grade 1 retrolisthesis of L5 in relation to L4. SOF T TISSUES: Unremarkable. IMPRESSION: 1. No definite evidenc e of acute inflammatory process in the chest, abdomen, or pelvis, considering limitations of unenhanced study. 2. Hepatic steatosis. 3. Colonic divertic ulosis without evidence of diverticulitis. Signed by: Dr. Gurpreet Engle MD on 09/14/2019 11:31 PM Dictated By: GURPREET ENGLE MD Electronically Sign ed By: GURPREET ENGLE MD on 09/14/19 2331 Transcribed By: ROBERT on 09/14/19 23 31 COPY TO: ROSY BILLS DO CT CHEST [id number] 22:52:00 [place] [address] Patient Name: JUANITO FLORES MR #: [id number] : 1945 Age/Sex: 74/M Req #: [id number] Adm Physician: Ordered by: ROSY BILLS DO Report #: [id number] Location: ER Room/Bed: Procedure: 1206-[address]/CT CHEST WO Exam Date: 09/14/19 Exam Time: 2214 REPORT STATUS: Signed EXAM: CT Chest, Abdomen and Pelvis WITHOUT contrast INDICATION: abdsob [id number] COMPARISON: None. TECHNIQUE: Chest, abdomen and pelvis were scanned utilizing a multidetector helical scanner from the lung apex to the pu bic symphysis without administration of IV contrast. Absence of intravenous co ntrast decreases sensitivity for detection of focal lesions and vascular patho logy. Coronal and sagittal reformations were obtained. Routine protocol was pe rformed. IV CONTRAST: None ORAL CONTRAST: None C OMPLICATIONS: None RADIATION DOSE: Total DLP: 1079.5 mGy*cm E stimated effective dose: (DLP x 0.015 x size factor) mSv CTDIvol has been reviewed. It is below the limits set by the Radiation Protocol Committee (RPC ). FINDINGS: LINES and TUBES: Right IJ central line in place with tip terminating in mid SVC. Carlson catheter. Rectal tube. LUNGS AND AIRWAYS: B ilateral dependent atelectasis. Bibasilar atelectasis/scarring. Airways are n ormal. PLEURA: The pleural spaces are clear. HEART AND MEDIASTINUM: Th e thyroid gland is normal. No mediastinal, hilar or axillary lymphadenopathy. The heart is normal in size.. There is no pericardial effusion. Mild athero sclerotic calcification of aorta and coronary arteries. HEPATOBILIARY: Di ffuse hepatic steatosis. Otherwise, unenhanced liver is unremarkable. No foc al hepatic lesions. No biliary ductal dilation. GALLBLADDER: No radio-opaq ue stones. Suspected gallbladder sludge. No wall thickening. SPLEEN: No s plenomegaly. PANCREAS: No focal masses or ductal dilatation. ADRENA LS: No adrenal nodules KIDNEYS/URETERS: No hydronephrosis. Limited for evaluation of renal parenchyma without intravenous contrast. No stones. GI TRACT: Rectal tube in place. No abnormal distention, wall thickening, or ev idence of bowel obstruction. There are diverticula within the colon without e vidence of diverticulitis. Appendix is normal. PELVIC ORGANS/BLADDER: Unre markable. LYMPH NODES: No lymphadenopathy. VESSELS: There is moderate atherosclerotic disease in the aorta and major arterial branches. PERITON EUM / RETROPERITONEUM: No free air or fluid. BONES: Mild degenerative davis es of spine. Grade 1 retrolisthesis of L5 in relation to L4. SOFT TISSUES : Unremarkable. IMPRESSION: 1. No definite evidence of acut e inflammatory process in the chest, abdomen, or pelvis, considering limitatio ns of unenhanced study. 2. Hepatic steatosis. 3. Colonic diverticulosis wi thout evidence of diverticulitis. Signed by: Dr. Gurpreet Engle MD on 2018 11:31 PM Dictated By: GURPREET ENGLE MD 30 Transcribed By: ROBERT on 09/14/192330 COPY TO: ROSY BILLS DO Creatine Kinase [id number] 21:08:00* Test Item Value Reference Range Interpretation Comments Creatine Kinase MB (test code = 35545-2) 7.30 0-5.0 H [facility]anoTroponin [id number] 21:08:00* Test Item Value Reference Range Interpretation Comments Troponin I (test code = UVH8035) 0.068 0-0.300 [facility]anoCreatine [id number] 21:02:00* Test Item Value Reference Range Interpretation Comments Creatine Kinase (test code = 2157-6) 124 30-200 [facility]anoProthrombin [id number] 21:00:00* Test Item Value Reference Range Interpretation Comments Prothrombin Time (test code = 5902-2) 13.4 11.9-14.5 [facility]anoProthromb Time International Ratio 2019-09-14 21:00:00* Test Item Value Reference Range Interpretation Comments Prothromb Time International Ratio (test code = 6301-6) 0.97 Oral Anticoagulant Therapy INR Values:1. Low Intensity Therapy 1.5 - 2.02 . Moderate Intensity Therapy 2.0 - 3.03. High Intensity Therapy(1) 2.5 - 3. 54. High Intensity Therapy(2) 3.0 - 4.05. Panic Value INR > 5.0 [facility]ano[facility]ST [facility])2019-09-14 20:42:00 [place] [address] Patient Name: JUANITO FLORES MR #: [id number] : 1945 Age/Sex: 74/M Req #: [id number] Adm Physician: Ordered by: ROSY BILLS DO Report #: [id number] Location: ER Room/Bed: Procedure: 1206-007 2 DX/CHEST SINGLE (PORTABLE) Exam Date: 09/14/19 Exa m Time: 2029 REPORT STATUS: Signed EXAMINATION: CHEST SINGLE (PORTABLE) INDICATION: SOB 2029 COMPARISON: None FINDINGS: AP view TUBES and LINES: There is a right IJ central line in place the distal tip at the l evel of SVC. There is also a kink noted above the clavicle. LUNGS: Lungs a re well inflated. There is no evidence of pneumonia or pulmonary edema. PLEURA: No pleural effusion or pneumothorax. HEART AND MEDIASTINUM: The c ardiomediastinal silhouette is unremarkable. BONES AND SOFT TISSUES: N o acute osseous lesion. Soft tissues are unremarkable. IMPRESSION: Right IJ central line in place the distal tip at the level of SVC and kink no aamir along the course of the catheter. Signed by: Dwight Pike MD o n 09/14/2019 8:44 PM Dictated By: DWIGHT PIKE MD Electronically Sig natalie By: DWIGHT PIKE MD on 09/14/192043 Transcribed By: ROBERT on 2043 COPY TO: ROSY BILLS DO
[2020-09-05] MEDS ORDERED: LYRICA75 MG PO (15:35)
[2020-09-05] MEDS ORDERED: ALLOPURINOL100 MG PO (15:35)
[2020-09-05] MEDS ORDERED: IOPAMIDOL 370 MG/ML 200 ML INFUS..BTL INJ ONE (15:44)
[2020-09-05] MEDS ORDERED: SODIUM CHLORIDE 0.9% 50ML 50 ML ONE (15:45)
--- NOTE | 2020-09-05 16:19 | Diagnostic Imaging Report ---
EXAM: CT Chest WITH intravenous contrast 09/05/2020 3:57 PM INDICATION: Neck pain COMPARISON: Chest radiograph 09/23/2019 TECHNIQUE: Chest was scanned utilizing a multidetector helical scanner from the lung apex through the level of the adrenal glands after administration of IV contrast. Coronal and sagittal reformations were obtained. Routine protocol was performed. IV CONTRAST: 100mL Isovue 370 RADIATION DOSE: Total DLP: 325 mGy*cm. Dose modulation, iterative reconstruction, and/or weight based adjustment of the mA/kV was utilized to reduce the radiation dose to as low as reasonably achievable. COMPLICATIONS: None FINDINGS: LINES/ TUBES: None. LUNGS AND AIRWAYS: The central airways are patent. No focal consolidation or pulmonary edema. Minimal dependent left lower lobe subsegmental atelectasis. PLEURA: The pleural spaces are clear. HEART AND MEDIASTINUM: The thyroid gland is normal. No mediastinal, hilar or axillary lymphadenopathy. The heart is normal in size.. There is no pericardial effusion. Scattered atherosclerotic calcifications involve the thoracic aorta, coronary arteries, and proximal great vessels. UPPER ABDOMEN: No acute findings in the upper abdomen. Diffuse hepatic steatosis. BONES: Old right seventh lateral rib fracture. No acute osseous injury. No suspicious lytic or blastic lesions. SOFT TISSUES: Unremarkable. IMPRESSION: No focal pneumonia or pulmonary edema. Diffuse hepatic steatosis. Signed by: Adina Randall MD on 09/05/2020 4:15 PM
[2020-09-05] MEDS ORDERED: KETOROLAC TROMETHAMINE 30 MG/ML VIAL IV ONE (16:30)
[2020-09-05] MEDS ORDERED: KETOROLAC TROMETHAMINE 30 MG/ML VIAL ONE (16:43)
--- NOTE | 2020-09-05 16:52 | Diagnostic Imaging Report ---
History: Right neck pain Comparison studies: None Technique: Axial, coronal and sagittal images from the skull base to the thoracic inlet. Coronal and sagittal images reconstructed from the axial data. Dose modulation, iterative reconstruction, and/or weight based adjustment of the mA/kV was utilized to reduce the radiation dose to as low as reasonably achievable. Intravenous contrast: 100 cc of Isovue-370. Findings: Soft tissues: No abnormalities. Specifically, no mass, inflammatory changes or fluid collection. Upper aerodigestive tract: No abnormalities. Lymph nodes: No radiographically significant adenopathy. Vessels: Patent carotid and vertebral arteries. Scattered calcified atherosclerosis. Patent bilateral internal jugular veins. Glands (thyroid, parotid and submandibular): Normal in size and symmetric. No masses. Orbits: No abnormalities. Paranasal sinuses: Mild mucosal thickening along the right max a sinus alveolar recess. Remaining sinuses are clear. Temporal bones: Chronic sclerotic inflammatory changes in the right mastoids which are also partially opacified. The bilateral middle ear and left mastoid cavities are clear. Skull base and facial bones: Intact. Cervical spine: Mild multilevel disc degeneration. Minimal anterolisthesis of C3 on C4. No significant canal stenosis. Multilevel uncovertebral and facet arthrosis result in multilevel foraminal stenosis which is mild on the right at C3-C4, mild bilaterally at C4-C5, and moderate right and mild to moderate on the left at C5-C6. IMPRESSION: 1. No acute abnormalities in the neck. 2. Degenerative changes in the cervical spine with moderate foraminal stenosis on the right at C5-C6. Signed by: Dr. Ba De La Torre M.D. on 09/05/2020 4:48 PM
[2020-09-05 16:53] VITALS: BP 155/72
== END 2020-09-05 16:46 | disposition home or self-care (01) ==
LOC: FSED 14:49
DX: M54.12 Radiculopathy, cervical region (principal)
CPT/HCPCS: 70491; 71260; 80053; 82553; 83880; 84484; 85025; 85379; 93005; 96374; 96375; 99284; J1885; J2270; J2405; J7030; Q9967

== ENCOUNTER 2020-09-10 03:42 | Inpatient (IN) | payer MEDICARE ==
[~2020-09-10] VITALS: Ht 175.3 cm; Wt 113.4 kg
[~2020-09-10 03:42] MED LIST changes: +ALLOPURINOL100 MG PO; +LYRICA75 MG PO
[2020-09-10] MEDS ORDERED: VANCOMYCIN 1GM/NS 250 ML 250 ML IV ONE (04:00)
[2020-09-10] MEDS ORDERED: PIPER-TAZ 3.375 GM 50 ML IV ONE (04:00)
[2020-09-10] MEDS ORDERED: ACETAMINOPHEN 325 MG TAB PO ONE (04:00)
--- NOTE | 2020-09-10 04:10 | Emergency Department Note ---
History of Present Illnes History of Present Illness Chief Complaint: Extremity Trauma/Pain History of Present Illness This is a 75 year old male c/o bilateral leg swelling after taking lyrica for pain to back, neck and arms for over a week. Patient states he was seen at an ER recently and given oral pain medication without relief. Patient denies fever or cough at home. pt with temp of 100.9 on arrival also c/o swelling and painto left foot and swelling and pain to right knee. Historian: Patient Arrival Mode: [place] Onset (how long ago): day(s) (3) Location: right foot, left knee Quality: pain, swelling, redness to right foot Radiation: Reports non-radiation Severity: moderate Onset quality: gradual Duration (how long): day(s) (3) Timing of current episode: constant Progression: worsening Chronicity: new Context: Reports other (started lyrica 3 days ago); Denies recent illness, Denies recent surgery Relieving factors: none Exacerbating factors: movement Associated symptoms: Reports denies other symptoms Treatments prior to arrival: none Past Medical/Family History Physician Review I have reviewed the patient's past medical and family history. Any updates have been documented here. Past Medical History Recent Fever: No Clinical Suspicion of Infectio: Yes New/Unexplained Change in Ment: No Past Medical History: Hypertension, Diabetes, COPD, CHF, A-Fib, Hyperlipedemia Other Medical History: gout Past Surgical History: Knee Replacement Other Surgery: right knee surgery Social History Smoking Cessation: Never Smoker Alcohol Use: Occasional Any Illegal Drug Use: No Family History Family history of heart diseas: Yes Other family history htn,dm Other Last Tetanus: UTD Review of Systems Review of Systems Constitutional: Reports no symptoms EENTM: Reports no symptoms Cardiovascular: Reports no symptoms Respiratory: Reports no symptoms Gastrointestinal: Reports no symptoms Genitourinary: Reports no symptoms Musculoskeletal: Reports as per HPI Integumentary: Reports as per HPI Neurological: Reports no symptoms Psychological: Reports no symptoms Endocrine: Reports no symptoms Hematological/Lymphatic: Reports no symptoms Physical Exam Related Data Allergies: Coded Allergies: No Known Allergies (Unverified , 04/02/17) Triage Vital Signs Vital Signs Date Time Temp Pulse Resp B/P (MAP) Pulse Ox O2 Delivery O2 Flow Rate FiO2 09/10/20 03:52 100.9 66 20 145/61 100 Room Air Vital signs reviewed: Yes Physical Exam CONSTITUTIONAL Constitutional: Present well-developed, Present well-nourished; Absent distressed HENT HENT: Present normocephalic, Present atraumatic, Present oropharynx clear/moist, Present nose normal HENT L/R: Present left ext ear normal, Present right ext ear normal EYES Eyes: Reports PERRL, Reports conjunctivae normal NECK Neck: Present ROM normal PULMONARY Pulmonary: Present effort normal, Present breath sounds normal CARDIOVASCULAR Cardiovascular: Present regular rhythm, Present heart sounds normal, Present capillary refill normal, Present normal rate GASTROINTESTINAL Abdominal: Present soft, Present nontender, Present bowel sounds normal GENITOURINARY Genitourinary: Present exam deferred SKIN Skin: Present warm, Present dry, Present erythema (to right foot, hot to touch) MUSCULOSKELETAL Musculoskeletal: Present ROM normal, Present swelling (left knee, no redness, no warmth) NEUROLOGICAL Neurological: Present alert, Present oriented x 3, Present no gross motor or sensory deficits PSYCHOLOGICAL Psychological: Present mood/affect normal, Present judgement normal Results Laboratory Laboratory Laboratory Tests Test 09/10/20 04:06 White Blood Count 7.75 x10e3/uL (4.8-10.8) Red Blood Count 3.18 x10e6/uL (4.3-5.7) Hemoglobin 10.8 g/dL (14.0-18.0) Hematocrit 34.2 % (38.2-49.6) Mean Corpuscular Volume 107.5 fL (81-99) Mean Corpuscular Hemoglobin 34.0 pg (28-32) Mean Corpuscular Hemoglobin Concent 31.6 g/dL (31-35) Red Cell Distribution Width 15.6 % (11.7-14.4) Platelet Count 225 x10e3/uL (140-360) Neutrophils (%) (Auto) 65.1 % (38.7-80.0) Lymphocytes (%) (Auto) 14.1 % (18.0-39.1) Monocytes (%) (Auto) 17.7 % (4.4-11.3) Eosinophils (%) (Auto) 1.7 % (0.0-6.0) Basophils (%) (Auto) 0.9 % (0.0-1.0) Neutrophils # (Auto) 5.1 (2.1-6.9) Lymphocytes # (Auto) 1.1 (1.0-3.2) Monocytes # (Auto) 1.4 (0.2-0.8) Eosinophils # (Auto) 0.1 (0.0-0.4) Basophils # (Auto) 0.1 (0.0-0.1) Absolute Immature Granulocyte (auto 0.04 x10e3/uL (0-0.1) Sodium Level 136 mmol/L (136-145) Potassium Level 4.6 mmol/L (3.5-5.1) Chloride Level 102 mmol/L (98-107) Carbon Dioxide Level 25 mmol/L (22-29) Anion Gap 13.6 mmol/L (8-16) Blood Urea Nitrogen 19 mg/dL (7-26) Creatinine 1.42 mg/dL (0.72-1.25) Estimat Glomerular Filtration Rate 49 ML/MIN (60-) BUN/Creatinine Ratio 13 (6-25) Glucose Level 96 mg/dL (74-118) Calcium Level 9.0 mg/dL (8.4-10.2) Total Bilirubin 0.5 mg/dL (0.2-1.2) Aspartate Amino Transf (AST/SGOT) 25 IU/L (5-34) Alanine Aminotransferase (ALT/SGPT) 24 IU/L (0-55) Alkaline Phosphatase 104 IU/L (40-150) Total Protein 7.1 g/dL (6.5-8.1) Albumin 2.9 g/dL (3.5-5.0) Globulin 4.2 g/dL (2.3-3.5) Albumin/Globulin Ratio 0.7 (0.8-2.0) Lab results reviewed: Yes Imaging Imaging results reviewed: Yes Assessment & Plan Medical Decision Making [facility] pt with fever, warmth, erythema, and swelling to left foot also with swelling to left knee cbc, bmp, cxr, ua, blood cultures ordered to eval for leukocytosis, pneumonia, uti, electrolyte abnormality zosyn 3.375 grams iv ordered vancomycin 1 gram iv ordered tylenol 650 mg po ordered Assessment & Plan Final Impression: (1) Fever (2) Cellulitis of left foot Depart Disposition: ADMITTED Last Vital Signs Date Time Temp Pulse Resp B/P (MAP) Pulse Ox O2 Delivery O2 Flow Rate FiO2 09/10/20 03:52 100.9 66 20 145/61 100 Room Air Home Meds Active Scripts Metoprolol Tartrate (LOPRESSOR) 25 Mg Tab, 12.5 MG PO Q12HR for 30 Days, #60 TAB Prov:SAVANAHCLIFTONADRIENNEBENNIE DUMONT 09/24/19 Apixaban (Eliquis) 5 Mg Tablet, 5 MG PO Q12HR for 30 Days, #60 Prov:BENNIE MARQUEZ [employer] SUR[employer] 09/24/19 Atorvastatin Calcium (ATORVASTATIN CALCIUM) 10 Mg Tablet, 10 MG PO 2100, #30 TAB Prov:SAVANAHRAOAtiyaBENNIE [place] SURVEYOR 09/24/19 Reported Medications Furosemide (FUROSEMIDE) 40 Mg Tablet, 20 MG PO Daily, #30 TAB 09/10/20 Levothyroxine Sodium (LEVOTHYROXINE SODIUM) 50 Mcg Tablet, 25 MCG PO DAILY, #30 TAB 09/10/20 Tizanidine Hcl (TIZANIDINE HCL) 4 Mg Capsule, 4 MG PO HS 09/10/20 Amiodarone HCl (Amiodarone HCl) 100 Mg Tablet, 200 MG PO DAILY 09/10/20 Pregabalin (LYRICA) 100 Mg Capsule, 100 MG PO BID, CAP 09/10/20 Allopurinol (ALLOPURINOL) 100 Mg Tablet, 100 MG PO DAILY, #30 TAB 09/05/20 Mesalamine (PENTASA) 500 Mg Capcr, 800 MG PO TID, CAP 09/15/19 Discontinued Reported Medications Pregabalin (LYRICA) 75 Mg Cap, 75 MG PO DAILY, #30 CAP 09/05/20 Discontinued Scripts Hydrochlorothiazide (HYDROCHLOROTHIAZIDE) 25 Mg Tablet, 25 MG PO DAILY, #30 TAB Prov:SAVANAHBENNIE DELA CRUZ [place] SURVEYOR 09/24/19 Amiodarone Hcl (AMIODARONE HCL) 200 Mg Tablet, 200 MG PO BID for 30 Days, #60 Prov:BENNIE MARQUEZ NP 09/24/19 Ferrous Sulfate (FERROUS SULFATE) 325 Mg Tablet, 325 MG PO DAILY for 30 Days, #30 Prov:BENNIE MARQUEZ NP 09/24/19 Vancomycin Hcl (VANCOCIN HCL) 250 Mg Capsule, 125 MG PO Q6HR for 1 Day, #5 Prov:BENNIE MARQUEZ NP 09/24/19 Medications in the ED Acetaminophen 650 mg ONCE ONCE PO ; Start 09/10/20 at 04:00; Stop 09/10/20 at 04:01; Status DC Piperacillin Sod/ Tazobactam Sod 50 ml @ 50 mls/hr NOW ONCE IV ; Start 09/10/20 at 04:00; Stop 09/10/20 at 04:59 Vancomycin HCl 250 ml @ 200 mls/hr NOW ONCE IV ; Start 09/10/20 at 04:00; Stop 09/10/20 at 05:14 JUANITO BURGOS MD Sep 10, 2020 04:10
[2020-09-10 04:12] LABS: BASOPHILS # (AUTO) 0.1 (0.0-0.1); BASOPHILS % 0.9 % (0.0-1.0); EOSINOPHILS # (AUTO) 0.1 (0.0-0.4); EOSINOPHILS % 1.7 % (0.0-6.0); HEMATOCRIT 34.2 % (38.2-49.6); HEMOGLOBIN 10.8 g/dL (14.0-18.0); LYMPHOCYTES # (AUTO) 1.1 (1.0-3.2); LYMPHOCYTES % 14.1 % (18.0-39.1); MEAN CORPUSCULAR HGB CONC 31.6 g/dL (31-35); MEAN CORPUSCULAR VOLUME 107.5 fL (81-99); MONOCYTES # (AUTO) 1.4 (0.2-0.8); MONOCYTES % 17.7 % (4.4-11.3); NEUTROPHILS # (AUTO) 5.1 (2.1-6.9); NEUTROPHILS % 65.1 % (38.7-80.0); PLATELET COUNT 225 x10e3/uL (140-360); RED BLOOD COUNT 3.18 x10e6/uL (4.3-5.7); RED CELL DISTRIBUTION WIDTH 15.6 % (11.7-14.4)
[2020-09-10 04:29] LABS: ALBUMIN 2.9 g/dL (3.5-5.0); ALBUMIN/GLOBULIN RATIO 0.7 (0.8-2.0); ANION GAP 13.6 mmol/L (8-16); CREATININE, SERUM 1.42 mg/dL (0.72-1.25); POTASSIUM 4.6 mmol/L (3.5-5.1)
[2020-09-10] MEDS ORDERED: TIZANIDINE HCL4 M1 PO (04:33)
[2020-09-10] MEDS ORDERED: LEVOTHYROXINE50 MCG PO (04:33)
[2020-09-10] MEDS ORDERED: FUROSEMIDE40 MG PO (04:33)
[2020-09-10] MEDS ORDERED: AMIODARONE HCL100 MG PO (04:33)
[2020-09-10] MEDS ORDERED: LYRICA100 MG PO (04:33)
--- NOTE | 2020-09-10 05:25 | Diagnostic Imaging Report ---
EXAMINATION: CHEST SINGLE (PORTABLE) INDICATION: ^Y ^fever ^[id number] ^0420 ^Y COMPARISON: Chest CT 09/05/2020, chest x-ray 09/23/2019 FINDINGS: TUBES and LINES: None. LUNGS: Normal lung volumes. Lungs are clear. No consolidations. PLEURA: No pleural effusion or pneumothorax. HEART AND MEDIASTINUM: The cardiomediastinal silhouette is unremarkable. There are atherosclerotic calcifications within the aorta. BONES AND SOFT TISSUES: No acute osseous lesion. Soft tissues are unremarkable. UPPER ABDOMEN: No free air under the diaphragm. IMPRESSION: No acute thoracic radiographic abnormality. Signed by: Marbin Chow DO on 09/10/2020 5:22 AM
[2020-09-10] MEDS ORDERED: ONDANSETRON HCL INJ 2MG/ML 2ML 2 MG/ML VIAL IV PRN (05:30)
[2020-09-10] MEDS ORDERED: VANCOMYCIN 1GM/NS 250 ML 250 ML IV SCH (05:30)
[2020-09-10] MEDS ORDERED: ACETAMINOPHEN 325 MG TAB PO PRN (05:30)
[2020-09-10] MEDS ORDERED: PIPERACILLIN/TAZO 2.25 GM 50 ML IV SCH (06:00)
--- NOTE | 2020-09-10 06:25 | NUR ---
Received patient from ER, welcomed and offered a bed, safety and fall precautions maintained as per hospital protocol. BED in lowest position and locked, needed items beside bed and call placed close to patient, patient is currently stable, will continue to monitor.
--- NOTE | 2020-09-10 07:00 | NUR ---
BEDSIDE SHIFT REPORT RECEIVED FROM THE VOLCANOLOGY PROFESSOR RN. EDUCATED PT ABOUT FALL PRECAUTIONS. PT VERBALIZED UNDERSTANDING. CALL LIGHT WITH IN EASY REACH. BED IS LOW AND LOCKED. SIDE RAILS X2. ALL SAFETY MEASURES IN PLACE. PT DENIES NEEDS AT THIS TIME. BED ALARM IS ON.
[2020-09-10] MEDS: MORPHINE SULFATE INJ 4 MG/ML INJ 1ML IV PRN ×2 (07:24→12:02)
[2020-09-10 08:00] VITALS: BP 155/56
[2020-09-10 08:18] VITALS: BP 155/56
[2020-09-10 08:20] VITALS: BP 155/56
[2020-09-10] MEDS ORDERED: CEPACOL SORE THROAT LOZENGES PO PRN (09:30)
[2020-09-10] MEDS: AMIODARONE HCL 200 MG TAB PO SCH (09:52)
[2020-09-10] MEDS: LACTOBACILLUS ACIDOPHILUS CAPSULE PO SCH ×3 (09:52→20:28)
[2020-09-10] MEDS: METOPROLOL TARTRATE 25 MG TAB PO SCH ×2 (09:53→20:29)
[2020-09-10] MEDS: ALLOPURINOL 100 MG TAB PO SCH (09:53)
[2020-09-10] MEDS: LEVOTHYROXINE SODIUM 25 MCG TABLET PO SCH (09:53)
[2020-09-10] MEDS: MESALAMINE 400 MG CAP PO SCH ×3 (09:53→20:28)
--- NOTE | 2020-09-10 10:00 | NUR ---
PAGED DR. MEANS REGARDING NEW CONSULT.
[2020-09-10 12:11] VITALS: BP 159/62
--- NOTE | 2020-09-10 13:28 | NUR ---
WOUND CARE CONSULT 75 YO MALE HX OF CELLULITIS LEFT FOOT AXEL 15 0N MODERATE PUP STATUS AND INTERVENTIONS ON ALTERNATING PRESSURE SURFACE LABS: WBC- 7.75 HGB- 10.8 GLUCOSE-96 HEAD TO TOE SKIN ASSESSMENT COMPLETE PATIENT PRESENTS WITH BILATERAL SWELLING IN LE NO OPEN AREAS OR DISCOLORATION NOTED RECOMMENDATIONS: NURSING TO CONTINUE TO MONITOR PATIENT AND KEEP SKIN CLEAN AND DRY CONTINUE TO FOLLOW MODERATE PUP STATUS AND INTERVENTIONS NURSING TO CONTINUE TO GET PATIENT OUT OF BED FOR MEALS AND MUCH TOLERATED Addendum: 09/10/20 at 1332 by Micheal Sabillon RN Amended: Links added.
[2020-09-10] MEDS: HYDROMORPHONE 1MG/1ML INJ IV PRN ×3 (15:05→21:15)
[2020-09-10 15:49] VITALS: BP 137/81
--- NOTE | 2020-09-10 18:33 | Diagnostic Imaging Report ---
X-ray 3 views of the right knee. HISTORY: Pain. COMPARISON: None available. FINDINGS/IMPRESSION: Bone/joints: Status post right total knee arthroplasty in anatomic alignment. No radiographic evidence of hardware complication. There is suprapatellar knee joint effusion. Soft tissues: Mild prepatellar soft tissue swelling. Signed by: Sultana Love MD on 09/10/2020 6:29 PM
--- NOTE | 2020-09-10 18:34 | Diagnostic Imaging Report ---
X-ray 3 views of the foot. HISTORY: Pain. COMPARISON: None available. FINDINGS/IMPRESSION: No acute fracture or dislocation. Mild to moderate degenerative changes of the first metatarsophalangeal joint and multiple interphalangeal joints. Multiple hammertoe deformities. Mild diffuse soft tissue swelling of indeterminate cause. Signed by: Sultana Love MD on 09/10/2020 6:31 PM
--- NOTE | 2020-09-10 18:37 | Diagnostic Imaging Report ---
X-ray 3 views of the foot HISTORY: Pain. COMPARISON: None available. FINDINGS/IMPRESSION: No acute fracture or dislocation. Severe degenerative changes of the first metatarsophalangeal joint. Mild degenerative changes of multiple interphalangeal joints. Hammertoe correction of the second digit. Hammertoe deformities of the 3rd-5th digits. Mild diffuse soft tissue swelling of indeterminate cause. Signed by: Sultana Love MD on 09/10/2020 6:34 PM
--- NOTE | 2020-09-10 19:07 | NUR ---
BEDSIDE SHIFT REPORT GIVEN TO THE HOTEL SERVICE SUPERVISOR RN. PT DENIED FURTHER NEEDS.
--- NOTE | 2020-09-10 19:49 | NUR ---
RECEIVED PATIENT IN BED AOX3 , RESP EVEN AND UNLABORED. NO ACUTE DISTRESS NOTED AT THIS TIME. ORIENTED TO ROOM. BILATERAL LOWER EXTREMITIES RT KNEE RED AND SWOLLEN LEFT AC 20G S/L CALL LIGHT WITH IN REACH ,CONTINUE TO MONITOR
[2020-09-10 20:05] VITALS: BP 137/81
[2020-09-10] MEDS: ATORVASTATIN 10 MG TAB PO SCH (20:27)
[2020-09-10] MEDS: TIZANIDINE HCL 4 MG TAB PO SCH (20:28)
--- NOTE | 2020-09-10 20:51 | NUR ---
ORTHOPEDIC CONSULATION Patient is a 75 year old male who presents to the hospital with a 3 day history of bilateral foot and right knee pain with an inability to ambulate. He denies any fevers or chills however states he was checked and he had a fever. He denies any numbness, paresthesias and loss of distal motor function. Pain localized mainly to right knee PMDHx: HTN, HLD, Gout, Heart Arrythmia SurgHx: Right Total Knee (Chantal Xie 12 years ago) Allerigies: NKDA FamHx: Non-contributory SocHx: Denies 98.1 HR 71 RR 18 BP 171/54 100% NAD, AAOx3 Right Knee - hot & swollen, moderate effusion Pain with PROM Motor: + EHL, FHL, TA, G/S Sensation grossly intac Pulses + DP, Post tib Compartments soft Negative calf tenderness Bilateral Feet - erythema noted, claw deformity of toes noted Xrays of Right Knee demonstrate hardware in good position, no fracture or dislocation. Effusion Bilateral Feet: No fracture or dislocation. Degenerative changes noted in first MTP with claw toe deformities WBC 7.75 75 year old male with foot cellulitis and concern for Right Periprosthetic Joint Infection vs Gout -Right knee aspirated and fluid sent for cell count, cultures, crystals, gram stain and glucose -Analgesics -Continue IV anibiotics -If infected, will likely require transfer to tertiary care center -DVT Prophylaxis -WBAT -Follow up knee aspiration labs and ESR & CRP Thank you for the consulation Celina Sykes, DO [facility] [place].
--- NOTE | 2020-09-10 22:02 | NUR ---
NOTIFIED DR HA THE B/P 102 /48 AND HR 44 . SAID TO WATCH AND NO NEW ORDER
[2020-09-10 22:38] LABS: BODY FLUID APPEARANCE TURBID; BODY FLUID COLOR YELLOW; BODY FLUID TYPE SYNOVIAL
[2020-09-10 22:39] LABS: LYMPHOCYTES,BODY FLUID 4 %; MONO/MACROPHG,BODY FLUID 2 %; NEUTROPHILS,BODY FLUID 94 %; RBC,BODY FLUID 55 cells/uL; WBC,BODY FLUID 28930 cells/uL
[2020-09-11] VITALS (8 sets, daily range): BP systolic 105–164; BP diastolic 38–76
--- NOTE | 2020-09-11 00:39 | History and Physical ---
CHIEF COMPLAINT: Foot pain. HISTORY OF PRESENT ILLNESS: This is a 75-year-old male, who developed some neck pain, was given Lyrica, which has helped with his neck pain; however, subsequently the patient developed foot pain and severe right knee pain. The patient has had knee surgery previously. The patient denies any fever. He reports the right foot is more painful than the left foot. According to the emergency room doctor, his foot was red in the middle of the night; however, since then, the patient has received IV antibiotics and the legs have been elevated. So, currently there is no obvious redness. The patient has had gout attack in the past. He stated that this is different. Potentially, at this time, the patient may be having fever, chill, or it could just be from severe right knee pain. The knee is swollen as well. Denies chest pain. No shortness of breath. No nausea, vomiting. PAST MEDICAL AND SURGICAL HISTORY: 1. Crohn disease per report. 2. Hypertension. 3. Hyperlipidemia. 4. Hip and knee surgery. MEDICATIONS: Please see medication reconciliation form. ALLERGIES: NONE. SOCIAL HISTORY: Still smokes. FAMILY HISTORY: Hypertension. REVIEW OF SYSTEMS: A 10-point review of system obtained and nothing else is significant other than what is stated in HPI. PHYSICAL EXAMINATION: VITAL SIGNS: Temperature 98.1, pulse 68, respiratory rate 18, blood pressure 137/81. GENERAL: No acute distress. SKIN: No rash. HEENT: Anicteric. Oropharynx is clear. LUNGS: Clear. HEART: Regular rate and rhythm. Normal S1, S2. GI: Abdomen soft, nondistended, nontender. NEUROLOGIC: Alert and oriented x3. Cranial nerves II through XII grossly intact. PSYCHIATRIC: No hallucination. MUSCULOSKELETAL: Painless range of motion. LABORATORY DATA: White count 8, hemoglobin 11, platelet count 225. Creatinine 1.4, which is his baseline. ASSESSMENT AND PLAN: 1. Right foot pain and severe right knee pain with knee effusion. We will change his IV morphine to IV Dilaudid as needed. We will continue IV vancomycin. We will consult Orthopedic Surgery for further evaluation. 2. Stage 3 chronic kidney disease, stable. 3. Previous history of Clostridium difficile. We will start probiotics. 4. Gastrointestinal and deep venous thrombosis prophylaxis. Erasmo is still in his system. We will resume if we note that he does not need any procedures or surgery done. 5. Crohn disease. We will continue his mesalamine. 6. Atrial fibrillation. Continue amiodarone and metoprolol. Again, we will resume Eliquis if able. Yiching MD DEB Fernández/NICK /[id number]
[2020-09-11] MEDS: HYDROMORPHONE 1MG/1ML INJ IV PRN ×5 (04:45→17:35)
--- NOTE | 2020-09-11 05:50 | NUR ---
DR QUACH DID I &D RT KNEE ,PT C/O PAIN GIVEN ORDERED PAIN MEDICATION ,CALL LIGHT WITH IN REACH ,CONTINUE TO MONITOR
[2020-09-11] MEDS: VANCOMYCIN 1GM/NS 250 ML 250 ML IV SCH (05:55)
[2020-09-11 06:25] LABS: BASOPHILS % 0.5 % (0.0-1.0); EOSINOPHILS # (AUTO) 0.3 (0.0-0.4); EOSINOPHILS % 2.9 % (0.0-6.0); HEMATOCRIT 31.3 % (38.2-49.6); HEMOGLOBIN 10.1 g/dL (14.0-18.0); LYMPHOCYTES # (AUTO) 0.7 (1.0-3.2); LYMPHOCYTES % 8.1 % (18.0-39.1); MEAN CORPUSCULAR HEMOGLOBIN 34.5 pg (28-32); MEAN CORPUSCULAR HGB CONC 32.3 g/dL (31-35); MEAN CORPUSCULAR VOLUME 106.8 fL (81-99); MONOCYTES # (AUTO) 1.2 (0.2-0.8); MONOCYTES % 14.5 % (4.4-11.3); NEUTROPHILS # (AUTO) 6.2 (2.1-6.9); NEUTROPHILS % 73.4 % (38.7-80.0); PLATELET COUNT 213 x10e3/uL (140-360); RED BLOOD COUNT 2.93 x10e6/uL (4.3-5.7); RED CELL DISTRIBUTION WIDTH 15.3 % (11.7-14.4)
[2020-09-11] MEDS: LEVOTHYROXINE SODIUM 25 MCG TABLET PO SCH (06:33)
--- NOTE | 2020-09-11 07:00 | NUR ---
BEDSIDE SHIFT REPORT RECEIVED FROM THE CULTURE MEDIA LABORATORY ASSISTANT RN. EDUCATED PT ABOUT FALL PRECAUTIONS. PT VERBALIZED UNDERSTANDING. CALL LIGHT WITH IN EASY REACH. BED IS LOW AND LOCKED. SIDE RAILS X2. ALL SAFETY MEASURES IN PLACE. PT DENIES NEEDS AT THIS TIME.
[2020-09-11 07:11] LABS: PLATELET ESTIMATE ADEQUATE; PLATELET MORPHOLOGY COMMENT FEW GIANT; RBC MORPHOLOGY COMMENT NORMAL
--- NOTE | 2020-09-11 07:12 | NUR ---
BEDSIDE REPORT GIVEN TO THE ONCOMING NURSE
[2020-09-11 07:13] LABS: ALBUMIN 2.6 g/dL (3.5-5.0); ALBUMIN/GLOBULIN RATIO 0.8 (0.8-2.0); ANION GAP 16.4 mmol/L (8-16); CALCIUM 8.1 mg/dL (8.4-10.2); CREATININE, SERUM 1.36 mg/dL (0.72-1.25); POTASSIUM 4.4 mmol/L (3.5-5.1)
[2020-09-11] MEDS: AMIODARONE HCL 200 MG TAB PO SCH (08:52)
[2020-09-11] MEDS: METOPROLOL TARTRATE 25 MG TAB PO SCH ×2 (08:53→21:00)
[2020-09-11] MEDS: ALLOPURINOL 100 MG TAB PO SCH (08:53)
[2020-09-11] MEDS: LACTOBACILLUS ACIDOPHILUS CAPSULE PO SCH ×3 (08:53→21:48)
[2020-09-11] MEDS: MESALAMINE 400 MG CAP PO SCH ×3 (08:53→21:48)
--- NOTE | 2020-09-11 11:24 | NUR ---
Spoke to pt at bedside regarding transfer. Pt states he does not think he needs surgery right now and does not see the point in transferring. Wants to talk to MD today prior to making decision. Dr. Gardner notified.
[2020-09-11 11:33] LABS: CLARITY,URINE CLEAR (CLEAR); COLOR,URINE YELLOW (YELLOW); KETONES,URINE NEGATIVE (NEGATIVE); LEUKOCYTE ESTERASE ,URINE NEGATIVE (NEGATIVE); NITRITE,URINE NEGATIVE (NEGATIVE); PROTEIN,URINE DIPSTICK 1+ (NEGATIVE); URINE UROBILINOGEN 0.2 mg/dL (0.2 - 1)
[2020-09-11 11:34] LABS: BILIRUBIN,URINE 1+ (NEGATIVE)
[2020-09-11 11:55] LABS: BACTERIA,URINE MODERATE /HPF; RBC,URINE 0-5 /HPF (0-5); WBC,URINE (MAN) 0-5 /HPF (0-5)
[2020-09-11 11:56] LABS: EPITHELIAL CELLS,URINE FEW /LPF
--- NOTE | 2020-09-11 13:16 | NUR ---
Spoke with Dr. Gardner, states pt is agreeable to transfer now. CM back to pt's bedside. Pt gave choice for [facility]. Copy of choice letter given to pt. Signed copy placed in front of chart. CM called and spoke to Blake at transfer center [phone]. Initiated transfer. Faxed FS, H&P, progress note and COVID test results to [phone], as requested. Gave her Dr. Gardner's number for doc to doc and also nurses station phone number.
--- NOTE | 2020-09-11 16:12 | NUR ---
Dr. Gardner did doc to doc. MOT initiated and placed with packet at nurses station
[2020-09-11] MEDS ORDERED: ONDANSETRON HCL 4 MG ORAL DISINTEGRATING TAB PO PRN (17:00)
--- NOTE | 2020-09-11 18:30 | NUR ---
PT C/O LEFT KNEE PAIN AND SWELLING. PAGED DR. DE LUNA AND REPORTED THE SAME.
--- NOTE | 2020-09-11 19:00 | NUR ---
BEDSIDE SHIFT REPORT GIVEN TO THE NATURAL RESOURCES PROFESSOR RN. PT DENIED FURTHER NEEDS.
--- NOTE | 2020-09-11 19:53 | NUR ---
RECEIVED PATIENT IN BED AOX2 , RESP EVEN AND UNLABORED. RT KNEE WITH DRESSING AND NOW LEFT KNEE SWOLLEN RED AND LEFT AC AND RT AC 20G S/L CALL LIGHT WITH IN REACH ,CONTINUE TO MONITOR
--- NOTE | 2020-09-11 21:20 | Progress Note ---
DATE: 09/11/2020 SUBJECTIVE: Still with severe right knee pain. OBJECTIVE: VITAL SIGNS: Temperature 98.7, pulse 67, respiratory rate 20, blood pressure 164/66. GENERAL: Right knee pain. SKIN: No rash. LUNGS: Decreased breath sounds at the bases. HEART: Regular rate and rhythm. Normal S1 and S2. GI: Abdomen is soft, obese. NEUROLOGIC: Alert and oriented x3. PSYCHIATRIC: No hallucination. MUSCULOSKELETAL: Decreased range of motion of his right knee. LABORATORY DATA: White count 8.5, hemoglobin 10, and platelet count 213. ESR is 100. Creatinine is 1.4, which is his baseline. ASSESSMENT AND PLAN: 1. Presumed right septic knee. I have discussed with Orthopedics twice over the phone. Right now, it looks like we are dealing with a septic joint with almost 30,000 wbc from the joint effusion with 94% neutrophils. We will transfer the patient to the original Orthopedic Surgery for likely intraoperative washout. We will continue IV vancomycin. I have discussed this case with the accepting hospitalist over at [facility] at the [facility]. We will continue IV Dilaudid as needed. 2. Stage 3 chronic kidney disease, stable at his baseline. 3. Previous history of Clostridium difficile colitis. We will continue probiotics while he is on antibiotics. 4. Crohn's disease. We will continue mesalamine. 5. Atrial fibrillation. We will continue metoprolol and amiodarone. We will continue to hold his Eliquis since he may need surgery. 6. Gastrointestinal and deep venous thrombosis prophylaxis. Again, we will continue to hold Eliquis since he may need surgery. MD DEB Rust/NICK /[id number]
[2020-09-11] MEDS: ATORVASTATIN 10 MG TAB PO SCH (21:46)
[2020-09-11] MEDS: TIZANIDINE HCL 4 MG TAB PO SCH (21:48)
[2020-09-12 00:29] VITALS: BP 116/54
[2020-09-12 04:00] VITALS: BP 132/55
[2020-09-12] MEDS: VANCOMYCIN 1GM/NS 250 ML 250 ML IV SCH (05:13)
[2020-09-12] MEDS: HYDROMORPHONE 1MG/1ML INJ IV PRN ×3 (05:17→11:43)
[2020-09-12] MEDS: LEVOTHYROXINE SODIUM 25 MCG TABLET PO SCH (06:21)
[2020-09-12 06:29] LABS: BASOPHILS % 0.3 % (0.0-1.0); EOSINOPHILS # (AUTO) 0.1 (0.0-0.4); EOSINOPHILS % 0.7 % (0.0-6.0); HEMATOCRIT 29.6 % (38.2-49.6); HEMOGLOBIN 9.7 g/dL (14.0-18.0); LYMPHOCYTES # (AUTO) 0.8 (1.0-3.2); LYMPHOCYTES % 8.5 % (18.0-39.1); MEAN CORPUSCULAR HEMOGLOBIN 34.4 pg (28-32); MEAN CORPUSCULAR HGB CONC 32.8 g/dL (31-35); MONOCYTES # (AUTO) 1.2 (0.2-0.8); MONOCYTES % 13.8 % (4.4-11.3); NEUTROPHILS # (AUTO) 6.7 (2.1-6.9); NEUTROPHILS % 76.1 % (38.7-80.0); PLATELET COUNT 208 x10e3/uL (140-360); RED BLOOD COUNT 2.82 x10e6/uL (4.3-5.7); RED CELL DISTRIBUTION WIDTH 14.8 % (11.7-14.4)
--- NOTE | 2020-09-12 06:40 | NUR ---
NOTIFIED DR QUACH ABOUT LEFT SWELLING NO ORDER GIVEN ,INITIATE TRANSFER TO [facility] ,C/O PAIN AND GIVEN DILAUDID ,ORDER TO TRANSFER THE PT TO [facility] ,
[2020-09-12 07:06] LABS: ANION GAP 15.2 mmol/L (8-16); CALCIUM 8.4 mg/dL (8.4-10.2); CREATININE, SERUM 1.33 mg/dL (0.72-1.25); POTASSIUM 4.2 mmol/L (3.5-5.1)
--- NOTE | 2020-09-12 07:15 | NUR ---
BEDSIDE SHIFT REPORT RECEIVED FROM THE INVOICE CLASSIFICATION CLERK RN. EDUCATED PT ABOUT FALL PRECAUTIONS. CALL LIGHT WITH IN EASY REACH. INSTRUCTED PT TO USE CALL LIGHT FOR ALL THE NEEDS. PT VERBALIZED UNDERSTANDING. BED IS LOW AND LOCKED. SIDE RAILS X2. BED ALARM IS ON. PT DENIES NEEDS AT THIS TIME.
--- NOTE | 2020-09-12 07:30 | NUR ---
BEDSIDE REPORT GIVEN TO THE ONCOMING NURSE.
[2020-09-12 07:54] VITALS: BP 140/62
[2020-09-12 08:21] VITALS: BP 140/62
[2020-09-12] MEDS: AMIODARONE HCL 200 MG TAB PO SCH (08:31)
[2020-09-12] MEDS: METOPROLOL TARTRATE 25 MG TAB PO SCH (08:32)
[2020-09-12] MEDS: LACTOBACILLUS ACIDOPHILUS CAPSULE PO SCH (08:32)
[2020-09-12] MEDS: MESALAMINE 400 MG CAP PO SCH (08:32)
[2020-09-12] MEDS: ALLOPURINOL 100 MG TAB PO SCH (08:32)
--- NOTE | 2020-09-12 08:40 | NUR ---
CALL RECEIVED FROM [facility] TRANSFER [place]. HOLD THE TRANSFER TILL SHE CALL BACK TO FIND OUT THE PT ROOM AND UNIT. REPORTED THE SAME TO DRUM DRIER OPERATOR.
[2020-09-12 11:44] VITALS: BP 141/62
--- NOTE | 2020-09-12 11:45 | NUR ---
CALL RECEIVED FROM [facility]. PRICE TO TRANSFER PT. TRANSFER REPORT GIVEN TO SHAWN PRETTY. PT IS TRANSFERRING TO ROOM 1001
--- NOTE | 2020-09-12 11:54 | NUR ---
RECEIVED CD FROM [facility]IOLOGY AND PLACED INSIDE TRANSFER PACKET.
--- NOTE | 2020-09-12 14:03 | NUR ---
PT TRANSFERRED TO [facility]IA [facility]. IV IN PLACE PER THE REQUEST FROM SUKHWINDER ESCOBAR FOR FUTURE USE. TELE REMOVED. PT DENIED FURTHER NEEDS.
--- NOTE | 2020-09-13 02:46 | Discharge Summary ---
FINAL DIAGNOSIS: Presumed right septic knee. SECONDARY DIAGNOSES: 1. Crohn's disease. 2. Hypertension. 3. Previous right knee replacement. 4. Stage 3 chronic kidney disease. 5. Previous history of Clostridium difficile. 6. Atrial fibrillation. SOLE STITCHER HAND: Dr. Sykes, Orthopedic surgeon. PROCEDURES/STUDIES PERFORMED: Right knee arthrocentesis. HISTORY: Per dictated H and P. HOSPITAL COURSE: The patient was admitted with severe right knee pain. He was given IV Dilaudid for pain. His ESR is 100. His C-reactive protein was 263. His joint fluid has a white blood cell count of 28,130, with 94% neutrophils and the glucose was 56 concerning for septic knee especially with previous right knee replacement. The patient was transferred to [facility], where his original orthopedic doctor is Dr. Davie Robertson. CONDITION ON DISCHARGE: Higher level care. DISCHARGE MEDICATIONS: Please see medication reconciliation form. YiMD DEB De La Cruz/NICK /[id number]
== END 2020-09-12 14:03 | DRG 549 ==
LOC: ER 03:45 → ERHOLD 05:34 → MED/SURG3 06:20
PROVIDERS: ADMIT Internal Medicine; ATTEND Internal Medicine
DX: M00.9 Pyogenic arthritis, unspecified (principal); K50.90 Crohn's disease, unspecified, without complications; M25.461 Effusion, right knee; I48.91 Unspecified atrial fibrillation; N18.30 Chronic kidney disease, stage 3 unspecified; I10 Essential (primary) hypertension; Z96.651 Presence of right artificial knee joint; I12.9 Hypertensive chronic kidney disease with stage 1 through stage 4 chronic kidney disease, or unspecified chronic kidney disease; Z79.01 Long term (current) use of anticoagulants; E78.5 Hyperlipidemia, unspecified
CPT/HCPCS: 36415; 71045; 80048; 80053; 81001; 82945; 85025; 85651; 86140; 87040; 87070; 87086; 87205; 89051; 89060; 99251; 99284; J1170; J2270; J2543; J3370; U0002

== ENCOUNTER 2021-02-25 09:31 | Emergency (ER) | payer MEDICARE ==
[~2021-02-25] VITALS: Ht 175.3 cm; Wt 131.5 kg
[~2021-02-25 09:31] MED LIST changes: +AMIODARONE HCL100 MG PO; +FUROSEMIDE40 MG PO; +LEVOTHYROXINE50 MCG PO; +LYRICA100 MG PO; +TIZANIDINE HCL4 M1 PO
[2021-02-25] MEDS ORDERED: POTASSIUM CHLORIDE 20 MEQ TAB CR PO STA (10:53)
[2021-02-25] MEDS ORDERED: POTASSIUM CHLORIDE 20 MEQ TAB CR PO ONE (11:14)
== END 2021-02-25 11:59 | disposition home or self-care (01) ==
LOC: FSED 10:08
DX: R60.9 Edema, unspecified (principal); E87.6 Hypokalemia; R94.31 Abnormal electrocardiogram [ECG] [EKG]; I10 Essential (primary) hypertension; E11.9 Type 2 diabetes mellitus without complications; E78.5 Hyperlipidemia, unspecified; J44.9 Chronic obstructive pulmonary disease, unspecified; I50.9 Heart failure, unspecified; I48.91 Unspecified atrial fibrillation; M10.9 Gout, unspecified; F17.210 Nicotine dependence, cigarettes, uncomplicated
CPT/HCPCS: 93005; 93971; 99283

== ENCOUNTER 2021-03-17 16:13 | Inpatient (IN) | payer MEDICARE ==
[~2021-03-17] VITALS: Ht 175.3 cm; Wt 131.5 kg
[2021-03-17 17:24] LABS: BASOPHILS # (AUTO) 0.1 (0.0-0.1); BASOPHILS % 1.1 % (0.0-1.0); EOSINOPHILS # (AUTO) 0.2 (0.0-0.4); EOSINOPHILS % 3.3 % (0.0-6.0); HEMATOCRIT 29.9 % (38.2-49.6); HEMOGLOBIN 10.3 g/dL (14.0-18.0); LYMPHOCYTES # (AUTO) 0.7 (1.0-3.2); LYMPHOCYTES % 14.2 % (18.0-39.1); MEAN CORPUSCULAR HEMOGLOBIN 34.2 pg (28-32); MEAN CORPUSCULAR HGB CONC 34.4 g/dL (31-35); MEAN CORPUSCULAR VOLUME 99.3 fL (81-99); MONOCYTES # (AUTO) 0.8 (0.2-0.8); MONOCYTES % 15.9 % (4.4-11.3); NEUTROPHILS # (AUTO) 3.4 (2.1-6.9); NEUTROPHILS % 64.4 % (38.7-80.0); PLATELET COUNT 180 x10e3/uL (140-360); RED BLOOD COUNT 3.01 x10e6/uL (4.3-5.7); RED CELL DISTRIBUTION WIDTH 15.7 % (11.7-14.4)
[2021-03-17] MEDS ORDERED: MULTIVITAMINS- 12 INJECTION 10 ML, FOLIC ACID MDV 5 MG, THIAMINE HCL INJ 100 MG in SODI... IV ONE (17:30)
[2021-03-17 17:44] LABS: ALBUMIN 3.1 g/dL (3.5-5.0); ALBUMIN/GLOBULIN RATIO 1.1 (0.8-2.0); ANION GAP 21.2 mmol/L (8-16); CALCIUM 8.4 mg/dL (8.4-10.2); CREATININE, SERUM 2.46 mg/dL (0.72-1.25); MAGNESIUM 1.3 MG/DL (1.3-2.1); POTASSIUM 3.2 mmol/L (3.5-5.1)
[2021-03-17] MEDS ORDERED: ONDANSETRON HCL INJ 2MG/ML 2ML 2 MG/ML VIAL IV PRN (19:30)
[2021-03-17] MEDS ORDERED: DEXTROSE 50% SYRINGE 50 ML IV PRN (19:30)
[2021-03-17] MEDS ORDERED: ASPIRIN 81 MG CHEW TAB PO ONE (19:30)
[2021-03-17 19:47] LABS: CREATINE KINASE MB 3.5 ng/mL (0-5.0)
[2021-03-17] MEDS: INSULIN REGULAR, HUMAN 100 UNIT/1 ML 3ML VIAL SQ SCH (21:00)
[2021-03-17] MEDS: CHLORDIAZEPOXIDE HCL 25 MG CAP PO SCH (21:34)
[2021-03-18 02:32] LABS: CREATINE KINASE MB 3.4 ng/mL (0-5.0)
[2021-03-18] MEDS: CHLORDIAZEPOXIDE HCL 25 MG CAP PO SCH ×5 (04:16→23:33)
[2021-03-18 05:43] LABS: BASOPHILS # (AUTO) 0.1 (0.0-0.1); EOSINOPHILS # (AUTO) 0.2 (0.0-0.4); EOSINOPHILS % 4.5 % (0.0-6.0); HEMOGLOBIN 10.4 g/dL (14.0-18.0); MEAN CORPUSCULAR HEMOGLOBIN 35.5 pg (28-32); MEAN CORPUSCULAR HGB CONC 34.7 g/dL (31-35); MEAN CORPUSCULAR VOLUME 102.4 fL (81-99); MONOCYTES # (AUTO) 0.9 (0.2-0.8); MONOCYTES % 18.3 % (4.4-11.3); NEUTROPHILS # (AUTO) 2.7 (2.1-6.9); PLATELET COUNT 147 x10e3/uL (140-360); RED BLOOD COUNT 2.93 x10e6/uL (4.3-5.7)
[2021-03-18 05:47] LABS: AMPHETAMINES SCREEN,URINE NEGATIVE (NEGATIVE); BENZODIAZEPINES SCREEN,URINE NEGATIVE (NEGATIVE); CLARITY,URINE SL CLOUDY (CLEAR); COLOR,URINE YELLOW (YELLOW); KETONES,URINE NEGATIVE (NEGATIVE); LEUKOCYTE ESTERASE ,URINE NEGATIVE (NEGATIVE); NITRITE,URINE NEGATIVE (NEGATIVE); PHENCYCLIDINE SCREEN,URINE NEGATIVE (NEGATIVE); PROTEIN,URINE DIPSTICK NEGATIVE (NEGATIVE)
[2021-03-18 06:00] LABS: ANION GAP 19.4 mmol/L (8-16); CALCIUM 8.2 mg/dL (8.4-10.2); CREATININE, SERUM 2.49 mg/dL (0.72-1.25); POTASSIUM 3.4 mmol/L (3.5-5.1)
[2021-03-18 06:01] LABS: BACTERIA,URINE MANY /HPF; EPITHELIAL CELLS,URINE FEW /LPF; TRANSITIONAL EPI CELLS,URINE FEW
[2021-03-18] MEDS: INSULIN REGULAR, HUMAN 100 UNIT/1 ML 3ML VIAL SQ SCH (07:30)
[2021-03-18 08:00] VITALS: BP 98/58
[2021-03-18] MEDS ORDERED: LOSARTAN POTAS100 MG PO (08:23)
[2021-03-18] MEDS ORDERED: VITAMIN D350 MCG PO (08:23)
[2021-03-18] MEDS ORDERED: TERAZOSIN HCL1 MG PO (08:29)
[2021-03-18 09:03] VITALS: BP 98/58
[2021-03-18 11:12] LABS: CREATINE KINASE MB 3.2 ng/mL (0-5.0)
[2021-03-18 12:00] VITALS: BP 104/74
[2021-03-18] MEDS ORDERED: POTASSIUM CHLORIDE 20 MEQ TAB CR PO ONE (12:00)
[2021-03-18] MEDS ORDERED: MAGNESIUM SULFATE 2GM/50ML 50 ML IV ONE (12:00)
[2021-03-18 14:50] LABS: CREATININE,URINE RANDOM 193.89 mg/dL (63-166)
[2021-03-18 14:51] LABS: SODIUM,URINE < 20 mmol/L
[2021-03-18 16:10] VITALS: BP 119/55
[2021-03-18] MEDS: MESALAMINE 400 MG CAP PO SCH ×2 (16:21→21:09)
[2021-03-18] MEDS ORDERED: PNEUMOCOCCAL VACCINE POLYVALENT 23 MCG/0.5 ML VIAL IM ONE (17:00)
[2021-03-18] MEDS ORDERED: SODIUM CHLORIDE 0.9% 1000ML 1,000 ML IV SCH (18:00)
[2021-03-18 20:00] VITALS: BP 128/55
[2021-03-18 21:02] VITALS: BP 128/55
[2021-03-18] MEDS: ATORVASTATIN 10 MG TAB PO SCH (21:09)
[2021-03-18] MEDS: TIZANIDINE HCL 4 MG TAB PO SCH (21:10)
[2021-03-19] VITALS (9 sets, daily range): BP systolic 83–123; BP diastolic 44–87
[2021-03-19 05:01] LABS: EOSINOPHILS # (AUTO) 0.3 (0.0-0.4); EOSINOPHILS % 6.5 % (0.0-6.0); HEMATOCRIT 28.3 % (38.2-49.6); HEMOGLOBIN 9.5 g/dL (14.0-18.0); LYMPHOCYTES # (AUTO) 0.9 (1.0-3.2); LYMPHOCYTES % 22.5 % (18.0-39.1); MEAN CORPUSCULAR HEMOGLOBIN 33.9 pg (28-32); MEAN CORPUSCULAR HGB CONC 33.6 g/dL (31-35); MEAN CORPUSCULAR VOLUME 101.1 fL (81-99); MONOCYTES # (AUTO) 0.6 (0.2-0.8); MONOCYTES % 13.3 % (4.4-11.3); NEUTROPHILS # (AUTO) 2.3 (2.1-6.9); NEUTROPHILS % 55.5 % (38.7-80.0); PLATELET COUNT 155 x10e3/uL (140-360); RED CELL DISTRIBUTION WIDTH 15.6 % (11.7-14.4)
[2021-03-19 05:23] LABS: INR 0.98; PROTHROMBIN TIME 13.6 seconds (11.9-14.5)
[2021-03-19 05:24] LABS: PARTIAL THROMBOPLASTIN TIME 32.2 seconds (23.8-35.5)
[2021-03-19 05:39] LABS: PHOSPHORUS 3.5 MG/DL (2.3-4.7)
[2021-03-19 05:40] LABS: ALBUMIN 2.7 g/dL (3.5-5.0); ANION GAP 15.5 mmol/L (8-16); BILIRUBIN,DIRECT 1.1 mg/dL (0.0-0.5); CALCIUM 8.3 mg/dL (8.4-10.2); CREATININE, SERUM 2.42 mg/dL (0.72-1.25); MAGNESIUM 1.8 MG/DL (1.3-2.1); POTASSIUM 3.5 mmol/L (3.5-5.1)
[2021-03-19 05:49] LABS: THYROID STIMULATING HORMONE 3.84 uIU/mL (0.350-4.940)
[2021-03-19] MEDS: CHLORDIAZEPOXIDE HCL 25 MG CAP PO SCH (06:13)
[2021-03-19] MEDS: LEVOTHYROXINE SODIUM 25 MCG TABLET PO SCH (06:13)
[2021-03-19] MEDS ORDERED: SODIUM CHLORIDE 0.9% 1000ML 1,000 ML ONE (07:37)
[2021-03-19] MEDS ORDERED: SODIUM CHLORIDE 0.9% 500ML 500 ML IV ONE (07:45)
[2021-03-19] MEDS: AMIODARONE HCL 200 MG TAB PO SCH (09:00)
[2021-03-19] MEDS ORDERED: ENOXAPARIN 30 MG/0.3 ML SYR SC SCH (09:00)
[2021-03-19] MEDS ORDERED: ONDANSETRON HCL INJ 2MG/ML 2ML 2 MG/ML VIAL IV PRN (09:30)
[2021-03-19] MEDS: ALLOPURINOL 100 MG TAB PO SCH (10:30)
[2021-03-19] MEDS: MESALAMINE 400 MG CAP PO SCH ×3 (10:30→21:56)
[2021-03-19] MEDS ORDERED: SODIUM CHLORIDE 0.9% 1000ML 1,000 ML IV ONE (10:55)
[2021-03-19] MEDS: THIAMINE HCL IV SCH (15:53)
[2021-03-19] MEDS: MULTIVITAMINS IV SCH (15:53)
[2021-03-19] MEDS: [UNRECOGNIZED DRUG - OTHER] IV SCH (15:53)
[2021-03-19] MEDS: CHLORDIAZEPOXIDE HCL 25 MG CAP PO PRN (16:02)
[2021-03-19] MEDS: APIXABAN 5 MG TABLET PO SCH (16:03)
[2021-03-19] MEDS: TIZANIDINE HCL 4 MG TAB PO SCH (21:56)
[2021-03-19] MEDS: ATORVASTATIN 10 MG TAB PO SCH (21:56)
[2021-03-20] VITALS (8 sets, daily range): BP systolic 91–144; BP diastolic 40–123
[2021-03-20] MEDS: THIAMINE HCL IV SCH ×3 (01:13→18:24)
[2021-03-20] MEDS: MULTIVITAMINS IV SCH ×3 (01:13→18:24)
[2021-03-20] MEDS: [UNRECOGNIZED DRUG - OTHER] IV SCH ×3 (01:13→18:24)
[2021-03-20] MEDS: LEVOTHYROXINE SODIUM 25 MCG TABLET PO SCH (05:08)
[2021-03-20 05:27] LABS: BASOPHILS % 0.6 % (0.0-1.0); EOSINOPHILS # (AUTO) 0.3 (0.0-0.4); EOSINOPHILS % 4.1 % (0.0-6.0); HEMATOCRIT 27.4 % (38.2-49.6); LYMPHOCYTES % 14.5 % (18.0-39.1); MEAN CORPUSCULAR HEMOGLOBIN 33.6 pg (28-32); MEAN CORPUSCULAR HGB CONC 32.8 g/dL (31-35); MEAN CORPUSCULAR VOLUME 102.2 fL (81-99); MONOCYTES # (AUTO) 0.7 (0.2-0.8); MONOCYTES % 11.3 % (4.4-11.3); NEUTROPHILS # (AUTO) 4.5 (2.1-6.9); NEUTROPHILS % 68.1 % (38.7-80.0); PLATELET COUNT 142 x10e3/uL (140-360); RED BLOOD COUNT 2.68 x10e6/uL (4.3-5.7); RED CELL DISTRIBUTION WIDTH 15.9 % (11.7-14.4)
[2021-03-20 05:47] LABS: ANION GAP 16.2 mmol/L (8-16); CALCIUM 7.8 mg/dL (8.4-10.2); CREATININE, SERUM 2.17 mg/dL (0.72-1.25); POTASSIUM 3.2 mmol/L (3.5-5.1)
[2021-03-20] MEDS: ALLOPURINOL 100 MG TAB PO SCH (08:43)
[2021-03-20] MEDS: MESALAMINE 400 MG CAP PO SCH ×3 (08:43→21:00)
[2021-03-20] MEDS: AMIODARONE HCL 200 MG TAB PO SCH (08:43)
[2021-03-20] MEDS: APIXABAN 5 MG TABLET PO SCH ×2 (08:43→16:51)
[2021-03-20] MEDS: CHLORDIAZEPOXIDE HCL 25 MG CAP PO PRN (09:00)
[2021-03-20] MEDS ORDERED: POTASSIUM CHLORIDE 20MEQ/100ML 200 ML IV ONE (10:45)
[2021-03-20 11:55] LABS: CLARITY,URINE CLOUDY (CLEAR); COLOR,URINE BROWN (YELLOW); KETONES,URINE 1+ (NEGATIVE); LEUKOCYTE ESTERASE ,URINE LARGE (NEGATIVE); NITRITE,URINE POSITIVE (NEGATIVE); PROTEIN,URINE DIPSTICK >=300 (NEGATIVE)
[2021-03-20] MEDS ORDERED: LORAZEPAM INJ 2 MG/ML VIAL IV ONE (12:00)
[2021-03-20] MEDS ORDERED: POTASSIUM CHLORIDE 10MEQ EA PO ONE (12:15)
[2021-03-20 12:16] LABS: BACTERIA,URINE MANY /HPF; EPITHELIAL CELLS,URINE FEW /LPF; RBC,URINE >50 /HPF (0-5); WBC,URINE (MAN) >50 /HPF (0-5)
[2021-03-20 12:17] LABS: AMORPHOUS SEDIMENT,URINE MANY (FEW)
[2021-03-20 12:44] LABS: ABG HCO3 28 mmol/L (22-26); ABG PCO2 40 mmHg (35-45); ABG PH 7.45 (7.35-7.45); ABG PO2 51 mmHg (80-105); ABG TCO2 29
[2021-03-20] MEDS: TIZANIDINE HCL 4 MG TAB PO SCH (21:00)
[2021-03-20] MEDS: ATORVASTATIN 10 MG TAB PO SCH (21:00)
[2021-03-20] MEDS ORDERED: ALBUMIN 25% 12.5GM 0.25 GM/ML BTL IV ONE (21:15)
[2021-03-20] MEDS ORDERED: SODIUM CHLORIDE 0.9% 1000ML 1,000 ML IV SCH ×2 (21:15→22:15)
[2021-03-20] MEDS: CEFEPIME 1 GM in SODIUM CHLORIDE 0.9% 50ML 50 ML IV SCH (21:39)
[2021-03-21] VITALS (16 sets, daily range): BP systolic 103–188; BP diastolic 45–167
[2021-03-21] MEDS: CHLORDIAZEPOXIDE HCL 25 MG CAP PO PRN ×2 (01:15→20:13)
[2021-03-21] MEDS: THIAMINE HCL IV SCH ×2 (01:55→14:02)
[2021-03-21] MEDS: [UNRECOGNIZED DRUG - OTHER] IV SCH ×2 (01:55→14:02)
[2021-03-21] MEDS: MULTIVITAMINS IV SCH ×2 (01:55→14:02)
[2021-03-21 05:34] LABS: BASOPHILS % 0.5 % (0.0-1.0); EOSINOPHILS # (AUTO) 0.3 (0.0-0.4); EOSINOPHILS % 4.6 % (0.0-6.0); HEMATOCRIT 28.3 % (38.2-49.6); HEMOGLOBIN 9.3 g/dL (14.0-18.0); LYMPHOCYTES % 13.5 % (18.0-39.1); MEAN CORPUSCULAR HEMOGLOBIN 33.9 pg (28-32); MEAN CORPUSCULAR HGB CONC 32.9 g/dL (31-35); MEAN CORPUSCULAR VOLUME 103.3 fL (81-99); MONOCYTES # (AUTO) 0.9 (0.2-0.8); MONOCYTES % 12.4 % (4.4-11.3); PLATELET COUNT 152 x10e3/uL (140-360); RED BLOOD COUNT 2.74 x10e6/uL (4.3-5.7); RED CELL DISTRIBUTION WIDTH 16.5 % (11.7-14.4)
[2021-03-21 05:53] LABS: ALBUMIN 2.7 g/dL (3.5-5.0); ANION GAP 13.7 mmol/L (8-16); BILIRUBIN,DIRECT 1.4 mg/dL (0.0-0.5); CREATININE, SERUM 2.23 mg/dL (0.72-1.25); POTASSIUM 3.7 mmol/L (3.5-5.1)
[2021-03-21] MEDS: LEVOTHYROXINE SODIUM 25 MCG TABLET PO SCH (06:06)
[2021-03-21] MEDS: CEFEPIME 1 GM in SODIUM CHLORIDE 0.9% 50ML 50 ML IV SCH ×2 (09:25→20:13)
[2021-03-21] MEDS: ALLOPURINOL 100 MG TAB PO SCH (09:25)
[2021-03-21] MEDS: APIXABAN 5 MG TABLET PO SCH ×2 (09:25→17:03)
[2021-03-21] MEDS: AMIODARONE HCL 200 MG TAB PO SCH (09:25)
[2021-03-21] MEDS: MESALAMINE 400 MG CAP PO SCH ×3 (09:31→20:13)
[2021-03-21] MEDS: TIZANIDINE HCL 4 MG TAB PO SCH (20:13)
[2021-03-21] MEDS: ATORVASTATIN 10 MG TAB PO SCH (20:13)
[2021-03-22] VITALS (10 sets, daily range): BP systolic 99–181; BP diastolic 52–96
[2021-03-22] MEDS: THIAMINE HCL IV SCH (03:11)
[2021-03-22] MEDS: MULTIVITAMINS IV SCH (03:11)
[2021-03-22] MEDS: [UNRECOGNIZED DRUG - OTHER] IV SCH (03:11)
[2021-03-22] MEDS: LEVOTHYROXINE SODIUM 25 MCG TABLET PO SCH (06:19)
[2021-03-22] MEDS: CEFEPIME 1 GM in SODIUM CHLORIDE 0.9% 50ML 50 ML IV SCH ×2 (08:10→20:28)
[2021-03-22] MEDS: AMIODARONE HCL 200 MG TAB PO SCH (08:11)
[2021-03-22] MEDS: APIXABAN 5 MG TABLET PO SCH ×2 (08:11→17:01)
[2021-03-22] MEDS: MESALAMINE 400 MG CAP PO SCH ×3 (08:11→20:28)
[2021-03-22] MEDS: ALLOPURINOL 100 MG TAB PO SCH (08:11)
[2021-03-22] MEDS: CHLORDIAZEPOXIDE HCL 25 MG CAP PO PRN (20:28)
[2021-03-22] MEDS: TIZANIDINE HCL 4 MG TAB PO SCH (20:28)
[2021-03-22] MEDS: ATORVASTATIN 10 MG TAB PO SCH (20:28)
[2021-03-23] VITALS (8 sets, daily range): BP systolic 95–124; BP diastolic 50–65
[2021-03-23 05:24] LABS: BASOPHILS % 0.8 % (0.0-1.0); EOSINOPHILS # (AUTO) 0.3 (0.0-0.4); EOSINOPHILS % 5.3 % (0.0-6.0); HEMATOCRIT 28.2 % (38.2-49.6); HEMOGLOBIN 9.2 g/dL (14.0-18.0); LYMPHOCYTES # (AUTO) 0.7 (1.0-3.2); LYMPHOCYTES % 14.4 % (18.0-39.1); MEAN CORPUSCULAR HEMOGLOBIN 34.1 pg (28-32); MEAN CORPUSCULAR HGB CONC 32.6 g/dL (31-35); MEAN CORPUSCULAR VOLUME 104.4 fL (81-99); MONOCYTES # (AUTO) 0.9 (0.2-0.8); MONOCYTES % 17.3 % (4.4-11.3); NEUTROPHILS # (AUTO) 3.1 (2.1-6.9); NEUTROPHILS % 60.6 % (38.7-80.0); PLATELET COUNT 142 x10e3/uL (140-360); RED CELL DISTRIBUTION WIDTH 17.6 % (11.7-14.4)
[2021-03-23 05:54] LABS: ALBUMIN 2.4 g/dL (3.5-5.0); ANION GAP 14.8 mmol/L (8-16); CALCIUM 7.9 mg/dL (8.4-10.2); CREATININE, SERUM 2.3 mg/dL (0.72-1.25); POTASSIUM 3.8 mmol/L (3.5-5.1)
[2021-03-23] MEDS: LEVOTHYROXINE SODIUM 25 MCG TABLET PO SCH (06:13)
[2021-03-23] MEDS ORDERED: ONDANSETRON HCL 4 MG ORAL DISINTEGRATING TAB PO PRN (07:30)
[2021-03-23] MEDS: CEFEPIME 1 GM in SODIUM CHLORIDE 0.9% 50ML 50 ML IV SCH ×2 (08:47→20:35)
[2021-03-23] MEDS: MESALAMINE 400 MG CAP PO SCH ×3 (08:48→20:35)
[2021-03-23] MEDS: APIXABAN 5 MG TABLET PO SCH ×2 (08:48→17:20)
[2021-03-23] MEDS: AMIODARONE HCL 200 MG TAB PO SCH (08:48)
[2021-03-23] MEDS: ALLOPURINOL 100 MG TAB PO SCH (08:48)
[2021-03-23] MEDS: [UNRECOGNIZED DRUG - OTHER] IV SCH (17:00)
[2021-03-23] MEDS: THIAMINE HCL IV SCH (17:00)
[2021-03-23] MEDS: MULTIVITAMINS IV SCH (17:00)
[2021-03-23] MEDS: FUROSEMIDE 40 MG TAB PO SCH (17:20)
[2021-03-23] MEDS: ATORVASTATIN 10 MG TAB PO SCH (20:35)
[2021-03-23] MEDS: TIZANIDINE HCL 4 MG TAB PO SCH (20:46)
[2021-03-23] MEDS: CHLORDIAZEPOXIDE HCL 25 MG CAP PO PRN (20:46)
[2021-03-24] VITALS (8 sets, daily range): BP systolic 94–123; BP diastolic 40–62
[2021-03-24] MEDS: MULTIVITAMINS IV SCH ×2 (03:27→15:55)
[2021-03-24] MEDS: [UNRECOGNIZED DRUG - OTHER] IV SCH ×2 (03:27→15:55)
[2021-03-24] MEDS: THIAMINE HCL IV SCH ×2 (03:27→15:55)
[2021-03-24] MEDS: ACETAMINOPHEN 325 MG TAB PO PRN (04:34)
[2021-03-24] MEDS: FUROSEMIDE 40 MG TAB PO SCH ×2 (06:04→16:22)
[2021-03-24] MEDS: LEVOTHYROXINE SODIUM 25 MCG TABLET PO SCH (06:04)
[2021-03-24 06:10] LABS: ANION GAP 15.1 mmol/L (8-16); CALCIUM 8.2 mg/dL (8.4-10.2); CREATININE, SERUM 2.49 mg/dL (0.72-1.25); POTASSIUM 4.1 mmol/L (3.5-5.1)
[2021-03-24] MEDS: AMIODARONE HCL 200 MG TAB PO SCH (08:18)
[2021-03-24] MEDS: MESALAMINE 400 MG CAP PO SCH ×3 (08:18→21:38)
[2021-03-24] MEDS: CEFEPIME 1 GM in SODIUM CHLORIDE 0.9% 50ML 50 ML IV SCH ×2 (08:18→21:38)
[2021-03-24] MEDS: APIXABAN 5 MG TABLET PO SCH ×2 (08:18→16:22)
[2021-03-24] MEDS: ALLOPURINOL 100 MG TAB PO SCH (08:20)
[2021-03-24 18:13] LABS: CLARITY,URINE SL CLOUDY (CLEAR); COLOR,URINE YELLOW (YELLOW); KETONES,URINE NEGATIVE (NEGATIVE); LEUKOCYTE ESTERASE ,URINE SMALL (NEGATIVE); NITRITE,URINE NEGATIVE (NEGATIVE); PROTEIN,URINE DIPSTICK TRACE (NEGATIVE); URINE UROBILINOGEN 0.2 mg/dL (0.2 - 1)
[2021-03-24 18:24] LABS: BACTERIA,URINE RARE /HPF; WBC,URINE (MAN) 0-5 /HPF (0-5)
[2021-03-24] MEDS: ATORVASTATIN 10 MG TAB PO SCH (21:38)
[2021-03-24] MEDS: TIZANIDINE HCL 4 MG TAB PO SCH (21:38)
[2021-03-25] VITALS (9 sets, daily range): BP systolic 110–140; BP diastolic 43–59
[2021-03-25 05:18] LABS: BASOPHILS # (AUTO) 0.1 (0.0-0.1); BASOPHILS % 0.8 % (0.0-1.0); EOSINOPHILS # (AUTO) 0.3 (0.0-0.4); EOSINOPHILS % 4.8 % (0.0-6.0); HEMATOCRIT 27.3 % (38.2-49.6); HEMOGLOBIN 8.8 g/dL (14.0-18.0); LYMPHOCYTES # (AUTO) 0.7 (1.0-3.2); MEAN CORPUSCULAR HEMOGLOBIN 33.5 pg (28-32); MEAN CORPUSCULAR HGB CONC 32.2 g/dL (31-35); MEAN CORPUSCULAR VOLUME 103.8 fL (81-99); MONOCYTES # (AUTO) 1.5 (0.2-0.8); MONOCYTES % 23.2 % (4.4-11.3); NEUTROPHILS # (AUTO) 3.7 (2.1-6.9); NEUTROPHILS % 58.8 % (38.7-80.0); PLATELET COUNT 167 x10e3/uL (140-360); RED BLOOD COUNT 2.63 x10e6/uL (4.3-5.7)
[2021-03-25 05:40] LABS: ALBUMIN 2.3 g/dL (3.5-5.0); ALBUMIN/GLOBULIN RATIO 0.7 (0.8-2.0); ANION GAP 14.1 mmol/L (8-16); CALCIUM 8.2 mg/dL (8.4-10.2); CREATININE, SERUM 2.59 mg/dL (0.72-1.25); POTASSIUM 4.1 mmol/L (3.5-5.1)
[2021-03-25] MEDS: FUROSEMIDE 40 MG TAB PO SCH ×2 (06:41→17:45)
[2021-03-25] MEDS: LEVOTHYROXINE SODIUM 25 MCG TABLET PO SCH (06:41)
[2021-03-25 08:50] LABS: EOSINOPHILS % (MANUAL) 6 % (0-7); LYMPHOCYTES % (MANUAL) 10 % (19-48); MONOCYTES % (MANUAL) 17 % (3.4-9.0); NEUTROPHILS % (MANUAL) 67 % (40-74)
[2021-03-25 08:52] LABS: PLATELET ESTIMATE ADEQUATE; PLATELET MORPHOLOGY COMMENT NORMAL; RBC MORPHOLOGY COMMENT NORMAL
[2021-03-25] MEDS: APIXABAN 5 MG TABLET PO SCH ×2 (09:41→17:45)
[2021-03-25] MEDS: MESALAMINE 400 MG CAP PO SCH ×3 (09:41→20:49)
[2021-03-25] MEDS: AMIODARONE HCL 200 MG TAB PO SCH (09:41)
[2021-03-25] MEDS: CEFEPIME 1 GM in SODIUM CHLORIDE 0.9% 50ML 50 ML IV SCH (09:41)
[2021-03-25] MEDS: ALLOPURINOL 100 MG TAB PO SCH (09:41)
[2021-03-25] MEDS: TIZANIDINE HCL 4 MG TAB PO SCH (20:49)
[2021-03-25] MEDS: ATORVASTATIN 10 MG TAB PO SCH (20:49)
[2021-03-26] VITALS (7 sets, daily range): BP systolic 128–170; BP diastolic 54–71
[2021-03-26 06:20] LABS: ANION GAP 16.1 mmol/L (8-16); CREATININE, SERUM 2.64 mg/dL (0.72-1.25); POTASSIUM 4.1 mmol/L (3.5-5.1)
[2021-03-26] MEDS: LEVOTHYROXINE SODIUM 25 MCG TABLET PO SCH (06:20)
[2021-03-26] MEDS: FUROSEMIDE 40 MG TAB PO SCH ×2 (06:20→16:50)
[2021-03-26] MEDS: AMIODARONE HCL 200 MG TAB PO SCH (08:50)
[2021-03-26] MEDS: THIAMINE HCL 100 MG TAB PO SCH (08:51)
[2021-03-26] MEDS: APIXABAN 5 MG TABLET PO SCH ×2 (08:51→16:50)
[2021-03-26] MEDS: FOLIC ACID 1 MG TAB PO SCH (08:51)
[2021-03-26] MEDS: ALLOPURINOL 100 MG TAB PO SCH (08:51)
[2021-03-26] MEDS: MESALAMINE 400 MG CAP PO SCH ×3 (08:51→21:36)
[2021-03-26] MEDS ORDERED: METHYLPREDNISOLONE SOD SUCC 40 MG/ML VIAL 1ML IV ONE (11:30)
[2021-03-26] MEDS: ATORVASTATIN 10 MG TAB PO SCH (21:36)
[2021-03-26] MEDS: TIZANIDINE HCL 4 MG TAB PO SCH (21:37)
[2021-03-27] VITALS (8 sets, daily range): BP systolic 152–171; BP diastolic 60–78
[2021-03-27] MEDS: FUROSEMIDE 40 MG TAB PO SCH (06:08)
[2021-03-27] MEDS: LEVOTHYROXINE SODIUM 25 MCG TABLET PO SCH (06:08)
[2021-03-27 06:31] LABS: ANION GAP 17.6 mmol/L (8-16); CALCIUM 8.7 mg/dL (8.4-10.2); CREATININE, SERUM 2.6 mg/dL (0.72-1.25); POTASSIUM 4.6 mmol/L (3.5-5.1)
[2021-03-27] MEDS: MESALAMINE 400 MG CAP PO SCH ×3 (08:40→21:00)
[2021-03-27] MEDS: AMIODARONE HCL 200 MG TAB PO SCH (08:40)
[2021-03-27] MEDS: FOLIC ACID 1 MG TAB PO SCH (08:40)
[2021-03-27] MEDS: ALLOPURINOL 100 MG TAB PO SCH (08:40)
[2021-03-27] MEDS: THIAMINE HCL 100 MG TAB PO SCH (08:40)
[2021-03-27] MEDS: APIXABAN 5 MG TABLET PO SCH ×2 (08:40→18:08)
[2021-03-27] MEDS ORDERED: DEXTROSE 5%/0.9% SOD CHL 1,000 ML IV SCH (10:00)
[2021-03-27] MEDS ORDERED: FUROSEMIDE INJ 10 MG/ML 4 ML VIAL IV ONE (11:50)
[2021-03-27] MEDS ORDERED: METHYLPREDNISOLONE SOD SUCC 40 MG/ML VIAL 1ML IV ONE (12:00)
[2021-03-27 12:11] LABS: ABG HCO3 25 mmol/L (22-26); ABG PCO2 37 mmHg (35-45); ABG PH 7.44 (7.35-7.45); ABG PO2 94 mmHg (80-105); ABG TCO2 26
[2021-03-27] MEDS: MEGACE 400MG/ 10ML CUP PO SCH (13:22)
[2021-03-27] MEDS: PIPERACILLIN/TAZOBACTAM 3.375 GM in SODIUM CHLORIDE 0.9% 50ML 50 ML IV SCH ×2 (13:33→21:00)
[2021-03-27] MEDS: MODAFINIL 100 MG TAB PO SCH (13:35)
[2021-03-27 15:58] LABS: ABG HCO3 24 mmol/L (22-26); ABG PCO2 32 mmHg (35-45); ABG PH 7.49 (7.35-7.45); ABG PO2 91 mmHg (80-105); ABG TCO2 25
[2021-03-27] MEDS ORDERED: COLCHICINE0.6 M1 PO (16:41)
[2021-03-27] MEDS ORDERED: MEGACE 400MG/ 10ML CUP PO SCH (16:45)
[2021-03-27] MEDS: TIZANIDINE HCL 4 MG TAB PO SCH (21:00)
[2021-03-27] MEDS: ATORVASTATIN 10 MG TAB PO SCH (21:00)
[2021-03-27] MEDS: FUROSEMIDE INJ 10 MG/ML 4 ML VIAL IV SCH (22:00)
[2021-03-28] VITALS: BP 129/46
[2021-03-28 04:00] VITALS: BP 155/56
[2021-03-28] MEDS: LEVOTHYROXINE SODIUM 25 MCG TABLET PO SCH (05:37)
[2021-03-28] MEDS: FUROSEMIDE INJ 10 MG/ML 4 ML VIAL IV SCH ×2 (05:37→12:30)
[2021-03-28 06:49] LABS: BASOPHILS % 0.3 % (0.0-1.0); HEMATOCRIT 26.2 % (38.2-49.6); HEMOGLOBIN 8.5 g/dL (14.0-18.0); LYMPHOCYTES # (AUTO) 0.8 (1.0-3.2); LYMPHOCYTES % 8.7 % (18.0-39.1); MEAN CORPUSCULAR HGB CONC 32.4 g/dL (31-35); MEAN CORPUSCULAR VOLUME 104.8 fL (81-99); MONOCYTES # (AUTO) 0.5 (0.2-0.8); MONOCYTES % 5.2 % (4.4-11.3); NEUTROPHILS # (AUTO) 8.1 (2.1-6.9); PLATELET COUNT 236 x10e3/uL (140-360); RED CELL DISTRIBUTION WIDTH 17.9 % (11.7-14.4)
[2021-03-28 07:15] LABS: ALBUMIN 1.8 g/dL (3.5-5.0); ALBUMIN/GLOBULIN RATIO 0.4 (0.8-2.0); ANION GAP 16.2 mmol/L (8-16); CALCIUM 8.6 mg/dL (8.4-10.2); CREATININE, SERUM 3.8 mg/dL (0.72-1.25); POTASSIUM 4.2 mmol/L (3.5-5.1)
[2021-03-28 07:50] VITALS: BP 153/49
[2021-03-28] MEDS: AMIODARONE HCL 200 MG TAB PO SCH (07:57)
[2021-03-28 09:29] VITALS: BP 153/49
[2021-03-28] MEDS: THIAMINE HCL 100 MG TAB PO SCH (10:00)
[2021-03-28] MEDS: APIXABAN 5 MG TABLET PO SCH ×2 (10:00→18:32)
[2021-03-28] MEDS: ALLOPURINOL 100 MG TAB PO SCH (10:00)
[2021-03-28] MEDS: MODAFINIL 100 MG TAB PO SCH (10:00)
[2021-03-28] MEDS: MEGACE 400MG/ 10ML CUP PO SCH (10:00)
[2021-03-28] MEDS: FOLIC ACID 1 MG TAB PO SCH (10:00)
[2021-03-28] MEDS: MESALAMINE 400 MG CAP PO SCH ×3 (10:00→20:38)
[2021-03-28] MEDS ORDERED: Vancomycin IV 1 GM in SODIUM CHLORIDE 0.9% 250ML 250 ML IV ONE (10:30)
[2021-03-28 11:46] VITALS: BP 142/64
[2021-03-28] MEDS ORDERED: MEROPENEM 500 MG in SODIUM CHLORIDE 0.9% 50ML 50 ML IV SCH (14:00)
[2021-03-28 16:42] VITALS: BP 145/55
[2021-03-28] MEDS: ATORVASTATIN 10 MG TAB PO SCH (20:37)
[2021-03-28] MEDS: ACETAMINOPHEN 325 MG TAB PO PRN (20:37)
[2021-03-29] VITALS: BP 133/70
[2021-03-29 05:31] LABS: BASOPHILS # (AUTO) 0.1 (0.0-0.1); BASOPHILS % 0.6 % (0.0-1.0); EOSINOPHILS # (AUTO) 0.4 (0.0-0.4); EOSINOPHILS % 4.3 % (0.0-6.0); HEMATOCRIT 27.8 % (38.2-49.6); HEMOGLOBIN 9.3 g/dL (14.0-18.0); LYMPHOCYTES # (AUTO) 0.6 (1.0-3.2); LYMPHOCYTES % 6.8 % (18.0-39.1); MEAN CORPUSCULAR HEMOGLOBIN 33.7 pg (28-32); MEAN CORPUSCULAR HGB CONC 33.5 g/dL (31-35); MEAN CORPUSCULAR VOLUME 100.7 fL (81-99); MONOCYTES # (AUTO) 0.3 (0.2-0.8); MONOCYTES % 3.3 % (4.4-11.3); NEUTROPHILS # (AUTO) 7.8 (2.1-6.9); NEUTROPHILS % 84.6 % (38.7-80.0); PLATELET COUNT 315 x10e3/uL (140-360); RED BLOOD COUNT 2.76 x10e6/uL (4.3-5.7); RED CELL DISTRIBUTION WIDTH 17.9 % (11.7-14.4)
[2021-03-29 05:51] LABS: ALBUMIN 1.9 g/dL (3.5-5.0); ALBUMIN/GLOBULIN RATIO 0.5 (0.8-2.0); ANION GAP 16.8 mmol/L (8-16); CALCIUM 8.7 mg/dL (8.4-10.2); CREATININE, SERUM 4.44 mg/dL (0.72-1.25); POTASSIUM 3.8 mmol/L (3.5-5.1)
[2021-03-29] MEDS: LEVOTHYROXINE SODIUM 25 MCG TABLET PO SCH (05:52)
[2021-03-29] MEDS: ALLOPURINOL 100 MG TAB PO SCH (09:45)
[2021-03-29] MEDS: MEGACE 400MG/ 10ML CUP PO SCH (09:45)
[2021-03-29] MEDS: MESALAMINE 400 MG CAP PO SCH ×3 (09:45→20:15)
[2021-03-29] MEDS: AMIODARONE HCL 200 MG TAB PO SCH (09:45)
[2021-03-29] MEDS: APIXABAN 5 MG TABLET PO SCH ×2 (09:45→16:26)
[2021-03-29] MEDS: FOLIC ACID 1 MG TAB PO SCH (09:45)
[2021-03-29] MEDS: MODAFINIL 100 MG TAB PO SCH (09:45)
[2021-03-29] MEDS: THIAMINE HCL 100 MG TAB PO SCH (09:45)
[2021-03-29] MEDS: FUROSEMIDE INJ 10 MG/ML 4 ML VIAL IV SCH (13:00)
[2021-03-29] MEDS: KETOCONAZOLE 2% SHAMPOO 4OZ BTL TOP SCH (14:50)
[2021-03-29] MEDS: SODIUM CHLORIDE 0.9% 1000ML 1,000 ML IV SCH ×2 (16:30→23:15)
[2021-03-29] MEDS: ATORVASTATIN 10 MG TAB PO SCH (20:15)
[2021-03-30 04:52] LABS: BASOPHILS # (AUTO) 0.1 (0.0-0.1); BASOPHILS % 0.8 % (0.0-1.0); EOSINOPHILS # (AUTO) 0.7 (0.0-0.4); EOSINOPHILS % 9.5 % (0.0-6.0); HEMOGLOBIN 8.1 g/dL (14.0-18.0); MEAN CORPUSCULAR HEMOGLOBIN 33.5 pg (28-32); MEAN CORPUSCULAR HGB CONC 32.4 g/dL (31-35); MEAN CORPUSCULAR VOLUME 103.3 fL (81-99); MONOCYTES # (AUTO) 0.5 (0.2-0.8); MONOCYTES % 6.1 % (4.4-11.3); NEUTROPHILS # (AUTO) 5.1 (2.1-6.9); NEUTROPHILS % 69.1 % (38.7-80.0); PLATELET COUNT 288 x10e3/uL (140-360); RED BLOOD COUNT 2.42 x10e6/uL (4.3-5.7); RED CELL DISTRIBUTION WIDTH 17.8 % (11.7-14.4)
[2021-03-30] MEDS: LEVOTHYROXINE SODIUM 25 MCG TABLET PO SCH (05:02)
[2021-03-30 05:16] LABS: ALBUMIN 1.9 g/dL (3.5-5.0); ALBUMIN/GLOBULIN RATIO 0.5 (0.8-2.0); ANION GAP 18.2 mmol/L (8-16); CALCIUM 8.3 mg/dL (8.4-10.2); CREATININE, SERUM 4.85 mg/dL (0.72-1.25); POTASSIUM 4.2 mmol/L (3.5-5.1)
[2021-03-30] MEDS: AMIODARONE HCL 200 MG TAB PO SCH (08:29)
[2021-03-30] MEDS: FUROSEMIDE INJ 10 MG/ML 4 ML VIAL IV SCH (08:29)
[2021-03-30] MEDS: APIXABAN 5 MG TABLET PO SCH (08:29)
[2021-03-30] MEDS: MEGACE 400MG/ 10ML CUP PO SCH (08:30)
[2021-03-30] MEDS: ALLOPURINOL 100 MG TAB PO SCH (08:30)
[2021-03-30] MEDS: MODAFINIL 100 MG TAB PO SCH (08:30)
[2021-03-30] MEDS: FOLIC ACID 1 MG TAB PO SCH (08:30)
[2021-03-30] MEDS: THIAMINE HCL 100 MG TAB PO SCH (08:30)
[2021-03-30] MEDS: MESALAMINE 400 MG CAP PO SCH ×3 (08:30→21:00)
[2021-03-30] MEDS: SODIUM CHLORIDE 0.9% 1000ML 1,000 ML IV SCH ×2 (08:31→19:15)
[2021-03-30] MEDS: KETOCONAZOLE 2% SHAMPOO 4OZ BTL TOP SCH (11:30)
[2021-03-30] MEDS ORDERED: LIDOCAINE HCL 1% LOCAL INJ 20 ML VIAL ONE (11:42)
[2021-03-30] MEDS ORDERED: HEPARIN SOD (PORCINE) 1000 UNIT/ML SDV ONE ×2 (13:48→17:50)
[2021-03-30] MEDS ORDERED: MANNITOL 25% 12.5GM/50ML 50 ML ONE ×2 (17:48→17:49)
[2021-03-30] MEDS: ATORVASTATIN 10 MG TAB PO SCH (21:00)
[2021-03-30] MEDS ORDERED: METOPROLOL SUCCINATE 50 MG TAB XL ONE (23:55)
[2021-03-31 04:00] VITALS: BP_SYST 147; BP_SYST 170; BP_DIAS 64; BP_DIAS 74
[2021-03-31] MEDS: SODIUM CHLORIDE 0.9% 1000ML 1,000 ML IV SCH ×2 (05:15→15:15)
[2021-03-31] MEDS: LEVOTHYROXINE SODIUM 25 MCG TABLET PO SCH (06:00)
[2021-03-31] MEDS: MEGACE 400MG/ 10ML CUP PO SCH (09:00)
[2021-03-31] MEDS: FUROSEMIDE INJ 10 MG/ML 4 ML VIAL IV SCH (09:00)
[2021-03-31] MEDS: FOLIC ACID 1 MG TAB PO SCH (09:00)
[2021-03-31] MEDS: MESALAMINE 400 MG CAP PO SCH ×4 (09:00→20:40)
[2021-03-31] MEDS: ALLOPURINOL 100 MG TAB PO SCH (09:00)
[2021-03-31] MEDS: AMIODARONE HCL 200 MG TAB PO SCH (09:00)
[2021-03-31] MEDS: THIAMINE HCL 100 MG TAB PO SCH (09:00)
[2021-03-31] MEDS: MODAFINIL 100 MG TAB PO SCH (09:00)
[2021-03-31] MEDS ORDERED: METOPROLOL SUCCINATE 50 MG TAB XL ONE ×2 (09:39→19:34)
[2021-03-31] MEDS: KETOCONAZOLE 2% SHAMPOO 4OZ BTL TOP SCH (11:30)
[2021-03-31 12:08] LABS: RED BLOOD COUNT 2.61 x10e6/uL (4.3-5.7)
[2021-03-31 12:09] LABS: BASOPHILS # (AUTO) 0.1 (0.0-0.1); BASOPHILS % 0.9 % (0.0-1.0); EOSINOPHILS # (AUTO) 0.7 (0.0-0.4); HEMATOCRIT 27.2 % (38.2-49.6); LYMPHOCYTES # (AUTO) 0.9 (1.0-3.2); LYMPHOCYTES % 11.8 % (18.0-39.1); MEAN CORPUSCULAR HEMOGLOBIN 34.5 pg (28-32); MEAN CORPUSCULAR HGB CONC 33.1 g/dL (31-35); MEAN CORPUSCULAR VOLUME 104.2 fL (81-99); MONOCYTES # (AUTO) 0.5 (0.2-0.8); NEUTROPHILS % 71.8 % (38.7-80.0); PLATELET COUNT 357 x10e3/uL (140-360); RED CELL DISTRIBUTION WIDTH 17.5 % (11.7-14.4)
[2021-03-31 12:14] LABS: ALBUMIN 2.1 g/dL (3.5-5.0); ALBUMIN/GLOBULIN RATIO 0.5 (0.8-2.0); ANION GAP 17.1 mmol/L (8-16); CALCIUM 8.4 mg/dL (8.4-10.2); CREATININE, SERUM 4.05 mg/dL (0.72-1.25); POTASSIUM 4.1 mmol/L (3.5-5.1)
[2021-03-31] MEDS ORDERED: SODIUM CHLORIDE 0.9% 1000ML 2,000 ML IV PRN (13:30)
[2021-03-31] MEDS ORDERED: HEPARIN SOD (PORCINE) 1000 UNIT/ML SDV IV PRN (13:30)
[2021-03-31] MEDS ORDERED: MANNITOL 25% 12.5GM/50 ML VIAL IV PRN (13:30)
[2021-03-31] MEDS: APIXABAN 5 MG TABLET PO SCH (15:09)
[2021-03-31] MEDS ORDERED: SODIUM CHLORIDE 0.9% 1000ML 2,000 ML ONE (15:24)
[2021-03-31 16:00] VITALS: BP 182/73
[2021-03-31] MEDS: METOPROLOL TARTRATE 50 MG TAB PO SCH (19:35)
[2021-03-31 20:00] VITALS: BP 139/83
[2021-03-31] MEDS: ATORVASTATIN 10 MG TAB PO SCH (20:40)
[2021-04-01] VITALS (7 sets, daily range): BP systolic 119–159; BP diastolic 58–72
[2021-04-01] MEDS: SODIUM CHLORIDE 0.9% 1000ML 1,000 ML IV SCH (00:21)
[2021-04-01] MEDS: LEVOTHYROXINE SODIUM 25 MCG TABLET PO SCH (05:21)
[2021-04-01 06:12] LABS: BASOPHILS # (AUTO) 0.1 (0.0-0.1); BASOPHILS % 0.8 % (0.0-1.0); EOSINOPHILS # (AUTO) 0.6 (0.0-0.4); EOSINOPHILS % 6.1 % (0.0-6.0); HEMATOCRIT 29.6 % (38.2-49.6); HEMOGLOBIN 9.7 g/dL (14.0-18.0); LYMPHOCYTES # (AUTO) 1.1 (1.0-3.2); LYMPHOCYTES % 10.8 % (18.0-39.1); MEAN CORPUSCULAR HEMOGLOBIN 33.4 pg (28-32); MEAN CORPUSCULAR HGB CONC 32.8 g/dL (31-35); MEAN CORPUSCULAR VOLUME 102.1 fL (81-99); MONOCYTES # (AUTO) 0.7 (0.2-0.8); MONOCYTES % 6.5 % (4.4-11.3); NEUTROPHILS # (AUTO) 7.9 (2.1-6.9); PLATELET COUNT 444 x10e3/uL (140-360); RED CELL DISTRIBUTION WIDTH 17.4 % (11.7-14.4)
[2021-04-01 06:44] LABS: ALBUMIN 2.3 g/dL (3.5-5.0); ALBUMIN/GLOBULIN RATIO 0.5 (0.8-2.0); ANION GAP 16.8 mmol/L (8-16); CALCIUM 8.5 mg/dL (8.4-10.2); CREATININE, SERUM 3.23 mg/dL (0.72-1.25); POTASSIUM 3.8 mmol/L (3.5-5.1)
[2021-04-01] MEDS: MEGACE 400MG/ 10ML CUP PO SCH (09:00)
[2021-04-01] MEDS: ACETAMINOPHEN 325 MG TAB PO PRN (09:10)
[2021-04-01] MEDS: METOPROLOL TARTRATE 50 MG TAB PO SCH ×2 (09:10→17:09)
[2021-04-01] MEDS: FUROSEMIDE INJ 10 MG/ML 4 ML VIAL IV SCH (09:10)
[2021-04-01] MEDS: THIAMINE HCL 100 MG TAB PO SCH (09:10)
[2021-04-01] MEDS: MESALAMINE 400 MG CAP PO SCH ×3 (09:10→21:27)
[2021-04-01] MEDS: MODAFINIL 100 MG TAB PO SCH (09:10)
[2021-04-01] MEDS: AMIODARONE HCL 200 MG TAB PO SCH (09:10)
[2021-04-01] MEDS: ALLOPURINOL 100 MG TAB PO SCH (09:10)
[2021-04-01] MEDS: FOLIC ACID 1 MG TAB PO SCH (15:20)
[2021-04-01] MEDS: KETOCONAZOLE 2% SHAMPOO 4OZ BTL TOP SCH (15:20)
[2021-04-01] MEDS: ATORVASTATIN 10 MG TAB PO SCH (21:27)
[2021-04-02] VITALS (8 sets, daily range): BP systolic 97–142; BP diastolic 43–81
[2021-04-02 05:29] LABS: BASOPHILS # (AUTO) 0.1 (0.0-0.1); BASOPHILS % 0.7 % (0.0-1.0); EOSINOPHILS # (AUTO) 0.7 (0.0-0.4); EOSINOPHILS % 7.5 % (0.0-6.0); HEMATOCRIT 28.5 % (38.2-49.6); HEMOGLOBIN 9.1 g/dL (14.0-18.0); LYMPHOCYTES # (AUTO) 1.3 (1.0-3.2); LYMPHOCYTES % 14.9 % (18.0-39.1); MEAN CORPUSCULAR HEMOGLOBIN 33.3 pg (28-32); MEAN CORPUSCULAR HGB CONC 31.9 g/dL (31-35); MEAN CORPUSCULAR VOLUME 104.4 fL (81-99); MONOCYTES # (AUTO) 0.9 (0.2-0.8); MONOCYTES % 10.1 % (4.4-11.3); NEUTROPHILS # (AUTO) 5.8 (2.1-6.9); PLATELET COUNT 435 x10e3/uL (140-360); RED BLOOD COUNT 2.73 x10e6/uL (4.3-5.7); RED CELL DISTRIBUTION WIDTH 17.4 % (11.7-14.4)
[2021-04-02] MEDS: LEVOTHYROXINE SODIUM 25 MCG TABLET PO SCH (05:54)
[2021-04-02 06:04] LABS: ALBUMIN 2.4 g/dL (3.5-5.0); ANION GAP 16.1 mmol/L (8-16); CALCIUM 9.1 mg/dL (8.4-10.2); CREATININE, SERUM 3.21 mg/dL (0.72-1.25); POTASSIUM 4.1 mmol/L (3.5-5.1)
[2021-04-02 07:25] LABS: BILIRUBIN,DIRECT 0.9 mg/dL (0.0-0.5)
[2021-04-02] MEDS: FUROSEMIDE INJ 10 MG/ML 4 ML VIAL IV SCH (08:30)
[2021-04-02] MEDS: MESALAMINE 400 MG CAP PO SCH ×3 (09:00→21:41)
[2021-04-02] MEDS: MODAFINIL 100 MG TAB PO SCH (09:00)
[2021-04-02] MEDS: MEGACE 400MG/ 10ML CUP PO SCH (09:00)
[2021-04-02] MEDS: AMIODARONE HCL 200 MG TAB PO SCH (09:00)
[2021-04-02] MEDS: THIAMINE HCL 100 MG TAB PO SCH (09:00)
[2021-04-02] MEDS: ALLOPURINOL 100 MG TAB PO SCH (09:00)
[2021-04-02] MEDS ORDERED: LIDOCAINE HCL 1% LOCAL INJ 20 ML VIAL ONE (09:47)
[2021-04-02] MEDS ORDERED: SODIUM CHLORIDE 0.9% 250ML 250 ML ONE (09:48)
[2021-04-02] MEDS ORDERED: MIDAZOLAM HCL 2 MG/2 ML VIAL ONE (09:51)
[2021-04-02] MEDS ORDERED: FENTANYL CITRATE/PF 100MCG/2 ML INJ ONE (09:51)
[2021-04-02] MEDS ORDERED: HEPARIN SOD (PORCINE) 1000 UNIT/ML SDV ONE (10:03)
[2021-04-02] MEDS ORDERED: CEFAZOLIN SOD 1 GM/NS 50ML 50 ML IV ONE (10:04)
[2021-04-02] MEDS: FOLIC ACID 1 MG TAB PO SCH (12:37)
[2021-04-02] MEDS: KETOCONAZOLE 2% SHAMPOO 4OZ BTL TOP SCH (12:37)
[2021-04-02] MEDS: ACETAMINOPHEN 325 MG TAB PO PRN (14:00)
[2021-04-02] MEDS: METOPROLOL TARTRATE INJ 1 MG/ML VIAL IV PRN (20:45)
[2021-04-02] MEDS: ATORVASTATIN 10 MG TAB PO SCH (21:41)
[2021-04-03] VITALS (8 sets, daily range): BP systolic 126–160; BP diastolic 58–74
[2021-04-03] MEDS: LEVOTHYROXINE SODIUM 25 MCG TABLET PO SCH (05:14)
[2021-04-03 05:28] LABS: HEMATOCRIT 27.9 % (38.2-49.6); HEMOGLOBIN 8.9 g/dL (14.0-18.0)
[2021-04-03] MEDS: METOPROLOL TARTRATE INJ 1 MG/ML VIAL IV PRN (05:43)
[2021-04-03 05:45] LABS: INR 1.13; PROTHROMBIN TIME 15.2 seconds (11.9-14.5)
[2021-04-03 06:05] LABS: ALBUMIN 2.4 g/dL (3.5-5.0); ALBUMIN/GLOBULIN RATIO 0.6 (0.8-2.0); ANION GAP 15.2 mmol/L (8-16); CALCIUM 8.8 mg/dL (8.4-10.2); CREATININE, SERUM 2.47 mg/dL (0.72-1.25); POTASSIUM 3.2 mmol/L (3.5-5.1)
[2021-04-03] MEDS: THIAMINE HCL 100 MG TAB PO SCH (09:00)
[2021-04-03] MEDS: ALLOPURINOL 100 MG TAB PO SCH (09:00)
[2021-04-03] MEDS: MODAFINIL 100 MG TAB PO SCH (09:00)
[2021-04-03] MEDS: MEGACE 400MG/ 10ML CUP PO SCH (09:00)
[2021-04-03] MEDS: MESALAMINE 400 MG CAP PO SCH ×3 (09:00→22:33)
[2021-04-03] MEDS: FUROSEMIDE INJ 10 MG/ML 4 ML VIAL IV SCH (11:43)
[2021-04-03] MEDS ORDERED: POTASSIUM CHLORIDE 20 MEQ TAB CR PO ONE (11:45)
[2021-04-03] MEDS: AMIODARONE HCL 200 MG TAB PO SCH (12:44)
[2021-04-03] MEDS: FOLIC ACID 1 MG TAB PO SCH (12:44)
[2021-04-03] MEDS: KETOCONAZOLE 2% SHAMPOO 4OZ BTL TOP SCH (15:59)
[2021-04-03] MEDS: ATORVASTATIN 10 MG TAB PO SCH (22:33)
[2021-04-03] MEDS: METOPROLOL TARTRATE 50 MG TAB PO SCH (22:33)
[2021-04-04] VITALS (7 sets, daily range): BP systolic 99–166; BP diastolic 44–70
[2021-04-04] MEDS: LEVOTHYROXINE SODIUM 25 MCG TABLET PO SCH (05:39)
[2021-04-04] MEDS: ALLOPURINOL 100 MG TAB PO SCH (09:00)
[2021-04-04] MEDS: MEGACE 400MG/ 10ML CUP PO SCH (09:00)
[2021-04-04] MEDS: FUROSEMIDE INJ 10 MG/ML 4 ML VIAL IV SCH (09:00)
[2021-04-04] MEDS: THIAMINE HCL 100 MG TAB PO SCH (09:00)
[2021-04-04] MEDS: MESALAMINE 400 MG CAP PO SCH ×3 (09:00→21:15)
[2021-04-04] MEDS: FOLIC ACID 1 MG TAB PO SCH (09:00)
[2021-04-04 10:19] LABS: ANION GAP 15.4 mmol/L (8-16); CALCIUM 8.3 mg/dL (8.4-10.2); CREATININE, SERUM 2.44 mg/dL (0.72-1.25); POTASSIUM 4.4 mmol/L (3.5-5.1)
[2021-04-04] MEDS: KETOCONAZOLE 2% SHAMPOO 4OZ BTL TOP SCH (11:30)
[2021-04-04] MEDS: AMIODARONE HCL 200 MG TAB PO SCH (12:37)
[2021-04-04] MEDS: METOPROLOL TARTRATE 50 MG TAB PO SCH ×2 (12:37→16:44)
[2021-04-04] MEDS: ATORVASTATIN 10 MG TAB PO SCH (21:15)
[2021-04-05] VITALS (9 sets, daily range): BP systolic 99–142; BP diastolic 44–70
[2021-04-05] MEDS: LEVOTHYROXINE SODIUM 25 MCG TABLET PO SCH (05:40)
[2021-04-05] MEDS: METOPROLOL TARTRATE 50 MG TAB PO SCH ×2 (08:43→17:00)
[2021-04-05] MEDS: FOLIC ACID 1 MG TAB PO SCH (08:43)
[2021-04-05] MEDS: AMIODARONE HCL 200 MG TAB PO SCH (08:43)
[2021-04-05] MEDS: FUROSEMIDE INJ 10 MG/ML 4 ML VIAL IV SCH (08:43)
[2021-04-05] MEDS: THIAMINE HCL 100 MG TAB PO SCH (08:44)
[2021-04-05] MEDS: MESALAMINE 400 MG CAP PO SCH ×3 (08:44→21:50)
[2021-04-05] MEDS: ALLOPURINOL 100 MG TAB PO SCH (08:44)
[2021-04-05] MEDS: MEGACE 400MG/ 10ML CUP PO SCH (08:44)
[2021-04-05] MEDS ORDERED: ALTEPLASE RECOMBINANT 2 MG/2 ML VIAL IV ONE (09:30)
[2021-04-05] MEDS: KETOCONAZOLE 2% SHAMPOO 4OZ BTL TOP SCH (11:52)
[2021-04-05 13:46] LABS: FERRITIN 350.77 ng/mL (21.81-274.66)
[2021-04-05] MEDS: ACETAMINOPHEN 325 MG TAB PO PRN (16:21)
[2021-04-05] MEDS: ATORVASTATIN 10 MG TAB PO SCH (21:50)
[2021-04-06 01:06] VITALS: BP 176/66
[2021-04-06 05:48] VITALS: BP 145/64
[2021-04-06] MEDS: LEVOTHYROXINE SODIUM 25 MCG TABLET PO SCH (06:00)
[2021-04-06 07:34] LABS: BASOPHILS # (AUTO) 0.1 (0.0-0.1); BASOPHILS % 0.8 % (0.0-1.0); EOSINOPHILS # (AUTO) 0.4 (0.0-0.4); EOSINOPHILS % 4.4 % (0.0-6.0); HEMATOCRIT 27.7 % (38.2-49.6); HEMOGLOBIN 8.9 g/dL (14.0-18.0); LYMPHOCYTES # (AUTO) 1.1 (1.0-3.2); LYMPHOCYTES % 12.7 % (18.0-39.1); MEAN CORPUSCULAR HGB CONC 32.1 g/dL (31-35); MEAN CORPUSCULAR VOLUME 102.6 fL (81-99); MONOCYTES # (AUTO) 1.1 (0.2-0.8); MONOCYTES % 13.2 % (4.4-11.3); NEUTROPHILS # (AUTO) 5.6 (2.1-6.9); NEUTROPHILS % 67.7 % (38.7-80.0); PLATELET COUNT 483 x10e3/uL (140-360); RED CELL DISTRIBUTION WIDTH 17.2 % (11.7-14.4)
[2021-04-06 08:06] LABS: ANION GAP 16.8 mmol/L (8-16); CALCIUM 8.7 mg/dL (8.4-10.2); CREATININE, SERUM 3.09 mg/dL (0.72-1.25); POTASSIUM 3.8 mmol/L (3.5-5.1)
[2021-04-06] MEDS ORDERED: SODIUM CHLORIDE 0.9% 250ML 250 ML ONE (08:19)
[2021-04-06 08:32] VITALS: BP_SYST 142; BP_SYST 150; BP_DIAS 70; BP_DIAS 74
[2021-04-06] MEDS: AMIODARONE HCL 200 MG TAB PO SCH (08:39)
[2021-04-06] MEDS: FOLIC ACID 1 MG TAB PO SCH (08:39)
[2021-04-06] MEDS: METOPROLOL TARTRATE 50 MG TAB PO SCH ×2 (08:39→16:54)
[2021-04-06] MEDS: ALLOPURINOL 100 MG TAB PO SCH (08:39)
[2021-04-06] MEDS: THIAMINE HCL 100 MG TAB PO SCH (08:39)
[2021-04-06] MEDS: MEGACE 400MG/ 10ML CUP PO SCH (08:39)
[2021-04-06] MEDS: FUROSEMIDE INJ 10 MG/ML 4 ML VIAL IV SCH (08:39)
[2021-04-06] MEDS: MESALAMINE 400 MG CAP PO SCH ×2 (08:39→16:54)
[2021-04-06 08:50] VITALS: BP 142/70
[2021-04-06] MEDS ORDERED: APIXABAN 5 MG TABLET PO SCH ×2 (09:00→10:45)
[2021-04-06] MEDS ORDERED: IRON SUCROSE 100 MG in SODIUM CHLORIDE 0.9% 100 ML 100 ML IV SCH (09:00)
[2021-04-06] MEDS: KETOCONAZOLE 2% SHAMPOO 4OZ BTL TOP SCH (11:48)
[2021-04-06 11:53] VITALS: BP 126/53
[2021-04-06] MEDS: ACETAMINOPHEN 325 MG TAB PO PRN (12:21)
[2021-04-06 16:37] VITALS: BP 118/57
== END 2021-04-06 18:30 | DRG 673 ==
LOC: ER 16:40 → ERHOLD 19:18 → IMCU 03-18 07:45 → OBSVTOIN 03-18 13:27 → MED/SURG 03-18 16:49 → ICU 03-20 23:42 → MED/SURG 03-21 12:28 → MED/SURG2 03-24 14:38
PROVIDERS: ADMIT Internal Medicine; ATTEND Internal Medicine
PROC: 02HV33Z Insertion of Infusion Device into Superior Vena Cava, Percutaneous Approach (ICD-10-PCS; principal; 2021-03-27)
PROC: 5A1D70Z Performance of Urinary Filtration, Intermittent, Less than 6 Hours Per Day (ICD-10-PCS; 2021-03-30)
PROC: 5A1D70Z Performance of Urinary Filtration, Intermittent, Less than 6 Hours Per Day (ICD-10-PCS; 2021-03-31)
PROC: 5A1D70Z Performance of Urinary Filtration, Intermittent, Less than 6 Hours Per Day (ICD-10-PCS; 2021-04-01)
PROC: 0JH63XZ Insertion of Tunneled Vascular Access Device into Chest Subcutaneous Tissue and Fascia, Percutaneous Approach (ICD-10-PCS; 2021-04-02)
PROC: 02PY33Z Removal of Infusion Device from Great Vessel, Percutaneous Approach (ICD-10-PCS; 2021-04-02)
PROC: 02HV33Z Insertion of Infusion Device into Superior Vena Cava, Percutaneous Approach (ICD-10-PCS; 2021-04-02)
PROC: B5181ZA Fluoroscopy of Superior Vena Cava using Low Osmolar Contrast, Guidance (ICD-10-PCS; 2021-04-02)
PROC: 5A1D70Z Performance of Urinary Filtration, Intermittent, Less than 6 Hours Per Day (ICD-10-PCS; 2021-04-02)
PROC: 5A1D70Z Performance of Urinary Filtration, Intermittent, Less than 6 Hours Per Day (ICD-10-PCS; 2021-04-03)
PROC: 5A1D70Z Performance of Urinary Filtration, Intermittent, Less than 6 Hours Per Day (ICD-10-PCS; 2021-04-04)
DX: N17.0 Acute kidney failure with tubular necrosis (principal); J96.01 Acute respiratory failure with hypoxia; K76.7 Hepatorenal syndrome; F10.131 Alcohol abuse with withdrawal delirium; E87.1 Hypo-osmolality and hyponatremia; Z68.41 Body mass index [BMI] 40.0-44.9, adult; N39.0 Urinary tract infection, site not specified; I47.1 Supraventricular tachycardia; J90 Pleural effusion, not elsewhere classified; I12.0 Hypertensive chronic kidney disease with stage 5 chronic kidney disease or end stage renal disease; N18.6 End stage renal disease; E66.01 Morbid (severe) obesity due to excess calories; J44.9 Chronic obstructive pulmonary disease, unspecified; F17.210 Nicotine dependence, cigarettes, uncomplicated; E11.22 Type 2 diabetes mellitus with diabetic chronic kidney disease; K70.9 Alcoholic liver disease, unspecified; E87.6 Hypokalemia; B96.1 Klebsiella pneumoniae [K. pneumoniae] as the cause of diseases classified elsewhere; G31.2 Degeneration of nervous system due to alcohol; B95.62 Methicillin resistant Staphylococcus aureus infection as the cause of diseases classified elsewhere; G20 Parkinson's disease; Z20.822 Contact with and (suspected) exposure to COVID-19; I48.0 Paroxysmal atrial fibrillation; D50.9 Iron deficiency anemia, unspecified; R53.81 Other malaise
CPT/HCPCS: 36415; 36556; 36558; 36600; 70450; 71045; 71046; 74470; 76770; 76937; 77001; 80048; 80053; 80076; 80307; 80320; 81001; 82140; 82550; 82553; 82570; 82607; 82728; 82746; 82805; 82947; 82948; 83540; 83735; 83880; 83935; 84100; 84295; 84300; 84443; 84466; 84484; 84520; 85014; 85018; 85025; 85045; 85049; 85610; 85730; 86704; 86705; 86706; 87040; 87086; 87186; 87340; 90962; 92523; 93005; 93306; 93971; 94660; 95812; 96361; 97139; 99251; 99284; C1752; C1769; C1892; G0378; J0690; J0692; J1644; J1650; J1756; J1940; J2001; J2060; J2150; J2250; J2543; J2920; J2997; J3010; J3370; J3411; J3475; J7030; J7042; J7050; U0002

== ENCOUNTER 2021-05-09 20:17 | Emergency (ER) | payer MEDICARE ==
[~2021-05-09] VITALS: Ht 175.3 cm; Wt 131.5 kg
[~2021-05-09 20:17] MED LIST changes: +COLCHICINE0.6 M1 PO; +TERAZOSIN HCL1 MG PO; +VITAMIN D350 MCG PO
== END 2021-05-09 22:00 | disposition home or self-care (01) ==
LOC: ER 20:23
DX: M25.532 Pain in left wrist (principal); M19.032 Primary osteoarthritis, left wrist; I13.0 Hypertensive heart and chronic kidney disease with heart failure and stage 1 through stage 4 chronic kidney disease, or unspecified chronic kidney disease; I50.9 Heart failure, unspecified; N18.9 Chronic kidney disease, unspecified; E11.22 Type 2 diabetes mellitus with diabetic chronic kidney disease; I48.91 Unspecified atrial fibrillation; M10.9 Gout, unspecified
CPT/HCPCS: 99283